=== PATIENT | female | born 1980 | race Caucasian/White ===

== ENCOUNTER 2017-04-13 19:23 | Emergency (ER) | payer SELFPAY ==
[2017-04-13 19:49] VITALS: BP 130/83; PULSE 91; RESP 20; TEMP 98; O2SAT 98
[2017-04-13] MEDS ORDERED: Oxymetazoline 0.05% Nasal Spray (30 ml) NS STA (19:55)
--- NOTE | 2017-04-13 19:59 | C.PDOC ---
History Of Present Illness 36 y/o female with Hx of asthma presents to ED with complaints of nasal congestion for 3 weeks and mild headache. Patient reports nasal discharge as "clear" and denies chest pain, sob, sore throat, vision changes or any other complaints at this time. Time Seen by Provider: 04/13/17 19:44 Chief Complaint (Nursing): Cough, Cold, Congestion History Per: Patient History/Exam Limitations: no limitations Onset/Duration Of Symptoms: Days Current Symptoms Are (Timing): Still Present Past Medical History Reviewed: Historical Data, Nursing Documentation, Vital Signs Vital Signs: Last Vital Signs Temp 98 F 04/13/17 19:47 Pulse 91 H 04/13/17 19:47 Resp 20 04/13/17 19:47 BP 130/83 04/13/17 19:47 Pulse Ox 98 04/13/17 20:01 - Medical History PMH: Asthma Surgical History: Appendectomy, Cholecystectomy Family History: States: No Known Family Hx - Social History Hx Alcohol Use: No Hx Substance Use: No - Immunization History Hx Tetanus Toxoid Vaccination: No Hx Influenza Vaccination: No Hx Pneumococcal Vaccination: No Review Of Systems Except As Marked, All Systems Reviewed And Found Negative. Constitutional: Negative for: Fever, Chills Eyes: Negative for: Vision Change ENT: Positive for: Nose Discharge, Nose Congestion Cardiovascular: Negative for: Chest Pain Respiratory: Negative for: Shortness of Breath Gastrointestinal: Negative for: Nausea, Vomiting Skin: Negative for: Rash Neurological: Positive for: Headache Physical Exam - Physical Exam Appears: Non-toxic, No Acute Distress Skin: Normal Color, Warm, Dry, No Rash Head: Atraumatic, Normacephalic Eye(s): bilateral: Normal Inspection Nose: Discharge (Clear) Oral Mucosa: Moist Throat: Normal, No Erythema Neck: Normal ROM, Supple Chest: Symmetrical Cardiovascular: Rhythm Regular, No Murmur Respiratory: Normal Breath Sounds, No Rales, No Rhonchi, No Wheezing Gastrointestinal/Abdominal: Soft, No Tenderness, No Guarding, No Rebound Extremity: Normal ROM, Capillary Refill (<2 seconds) Neurological/Psych: Oriented x3 ED Course And Treatment O2 Sat by Pulse Oximetry: 98 (RA) Pulse Ox Interpretation: Normal Medical Decision Making Medical Decision Making: nasal congestion - Plan: * Oxymetazoline * advise outpt f/u with ent. Disposition - Disposition Referrals: Jd Rivera MD [Staff Provider] - Disposition: HOME/ ROUTINE Disposition Time: 08:00 Condition: GOOD Additional Instructions: please follow up with your doctor. return to er with worsening symptoms or concerns. Prescriptions: Fluticasone Propionate [Flonase] 1 spr NS DAILY #1 bottle Instructions: Rhinosinusitis (ED) Forms: [email or web address] Connect (Indian) Print Language: SUDANESE - Clinical Impression Clinical Impression: Nasal congestion - Scribe Statement The provider has reviewed the documentation as recorded by the Scribshawn Pitt All medical record entries made by the Michelleibshawn were at my direction and personally dictated by me. I have reviewed the chart and agree that the record accurately reflects my personal performance of the history, physical exam, medical decision making, and the department course for this patient. I have also personally directed, reviewed, and agree with the discharge instructions and disposition.
[2017-04-13] MEDS ORDERED: Oxymetazoline 0.05% Nasal Spray (30 ml) NS ONE (20:04)
== END 2017-04-13 20:28 | disposition home or self-care (01) ==
LOC: C.ER 19:23
DX: R09.81 Nasal congestion (principal)

== ENCOUNTER 2017-04-27 07:21 | Inpatient (IN) | payer MEDICAID, OTHER ==
[2017-04-27] MEDS ORDERED: Ipratropium 0.02% Inhal Soln (0.5 mg/2.5 ml) UD IH ONE (07:32)
[2017-04-27] MEDS ORDERED: Albuterol 0.083% Inhal Sol (2.5 mg/3 mL) UD ONE ×3 (07:32→09:52)
[2017-04-27] MEDS ORDERED: Magnesium Sulfate 1 gm in D5W 1 GM/100 ML BAG IV STA (07:44)
[2017-04-27] MEDS ORDERED: Magnesium Sulfate 1 gm in D5W 1 GM/100 ML BAG IV ONE (07:44)
[2017-04-27] MEDS ORDERED: Albuterol-Ipratrop 3 mg / 0.5 (3 ml) UD INH STA (07:44)
[2017-04-27] MEDS ORDERED: EPINEPHrine 1 mg/ml (1:1000) Inj SC ONE (07:45)
[2017-04-27] MEDS ORDERED: EPINEPHrine 1 mg/ml (1:1000) Inj ONE (07:48)
[2017-04-27] MEDS ORDERED: Albuterol 0.083% Inhal Sol (2.5 mg/3 mL) UD IH STA ×3 (08:01→08:58)
[2017-04-27 08:10] LABS: BASO # 0.1 K/uL (0.0-0.2); BASO % 0.7 % (0.0-2.0); EOS % 12.7 % (0.0-4.0); HEMATOCRIT 46.5 % (34.0-47.0); LYMPH # 4.6 K/uL (1.0-4.3); LYMPH % 56.2 % (20.0-40.0); MEAN CELL VOLUME 93.1 fL (81.0-99.0); MEAN CORPUSCULAR HGB CONC 34.4 g/dL (33.0-37.0); MONO # 0.7 K/uL (0.0-0.8); MONO % 8.7 % (0.0-10.0); NRBC % 0.1 % (0.0-2.0); RED CELL DISTRIBUTION WIDTH 13.7 % (11.5-14.5); WHITE BLOOD COUNT 8.1 K/uL (4.8-10.8)
[2017-04-27 08:24] LABS: CHLORIDE 104 mmol/L (98-107); POTASSIUM 4.1 mmol/L (3.6-5.2); SODIUM 141 mmol/L (132-148)
[2017-04-27 08:26] LABS: ALB/GLOB RATIO 1.3 (1.0-2.1); AST/SGOT 25 U/L (14-36); BILIRUBIN,TOTAL 0.5 mg/dL (0.2-1.3); CARBON DIOXIDE 22 mmol/L (22-30); GFR AFRICAN-AMERICAN > 60; TOTAL PROTEIN 7.8 g/dL (6.3-8.3)
[2017-04-27 08:27] LABS: ALKALINE PHOSPHATASE 67 U/L (38-126); ALT/SGPT 24 U/L (9-52); BLOOD UREA NITROGEN 12 mg/dL (7-17); CALCIUM 9.5 mg/dl (8.6-10.4); GLUCOSE,RANDOM 101 mg/dL (65-105)
[2017-04-27] MEDS ORDERED: Sodium Chloride 0.9% 1,000 ML IV ONE (08:41)
--- NOTE | 2017-04-27 08:41 | C.PDOC ---
History Of Present Illness Patient presents to ED for SOB, wheezing - has h/o asthma as per . History limited due to clinical condition. Time Seen by Provider: 04/27/17 07:28 Chief Complaint (Nursing): Cough, Cold, Congestion History Per: Family History/Exam Limitations: clinical condition Onset/Duration Of Symptoms: Days Current Symptoms Are (Timing): Still Present Past Medical History Reviewed: Historical Data, Nursing Documentation, Vital Signs Vital Signs: Last Vital Signs Temp 98.6 F 05/01/17 00:00 Pulse 98 H 05/01/17 00:00 Resp 20 05/01/17 00:00 BP 135/84 05/01/17 00:00 Pulse Ox 99 05/01/17 08:18 - Medical History PMH: Asthma Surgical History: Appendectomy, Cholecystectomy Family History: States: No Known Family Hx - Social History Hx Alcohol Use: No Hx Substance Use: No - Immunization History Hx Tetanus Toxoid Vaccination: No Hx Influenza Vaccination: No Hx Pneumococcal Vaccination: No Review Of Systems Review Of Systems: ROS cannot be obtained secondary to pt's inabilty to answer questions. Physical Exam - Physical Exam Appears: In Acute Distress (in severe respiratory distress) Skin: Warm, Dry Eye(s): bilateral: Normal Inspection Oral Mucosa: Moist Cardiovascular: Rhythm Regular (tachycardic ) Respiratory: Accessory Muscle Use (severe), No Rales, No Rhonchi, Wheezing ( diffuse, audible wheezing), Other (tripoding) Extremity: Normal ROM, No Pedal Edema, No Calf Tenderness ED Course And Treatment - Laboratory Results Result Diagrams: 04/30/17 06:19 04/30/17 06:19 ECG: Interpreted By Me, Viewed By Me (sinus tachycardia 114 bpm, normal axis, no acute ST/T wave changes) ECG Interpretation: Abnormal O2 Sat by Pulse Oximetry: 99 (RA) Pulse Ox Interpretation: Normal - Radiology CXR: Interpreted by Me, Viewed By Me CXR Interpretation: Yes: No Acute Disease. No: Infiltrates Progress Note: Bipap ordered emergently. Patient placed on brick yard hand, given IV solumedrol, IV mag sulfate 2g, epinephrine SC, Terbutaline SC, nebulizer treatments. Reevaluation Time: 09:15 Reassessment Condition: Improved (Patient reassessed, is significantly improved - able to speak in full sentences, POx 100% on Bipap. She has h/o asthma, but denies prior admissions, intubations. Admits to nonproductive cough, has had wheezing for approx 1 week but worsened last night. On exam, (+) expiratory wheezing B/L. Patient will need admission for asthma exacerbation.) Critical Care Time - Critical Care Note Total Time (in mins): 45 Documented critical care: time excludes all time spent performing seperately billable procedures. Medical Decision Making Medical Decision Making: differential diagnoses considered: Asthma exacerbation, COPD, CHF, MO/ACS, PE, pneumonia, bronchitis Disposition - Disposition Disposition: HOSPITALIZED Disposition Time: 09:22 Condition: STABLE - Clinical Impression Clinical Impression: Asthma, Status asthmaticus Decision To Admit - Pt Status Changed To: Hospital Disposition Of: Inpatient - Admit Certification Admit to Inpatient:: After my assessment, the patient will require hospitalization for at least two midnights. This is because of the severity of symptoms shown, intensity of services needed, and/or the medical risk in this patient being treated as an outpatient. - InPatient: Physician Admission Certification: I certify that this patient requires 2 or more midnights of care for the following reason:: see notes - . Bed Request Type: Telemetry Admitting Physician: Alba Terrazas Patient Diagnosis: Asthma, Status asthmaticus
[2017-04-27 08:48] LABS: ABG ALLEN TEST POS; ARTERIAL BLOOD GAS MODE BiPAP; DRAW SITE LRA
[2017-04-27] MEDS ORDERED: Sodium Chloride 0.9% 1,000 ML ONE (09:02)
--- NOTE | 2017-04-27 09:47 | RAD ---
PROCEDURE: CHEST RADIOGRAPH, 1 VIEW HISTORY: Shortness of breath COMPARISON: None available. FINDINGS: LUNGS: Mild venous congestion. Mild patchy increased markings at the lung bases. PLEURA: No pneumothorax or pleural fluid seen. CARDIOVASCULAR: Normal. OSSEOUS STRUCTURES: No significant abnormalities. VISUALIZED UPPER ABDOMEN: Normal. OTHER FINDINGS: None. IMPRESSION: Mild venous congestion. Mild patchy increased markings at the lung bases.
[2017-04-27 09:56] LABS: RBC URINE < 1 /hpf (0-3); URINE BILIRUBIN NEGATIVE (NEGATIVE); URINE BLOOD NEGATIVE (NEGATIVE); URINE COLOR Yellow (YELLOW); URINE GLUCOSE (UA) 3+ mg/dL (Normal); URINE KETONE NEGATIVE (NEGATIVE); URINE LEUKOCYTE ESTERASE NEG Leu/uL (Negative); URINE PROTEIN NEGATIVE (NEGATIVE); URINE UROBILINOGEN NORMAL mg/dL (0.2-1.0); WBC URINE 1 /hpf (0-5)
[2017-04-27] MEDS: Albuterol 0.083% Inhal Sol (2.5 mg/3 mL) UD INH SCH ×2 (10:00→12:54)
[2017-04-27] MEDS ORDERED: Moxifloxacin IV 400mg/250ml NS 400 MG/250 ML BAG IVPB SCH (11:00)
[2017-04-27] MEDS ORDERED: Acetylcysteine 20% Inhal Soln (4ml) INH SCH ×2 (11:00→12:45)
--- NOTE | 2017-04-27 11:29 | CP.PCM.HP ---
<Domingo Downey - Last Filed: 04/27/17 15:09> History of Present Illness - History of Present Illness History of Present Illness: CC: SOB HPI: 36F PMHx asthma presented with shortness of breath. Pt said she has asthma since 8 years old and exacerbated 2 years ago for which she had to go to a hospital. Pt said this time felt more severe and started 1.5 months ago. Pt woke up 1-2 times every night due to trouble breathing and wheezing. Pt also uses rescue inhaler on daily basis. Patient also complains of sinusitis for several months and was treated in [place]. Pt said she only has nebulizer, rescue inhaler and Montelukast at home and she took them as directed. Pt also complains of back pain and bilateral headache with associated photophobia. Pt denied fever, chest pain, abdominal pain, constipation, dysuria or diarrhea. Per respiratory therapist, pt initially was unable to speak in complete sentences or perform pre/post treatment peak flow due to severe SOB when presented to ED. PMHx: asthma PSHx: hysterectomy 2010, cholecystectomy 2012, appendectomy 2013 FMHx: mother, aunt and son has asthma Social: denied tobacco use but grew up with second hand smoke from mother and current coworkers, denied ETOH or drugs. 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 absent: Fever, Night Sweats, Weakness - EENT Eyes: absent: Blurred Vision Nose/Mouth/Throat: Nasal Congestion - Cardiovascular Cardiovascular: Dyspnea. absent: Chest Pain, Edema, Leg Edema - Respiratory Respiratory: Cough, Dyspnea, Dyspnea on Exertion, Wheezing, Pain on Inspiration , Excessive Mucous Production - Gastrointestinal Gastrointestinal: absent: Abdominal Pain, Constipation, Diarrhea, Nausea, Vomiting - Genitourinary Genitourinary: absent: Dysuria, Pyuria - Musculoskeletal Musculoskeletal: Back Pain, Neck Pain. absent: Numbness - Integumentary Integumentary: absent: Skin Pain - Neurological Neurological: absent: Confusion - Psychiatric Psychiatric: absent: Anxiety Past Patient History - Infectious Disease Hx of Infectious Diseases: None - Past Social History Smoking Status: Never Smoked - PULMONARY Hx Asthma: Yes - PSYCHIATRIC Hx Substance Use: No - SURGICAL HISTORY Hx Appendectomy: Yes Hx Cholecystectomy: Yes - ANESTHESIA Hx Anesthesia: Yes Hx Anesthesia Reactions: Yes (HEADACHE) Meds Allergies/Adverse Reactions: Allergies Allergy/AdvReac Type Severity Reaction Status Date / Time No Known Allergies Allergy Verified 04/27/17 07:26 Physical Exam - Constitutional Appears: Non-toxic, No Acute Distress Additional comments: on BIPAP - Head Exam Head Exam: NORMOCEPHALIC - Eye Exam Eye Exam: Normal appearance Pupil Exam: NORMAL ACCOMODATION - Respiratory Exam Respiratory Exam: Accessory Muscle Use, Decreased Breath Sounds, Rales, Rhonchi , Wheezes, NORMAL BREATHING PATTERN Additional comments: on BIPAP - Cardiovascular Exam Cardiovascular Exam: Tachycardia, +S1, +S2. absent: Gallop, Rubs - GI/Abdominal Exam GI & Abdominal Exam: Normal Bowel Sounds, Soft. absent: Tenderness - Extremities Exam Extremities exam: Negative for: pedal edema, tenderness - Neurological Exam Neurological exam: Alert, Oriented x3 - Psychiatric Exam Psychiatric exam: Normal Mood - Skin Skin Exam: Dry, Intact Results - Vital Signs Recent Vital Signs: Last Vital Signs Temp 98.5 F 04/27/17 07:24 Pulse 112 H 04/27/17 09:00 Resp 22 04/27/17 09:00 BP 144/77 04/27/17 09:00 Pulse Ox 99 04/27/17 09:40 - Labs Result Diagrams: 04/27/17 07:59 04/27/17 07:59 Labs: Laboratory Results - last 24 hr 04/27/17 04/27/17 04/27/17 07:59 07:59 08:45 WBC 8.1 RBC 5.00 Hgb 16.0 Hct 46.5 MCV 93.1 MCH 32.0 H MCHC 34.4 RDW 13.7 Plt Count 229 MPV 10.0 Neut % (Auto) 21.7 L Lymph % (Auto) 56.2 H Morris % (Auto) 8.7 Eos % (Auto) 12.7 H Baso % (Auto) 0.7 Neut # 1.8 Lymph # 4.6 H Morris # 0.7 Eos # 1.0 H Baso # 0.1 Puncture Site Lra pCO2 42 pO2 67 L HCO3 22.4 ABG pH 7.34 L ABG Total CO2 24.0 ABG O2 Saturation 94.4 L ABG Base Excess -3.0 L Rafael Test Pos ABG Potassium 2.8 L A-a O2 Difference 594.0 Respiratory Index 8.9 Glucose 187 H Lactate 3.6 H Vent Mode Bipap FiO2 100.0 Inspiratory BiPAP 12 Expiratory BiPAP 6 Sodium 141 141.0 Potassium 4.1 Chloride 104 108.0 H Carbon Dioxide 22 Anion Gap 18 BUN 12 Creatinine 0.7 Est GFR ( Amer) > 60 Est GFR (Non-Af Amer) > 60 Random Glucose 101 Calcium 9.5 Total Bilirubin 0.5 AST 25 ALT 24 Alkaline Phosphatase 67 Total Protein 7.8 Albumin 4.4 Globulin 3.5 Albumin/Globulin Ratio 1.3 Arterial Blood Potassium 2.8 L Urine Color Urine Clarity Urine pH Ur Specific Piercy Urine Protein Urine Glucose (UA) Urine Ketones Urine Blood Urine Nitrate Urine Bilirubin Urine Urobilinogen Ur Leukocyte Esterase Urine WBC (Auto) Urine RBC (Auto) Ur Squamous Epith Cells Urine HCG, Qual 04/27/17 09:40 WBC RBC Hgb Hct MCV MCH MCHC RDW Plt Count MPV Neut % (Auto) Lymph % (Auto) Morris % (Auto) Eos % (Auto) Baso % (Auto) Neut # Lymph # Morris # Eos # Baso # Puncture Site pCO2 pO2 HCO3 ABG pH ABG Total CO2 ABG O2 Saturation ABG Base Excess Rafael Test ABG Potassium A-a O2 Difference Respiratory Index Glucose Lactate Vent Mode FiO2 Inspiratory BiPAP Expiratory BiPAP Sodium Potassium Chloride Carbon Dioxide Anion Gap BUN Creatinine Est GFR ( Amer) Est GFR (Non-Af Amer) Random Glucose Calcium Total Bilirubin AST ALT Alkaline Phosphatase Total Protein Albumin Globulin Albumin/Globulin Ratio Arterial Blood Potassium Urine Color Yellow Urine Clarity Clear Urine pH 6.0 Ur Specific Piercy 1.014 Urine Protein Negative Urine Glucose (UA) 3+ H Urine Ketones Negative Urine Blood Negative Urine Nitrate Negative Urine Bilirubin Negative Urine Urobilinogen Normal Ur Leukocyte Esterase Neg Urine WBC (Auto) 1 Urine RBC (Auto) < 1 Ur Squamous Epith Cells 1 Urine HCG, Qual Negative Assessment & Plan - Assessment and Plan (Free Text) Assessment: Severe persistent asthma exacerbation ABG PO2 67, PCO2 42, PCO3 22 and pH 7.34 on admission. Pt unable to complete peak flow per respiratory. Currently on BIPAP. Pt received Albuterol x3, Duoneb, epinephrine, Atrovent, Terbutaline and Magnesium in ED. CXR showed mild venous congestions with increased patchy bases, EKG showed sinus tach at 114 bpm without acute changes. Flu, Legionaire, GBS, N. meningitidis and S. pneumoniae AG negative. Pulmonary Dr. Pineda consulted (covering Dr. Magdaleno), help appreciated. Continue BIPAP PRN. Solumedrol 60mg IV q8H. Duoneb q4H. Cipro 400mg IV q12H started 04/27. Mucinex 600mg PO BID. Phenergan/Codeine PRN. Claritin 10mg PO daily and Singulair 10mg PO BID per Dr. Pineda. F/U repeat pre/post treatment peak flow. F/U electrolytes at 4pm and tomorrow AM. F/U repeat CXR tomorrow AM. F/U Mycoplasma and GAS AG. Chronic sinusitis OMT performed on the sinus. Cipro 400mg IV q12H started 04/27. Will consider CT sinus after clinically improved. Back pain Toradol 30mg IV q6H PRN. Headache Toradol 30mg IV q6H PRN. Prophylactic measure Protonix, SCD. <Alba Terrazas V - Last Filed: 04/27/17 17:09> Results - Vital Signs Recent Vital Signs: Last Vital Signs Temp 97.7 F 04/27/17 14:40 Pulse 116 H 04/27/17 15:53 Resp 16 04/27/17 14:40 BP 114/69 04/27/17 14:40 Pulse Ox 100 04/27/17 14:40 - Labs Result Diagrams: 04/27/17 07:59 04/27/17 15:56 Labs: Laboratory Results - last 24 hr 04/27/17 04/27/17 04/27/17 07:59 07:59 08:45 WBC 8.1 RBC 5.00 Hgb 16.0 Hct 46.5 MCV 93.1 MCH 32.0 H MCHC 34.4 RDW 13.7 Plt Count 229 MPV 10.0 Neut % (Auto) 21.7 L Lymph % (Auto) 56.2 H Morris % (Auto) 8.7 Eos % (Auto) 12.7 H Baso % (Auto) 0.7 Neut # 1.8 Lymph # 4.6 H Morris # 0.7 Eos # 1.0 H Baso # 0.1 Puncture Site Lra pCO2 42 pO2 67 L HCO3 22.4 ABG pH 7.34 L ABG Total CO2 24.0 ABG O2 Saturation 94.4 L ABG Base Excess -3.0 L Rafael Test Pos ABG Potassium 2.8 L A-a O2 Difference 594.0 Respiratory Index 8.9 Glucose 187 H Lactate 3.6 H Vent Mode Bipap FiO2 100.0 Inspiratory BiPAP 12 Expiratory BiPAP 6 Sodium 141 141.0 Potassium 4.1 Chloride 104 108.0 H Carbon Dioxide 22 Anion Gap 18 BUN 12 Creatinine 0.7 Est GFR ( Amer) > 60 Est GFR (Non-Af Amer) > 60 Random Glucose 101 Calcium 9.5 Magnesium Total Bilirubin 0.5 AST 25 ALT 24 Alkaline Phosphatase 67 Total Protein 7.8 Albumin 4.4 Globulin 3.5 Albumin/Globulin Ratio 1.3 Arterial Blood Potassium 2.8 L Urine Color Urine Clarity Urine pH Ur Specific Piercy Urine Protein Urine Glucose (UA) Urine Ketones Urine Blood Urine Nitrate Urine Bilirubin Urine Urobilinogen Ur Leukocyte Esterase Urine WBC (Auto) Urine RBC (Auto) Ur Squamous Epith Cells Urine HCG, Qual Influenza Typ A,B (EIA) H.influenzae Type B Ag Ur L.pneumophila Ag N.meningitidis ACY/W135 N.meningi B/E.coli K1 Ag Group B Strep Antigen S. pneumoniae Antigen 04/27/17 04/27/17 04/27/17 09:22 09:22 09:40 WBC RBC Hgb Hct MCV MCH MCHC RDW Plt Count MPV Neut % (Auto) Lymph % (Auto) Morris % (Auto) Eos % (Auto) Baso % (Auto) Neut # Lymph # Morris # Eos # Baso # Puncture Site pCO2 pO2 HCO3 ABG pH ABG Total CO2 ABG O2 Saturation ABG Base Excess Rafael Test ABG Potassium A-a O2 Difference Respiratory Index Glucose Lactate Vent Mode FiO2 Inspiratory BiPAP Expiratory BiPAP Sodium Potassium Chloride Carbon Dioxide Anion Gap BUN Creatinine Est GFR ( Amer) Est GFR (Non-Af Amer) Random Glucose Calcium Magnesium Total Bilirubin AST ALT Alkaline Phosphatase Total Protein Albumin Globulin Albumin/Globulin Ratio Arterial Blood Potassium Urine Color Yellow Urine Clarity Clear Urine pH 6.0 Ur Specific Piercy 1.014 Urine Protein Negative Urine Glucose (UA) 3+ H Urine Ketones Negative Urine Blood Negative Urine Nitrate Negative Urine Bilirubin Negative Urine Urobilinogen Normal Ur Leukocyte Esterase Neg Urine WBC (Auto) 1 Urine RBC (Auto) < 1 Ur Squamous Epith Cells 1 Urine HCG, Qual Negative Influenza Typ A,B (EIA) Negative for flu a/b H.influenzae Type B Ag Not required Ur L.pneumophila Ag N.meningitidis ACY/W135 Not required N.meningi B/E.coli K1 Ag Not required Group B Strep Antigen Not required S. pneumoniae Antigen Negative 04/27/17 04/27/17 11:53 15:56 WBC RBC Hgb Hct MCV MCH MCHC RDW Plt Count MPV Neut % (Auto) Lymph % (Auto) Morris % (Auto) Eos % (Auto) Baso % (Auto) Neut # Lymph # Morris # Eos # Baso # Puncture Site pCO2 pO2 HCO3 ABG pH ABG Total CO2 ABG O2 Saturation ABG Base Excess Rafael Test ABG Potassium A-a O2 Difference Respiratory Index Glucose Lactate Vent Mode FiO2 Inspiratory BiPAP Expiratory BiPAP Sodium 139 Potassium 4.5 Chloride 106 Carbon Dioxide 16 L Anion Gap 22 H BUN 8 Creatinine 0.7 Est GFR ( Amer) > 60 Est GFR (Non-Af Amer) > 60 Random Glucose 173 H Calcium 8.5 L Magnesium 1.8 Total Bilirubin AST ALT Alkaline Phosphatase Total Protein Albumin Globulin Albumin/Globulin Ratio Arterial Blood Potassium Urine Color Urine Clarity Urine pH Ur Specific Piercy Urine Protein Urine Glucose (UA) Urine Ketones Urine Blood Urine Nitrate Urine Bilirubin Urine Urobilinogen Ur Leukocyte Esterase Urine WBC (Auto) Urine RBC (Auto) Ur Squamous Epith Cells Urine HCG, Qual Influenza Typ A,B (EIA) H.influenzae Type B Ag Ur L.pneumophila Ag Negative N.meningitidis ACY/W135 N.meningi B/E.coli K1 Ag Group B Strep Antigen S. pneumoniae Antigen Attending/Attestation - Attestation I have personally seen and examined this patient.: Yes I have fully participated in the care of the patient.: Yes I have reviewed all pertinent clinical information: Yes Notes (Text): Patient seen, examined and case discussed with day-time resident. Patient seen in [facility] Bed 4 on 04/27/17 approximately 9:45AM. Patient with history of asthma, no prior hx intubation, diagnosed during childhood, comes in after persistent nasal congestion, worsening shortness of breathe, and wheezing. Patient reports she normally uses her inhaler sparingly but has required daily use this past week. Overnight, she felt worse and brought her in today. Discussed with ED Physician, patient was in acute respiratory distress--> in ED , given Terbutaline 0.5mg subq, Solumedrol 125mg IVPX1, Magnesium Sulfate 1gram IV X2, Epinephrine 0.5mg subqX1 and 4 Albuterol nebulizer treatments. Respiratory therapist unable to ascertain pre-flow prior to starting nebulizer treatment given patient's clinical status. Patient improved after initial interventions. Patient has facial tenderness over the forehead and zygoma. No meningeal signs. No nuchal rigidity. Neuro intact. Lung exam: patient is tight, on Bipap, poor air exchange, +wheezing Assessment/Plan 1) Acute Respiratory Distress secondary to Asthma exacerbation * Admit to telemetry * Change to inpatient given patient has severe asthma exacerbation * Consult: Dr. Pineda (pulm) covering for Dr. 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 pneumoniae: negative, negative: legionella; negative influenza, group A beta Strep pending 2) Asthma exacerbation * severe persistent (day symptoms for past week requiring nebulizer) 3) Sinusitis * Persistent symptoms in spite prior treatment * Prior ED visit on 04/13/17 * Start Ciprofloxocin 400mg Iv Q 12hours * ENT eval * noninvasive soft tissue techniques to assist with lymphatic drainage 4) Prophylactic care * SCDS b/l * Protonix 40mg IV Q daily for GI ppx
[2017-04-27] MEDS: MethylPREDNISolone 40 mg Vial IVP SCH ×4 (12:11→19:50)
[2017-04-27] MEDS ORDERED: Ciprofloxacin 400mg/200ml D5W 400 MG/200 ML BAG IVPB ONE (12:37)
[2017-04-27] MEDS: Ciprofloxacin 400mg/200ml D5W 400 MG/200 ML BAG IVPB SCH ×2 (12:45→23:21)
[2017-04-27] MEDS ORDERED: Albuterol-Ipratrop 3 mg / 0.5 (3 ml) UD ONE (12:45)
[2017-04-27] MEDS: Albuterol-Ipratrop 3 mg / 0.5 (3 ml) UD INH SCH ×3 (12:54→19:43)
[2017-04-27 13:27] LABS: LEGIONELLA AG URINE NEGATIVE (NEGATIVE)
[2017-04-27 13:34] LABS: H INFLUENZAE B NOT REQUIRED (NEGATIVE); N MENINGITIS ACY/W135 NOT REQUIRED (NEGATIVE); N MENINGITIS B/ECOLI K1 NOT REQUIRED (NEGATIVE)
[2017-04-27 16:22] LABS: CHLORIDE 106 mmol/L (98-107); POTASSIUM 4.5 mmol/L (3.6-5.2); SODIUM 139 mmol/L (132-148)
[2017-04-27 16:25] LABS: BLOOD UREA NITROGEN 8 mg/dL (7-17); CARBON DIOXIDE 16 mmol/L (22-30); GFR AFRICAN-AMERICAN > 60
[2017-04-27 16:26] LABS: CALCIUM 8.5 mg/dl (8.6-10.4); GLUCOSE,RANDOM 173 mg/dL (65-105); MAGNESIUM 1.8 mg/dL (1.6-2.3)
[2017-04-27] MEDS: Promethazine/Cod 6.25mg-10mg/5ml Syr UD PO PRN (18:22)
[2017-04-27] MEDS: Saccharomyces Boulardi 250 mg Cap PO SCH (18:23)
[2017-04-27] MEDS: guaiFENesin 600 mg ER Tab PO SCH (19:00)
--- NOTE | 2017-04-27 21:44 | CT ---
EXAM: CT Maxillofacial Sinuses Without Intravenous Contrast CLINICAL HISTORY: 36 years old, female; Signs and symptoms; Nasal congestion; Additional info: Sinusitis TECHNIQUE: Computed tomography images of the maxillofacial sinuses without intravenous contrast. All CT scans at this facility use one or more dose reduction techniques, viz.: automated exposure control; ma/kV adjustment per patient size (including targeted exams where dose is matched to indication; i.e. head); or iterative reconstruction technique. Coronal and sagittal reformatted images were created and reviewed. COMPARISON: No relevant prior studies available. FINDINGS: Maxillary sinuses: Moderate mucosal thickening/inspissated mucous. LEFT maxillary retention cyst. Sphenoid sinuses: Moderate to extensive mucosal thickening/inspissated mucous. Frontal sinuses: Moderate mucosal thickening/inspissated mucus/mild fluid. Ethmoid air cells: Near complete opacification/inspissated mucous. Nasal cavity/septum: Mucosal thickening. Bones/joints: No acute fracture. Soft tissues: Unremarkable. Orbits: Unremarkable as visualized. IMPRESSION: 1. Sinus disease as above.
--- NOTE | 2017-04-27 21:44 | CP.PCM.CON ---
History of Present Illness - History of Present Illness History of Present Illness: Chief complaint: Shortness of breath History present illness: 36-year-old female with a long-standing history of asthma, not controlled well came to the emergency room with a severe worsening shortness of breath. Patient has a long-standing history of asthma, she has a very frequent exacerbations in the past. Patient had a daily symptoms of shortness of breath, and the using only inhalers on and off, occasionally uses an nebulizers. Patient is not taking any inhaled corticosteroids. Patient is not monitoring her symptoms, and also not seeing the doctors properly. Patient does not have any pets, no gas or fumes exposure Patient started having the symptoms for 1 week, gradually got worse, last night the patient was not able to sleep well and this morning she was having severe shortness of breath, and unable to breathe, in the emergency room patient was immediately treated with the BiPAP and corticosteroids Past medical history: Bronchial asthma Patient does not have a allergy history Personal history: Nonsmoker nonalcoholic. Review of system noted from the chart Medication history reviewed Family history noncontributory Review of system: Complaining of increasing cough and wheezing shortness of breath mucus production no fever or chills. Vital signs reviewed No neck vein distention noted Bilateral wheezing, air entry noted CVS regular heart sound, no murmur noted Abdomen soft, nontender. Extremities no pedal edema NO BAKE MOLDER alert awake oriented 3, no functional neurological deficit Labs reviewed Elevated eosinophil noted. Chest x-ray no infiltrate Assessment and recommendation: 36-year-old female admitted with acute exacerbation of severe asthma, acute severe asthma. Continue the bronchodilators. Montelukast 10 mg twice a day. Claritin. IgE level. Continue this tonight and will follow the patient. Past Patient History - Infectious Disease Hx of Infectious Diseases: None - Past Medical History & Family History Past Medical History?: Yes - Past Social History Smoking Status: Never Smoked - PULMONARY Hx Asthma: Yes - MUSCULOSKELETAL/RHEUMATOLOGICAL Hx Falls: No - GASTROINTESTINAL Other/Comment: appendectomy/gall bladder remova/ - PSYCHIATRIC Hx Substance Use: No - SURGICAL HISTORY Hx Appendectomy: Yes Hx Cholecystectomy: Yes - ANESTHESIA Hx Anesthesia: Yes Hx Anesthesia Reactions: Yes (HEADACHE) Meds Allergies/Adverse Reactions: Allergies Allergy/AdvReac Type Severity Reaction Status Date / Time No Known Allergies Allergy Verified 04/27/17 07:26 - Medications Medications: Current Medications Albuterol/Ipratropium (Duoneb 3 Mg/0.5 Mg (3 Ml) Ud) 3 ml INH RQ4 [facility] Guaifenesin (Mucinex La) 600 mg PO BID [facility] Last Admin: 04/27/17 19:00 Dose: 600 mg Ciprofloxacin (Cipro 400mg/200ml Dsw) 400 mg in 200 mls @ 125 mls/hr IVPB Q12H [facility] Last Admin: 04/27/17 12:45 Dose: 125 mls/hr Ketorolac Tromethamine (Toradol) 30 mg IVP Q6 PRN PRN Reason: moderate pain Loratadine (Claritin) 10 mg PO DAILY [facility] Methylprednisolone (Solu-Medrol) 60 mg IVP Q8H [facility] Last Admin: 04/27/17 19:50 Dose: 60 mg Montelukast Sodium (Singulair) 10 mg PO BID [facility] Last Admin: 04/27/17 18:22 Dose: 10 mg Pantoprazole Sodium (Protonix Ec Tab) 40 mg PO DAILY [facility] Promethazine HCl/Codeine (Phenergan/Codeine Oral Syrup) 5 ml PO Q4 PRN PRN Reason: cough Last Admin: 04/27/17 18:22 Dose: 5 ml Saccharomyces Boulardii (Florastor) 250 mg PO BID [facility] Last Admin: 04/27/17 18:23 Dose: 250 mg Results - Vital Signs Recent Vital Signs: Last Vital Signs Temp 98 F 04/27/17 20:00 Pulse 128 H 04/27/17 20:30 Resp 21 04/27/17 20:30 BP 125/85 04/27/17 18:28 Pulse Ox 96 04/27/17 20:30 - Labs Result Diagrams: 04/27/17 07:59 04/27/17 15:56 Labs: Laboratory Results - last 24 hr 04/27/17 04/27/17 04/27/17 07:59 07:59 08:45 WBC 8.1 RBC 5.00 Hgb 16.0 Hct 46.5 MCV 93.1 MCH 32.0 H MCHC 34.4 RDW 13.7 Plt Count 229 MPV 10.0 Neut % (Auto) 21.7 L Lymph % (Auto) 56.2 H [place] % (Auto) 8.7 Eos % (Auto) 12.7 H Baso % (Auto) 0.7 Neut # 1.8 Lymph # 4.6 H [place] # 0.7 Eos # 1.0 H Baso # 0.1 Puncture Site Lra pCO2 42 pO2 67 L HCO3 22.4 ABG pH 7.34 L ABG Total CO2 24.0 ABG O2 Saturation 94.4 L ABG Base Excess -3.0 L Rafael Test Pos ABG Potassium 2.8 L A-a O2 Difference 594.0 Respiratory Index 8.9 Glucose 187 H Lactate 3.6 H Vent Mode Bipap FiO2 100.0 Inspiratory BiPAP 12 Expiratory BiPAP 6 Sodium 141 141.0 Potassium 4.1 Chloride 104 108.0 H Carbon Dioxide 22 Anion Gap 18 BUN 12 Creatinine 0.7 Est GFR ( Amer) > 60 Est GFR (Non-Af Amer) > 60 Random Glucose 101 Calcium 9.5 Magnesium Total Bilirubin 0.5 AST 25 ALT 24 Alkaline Phosphatase 67 Total Protein 7.8 Albumin 4.4 Globulin 3.5 Albumin/Globulin Ratio 1.3 Arterial Blood Potassium 2.8 L Urine Color Urine Clarity Urine pH Ur Specific [place] Urine Protein Urine Glucose (UA) Urine Ketones Urine Blood Urine Nitrate Urine Bilirubin Urine Urobilinogen Ur Leukocyte Esterase Urine WBC (Auto) Urine RBC (Auto) Ur Squamous Epith Cells Urine HCG, Qual Influenza Typ A,B (EIA) H.influenzae Type B Ag Ur L.pneumophila Ag N.meningitidis [id number] N.meningi B/E.coli K1 Ag Group B Strep Antigen S. pneumoniae Antigen 04/27/17 04/27/17 04/27/17 09:22 09:22 09:40 WBC RBC Hgb Hct MCV MCH MCHC RDW Plt Count MPV Neut % (Auto) Lymph % (Auto) [place] % (Auto) Eos % (Auto) Baso % (Auto) Neut # Lymph # [place] # Eos # Baso # Puncture Site pCO2 pO2 HCO3 ABG pH ABG Total CO2 ABG O2 Saturation ABG Base Excess Rafael Test ABG Potassium A-a O2 Difference Respiratory Index Glucose Lactate Vent Mode FiO2 Inspiratory BiPAP Expiratory BiPAP Sodium Potassium Chloride Carbon Dioxide Anion Gap BUN Creatinine Est GFR ( Amer) Est GFR (Non-Af Amer) Random Glucose Calcium Magnesium Total Bilirubin AST ALT Alkaline Phosphatase Total Protein Albumin Globulin Albumin/Globulin Ratio Arterial Blood Potassium Urine Color Yellow Urine Clarity Clear Urine pH 6.0 Ur Specific [place] 1.014 Urine Protein Negative Urine Glucose (UA) 3+ H Urine Ketones Negative Urine Blood Negative Urine Nitrate Negative Urine Bilirubin Negative Urine Urobilinogen Normal Ur Leukocyte Esterase Neg Urine WBC (Auto) 1 Urine RBC (Auto) < 1 Ur Squamous Epith Cells 1 Urine HCG, Qual Negative Influenza Typ A,B (EIA) Negative for flu a/b H.influenzae Type B Ag Not required Ur L.pneumophila Ag N.meningitidis [id number] Not required N.meningi B/E.coli K1 Ag Not required Group B Strep Antigen Not required S. pneumoniae Antigen Negative 04/27/17 04/27/17 11:53 15:56 WBC RBC Hgb Hct MCV MCH MCHC RDW Plt Count MPV Neut % (Auto) Lymph % (Auto) [place] % (Auto) Eos % (Auto) Baso % (Auto) Neut # Lymph # [place] # Eos # Baso # Puncture Site pCO2 pO2 HCO3 ABG pH ABG Total CO2 ABG O2 Saturation ABG Base Excess Rafael Test ABG Potassium A-a O2 Difference Respiratory Index Glucose Lactate Vent Mode FiO2 Inspiratory BiPAP Expiratory BiPAP Sodium 139 Potassium 4.5 Chloride 106 Carbon Dioxide 16 L Anion Gap 22 H BUN 8 Creatinine 0.7 Est GFR ( Amer) > 60 Est GFR (Non-Af Amer) > 60 Random Glucose 173 H Calcium 8.5 L Magnesium 1.8 Total Bilirubin AST ALT Alkaline Phosphatase Total Protein Albumin Globulin Albumin/Globulin Ratio Arterial Blood Potassium Urine Color Urine Clarity Urine pH Ur Specific [place] Urine Protein Urine Glucose (UA) Urine Ketones Urine Blood Urine Nitrate Urine Bilirubin Urine Urobilinogen Ur Leukocyte Esterase Urine WBC (Auto) Urine RBC (Auto) Ur Squamous Epith Cells Urine HCG, Qual Influenza Typ A,B (EIA) H.influenzae Type B Ag Ur L.pneumophila Ag Negative N.meningitidis [id number] N.meningi B/E.coli K1 Ag Group B Strep Antigen S. pneumoniae Antigen
[2017-04-28] MEDS: Albuterol-Ipratrop 3 mg / 0.5 (3 ml) UD INH SCH ×6 (00:44→19:30)
[2017-04-28] MEDS: MethylPREDNISolone 40 mg Vial IVP SCH ×3 (03:05→18:23)
[2017-04-28 06:34] LABS: BASO % 0.1 % (0.0-2.0); HEMATOCRIT 42.2 % (34.0-47.0); LYMPH # 1.1 K/uL (1.0-4.3); LYMPH % 7.5 % (20.0-40.0); MEAN CELL VOLUME 93.2 fL (81.0-99.0); MEAN CORPUSCULAR HGB CONC 33.2 g/dL (33.0-37.0); MEAN PLATELET VOLUME 10.2 fL (7.2-11.7); MONO # 0.4 K/uL (0.0-0.8); MONO % 2.9 % (0.0-10.0); PLATELET COUNT 211 K/uL (130-400); RED CELL DISTRIBUTION WIDTH 13.9 % (11.5-14.5); WHITE BLOOD COUNT 14.2 K/uL (4.8-10.8)
[2017-04-28 06:42] LABS: CHLORIDE 102 mmol/L (98-107)
[2017-04-28 06:43] LABS: POTASSIUM 4.4 mmol/L (3.6-5.2); SODIUM 137 mmol/L (132-148)
[2017-04-28 06:45] LABS: ALB/GLOB RATIO 1.2 (1.0-2.1); ALKALINE PHOSPHATASE 59 U/L (38-126); ALT/SGPT 30 U/L (9-52); AST/SGOT 19 U/L (14-36); BILIRUBIN,TOTAL 0.2 mg/dL (0.2-1.3); BLOOD UREA NITROGEN 12 mg/dL (7-17); CARBON DIOXIDE 19 mmol/L (22-30); GFR AFRICAN-AMERICAN > 60; GLUCOSE,RANDOM 134 mg/dL (65-105)
[2017-04-28 06:46] LABS: CALCIUM 9.5 mg/dl (8.6-10.4); PHOSPHOROUS 3.9 mg/dL (2.5-4.5)
[2017-04-28] MEDS ORDERED: Azithromycin 500 MG in Sodium Chloride 0.9% 250 ML IVPB ONE (07:26)
[2017-04-28 08:07] LABS: NEUTROPHIL 82 % (50-75); TOTAL CELLS COUNTED 100
--- NOTE | 2017-04-28 08:37 | RAD ---
Chest x-ray single frontal view History: Asthma exacerbation. Comparison: 04/27/2017 Findings: Mild venous congestion. Right hilar prominence. Patchy increased markings at the bilateral lung bases. Trace bilateral pleural effusions. Heart size within normal limits. Degenerative changes in the spine and shoulders. Impression: Mild venous congestion. Right hilar prominence. Patchy increased markings at the bilateral lung bases. Trace bilateral pleural effusions. Heart size within normal limits.
[2017-04-28] MEDS: guaiFENesin 600 mg ER Tab PO SCH ×2 (10:16→18:22)
[2017-04-28] MEDS: Saccharomyces Boulardi 250 mg Cap PO SCH ×2 (10:16→18:22)
[2017-04-28] MEDS: Pantoprazole 40 mg EC Tab PO SCH (10:17)
[2017-04-28] MEDS ORDERED: Albuterol-Ipratrop 3 mg / 0.5 (3 ml) UD INH STA (10:31)
--- NOTE | 2017-04-28 11:47 | CP.PCM.CON ---
History of Present Illness - History of Present Illness History of Present Illness: 36F PMHx asthma presented with shortness of breath. ID consulteed for antibiotic management c/o weakness headache and SOB cough mostly non productive Does not take maintainance meds No pets PMHx: asthma PSHx: hysterectomy 2010, cholecystectomy 2012, appendectomy 2013 FMHx: mother, aunt and son has asthma Social: denied tobacco use but grew up with second hand smoke from mother and current coworkers, denied ETOH or drugs. 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 PMD: none Review of Systems - Constitutional Constitutional: As Per HPI - EENT Eyes: absent: As Per HPI, Blind Spots, Blurred Vision, Change in Vision, Decreased Night Vision, Diplopia, Discharge, Dry Eye, Exophthalmos, Floaters, Irritation, Itchy Eyes, Loss of Peripheral Vision, Pain, Photophobia, Requires Corrective Lenses, Sees Flashes, Spots in Vision, Tunnel Vision, Other Visual Disturbances, Loss of Vision, Other Ears: absent: As Per HPI, Decreased Hearing, Ear Discharge, Ear Pain, Tinnitus, Abnormal Hearing, Disequilibrium, Dizziness, Other Nose/Mouth/Throat: absent: As Per HPI, Epistaxis, Nasal Congestion, Nasal Discharge, Nasal Obstruction, Nasal Trauma, Nose Pain, Post Nasal Drip, Sinus Pain, Sinus Pressure, Bleeding Gums, Change in Voice, Dental Pain, Dry Mouth, Dysphagia, Halitosis, Hoarsness, Lip Swelling, Mouth Lesions, Mouth Pain, Odynophagia, Sore Throat, Throat Swelling, Tongue Swelling, Facial Pain, Neck Pain, Neck Mass, Other - Breasts Breasts: absent: As Per HPI, Change in Shape, Mass, Pain, Nipple Discharge, Nipple Inversion, Skin Changes, Swelling, Other - Cardiovascular Cardiovascular: absent: As Per HPI, Acrocyanosis, Chest Pain, Chest Pain at Rest , Chest Pain with Activity, Claudication, Diaphoresis, Dyspnea, Dyspnea on Exertion, Edema, Irregular Heart Rhythm, Pain Radiating to Arm/Neck/Jaw, Leg Edema, Leg Ulcers, Lightheadedness, Orthopnea, Palpitations, Paroxysmal Nocturnal Dyspnea, Pedal Edema, Radiating Pain, Rapid Heart Rate, Slow Heart Rate, Syncope, Other - Respiratory Respiratory: As Per HPI, Cough, Dyspnea. absent: Hemoptysis - Gastrointestinal Gastrointestinal: absent: As Per HPI, Abdominal Pain, Belching, Bloating, Change in Bowel Habits, Change in Stool Character, Coffee Ground Emesis, Constipation, Cramping, Diarrhea, Dyspepsia, Dysphagia, Early Satiety, Excessive Flatus, Fecal Incontinence, Heartburn, Hematemesis, Hematochezia, Loose Stools, Melena, Nausea, Odynophagia, Temesmus, Vomiting, Other - Genitourinary Genitourinary: absent: As Per HPI, Change in Urinary Stream, Difficulty Urinating, Dysuria, Flank Pain, Hematuria, Pyuria, Nocturia, Urinary Incontinence, Urinary Frequency, Urinary Hesitance, Urinary Urgency, Voiding Freq/Small Amts, Freq UTI, Hx Renal/Bladder Calculi, Hx /Renal Surgery, Bladder Distension, Other - Reproductive: Female Reproductive:Female: absent: As Per HPI, Amenorrhea, Amenorrhea/ Control, Currently Menstual, Cycle <21 Days, Cycle >35 Days, Cycle Variable, Menses 1-7 Days, Menses >/= 8 Days, Menses Variable, Cycle > 4 Weeks Between, No Menses for 6 Months, Heavy Menses, Light Menses, Normal Menses, Spotting Between Cycles , S/P Hysterectomy, Menopausal, Post Menopausal, Premenarche, Abnormal Vaginal Bleeding, Dysmenorrhea, Dyspareunia, Genital Lesions, Genital Pruritis, Pelvic Pain, Prolapse Symptoms, Sexual Dysfunction, Vaginal Discharge, Vaginal Dryness , Vaginal Odor, Vaginal Pruritis, Other - Menstruation Menstruation: absent: As Per HPI, Amenorrhea, Amenorrhea/ Control, Currently Menstual, Cycle <21 Days, Cycle >35 Days, Cycle Variable, Menses 1-7 Days, Menses >/= 8 Days, Menses Variable, Cycle > 4 Weeks Between, No Menses for 6 Months, Heavy Menses, Light Menses, Normal Menses, Spotting Between Cycles , S/P Hysterectomy, Menopausal, Post Menopausal, Premenarche, Abnormal Vaginal Bleeding, Dysmenorrhea, Other - Musculoskeletal Musculoskeletal: absent: As Per HPI, Abnormal Gait, Arthralgias, Atrophy, Back Pain, Deformity, Joint Swelling, Limited Range of Motion, Loss of Height, Muscle Cramps, Muscle Weakness, Myalgias, Neck Pain, Numbness, Radiating Pain into Limb, Stiffness, Tingling, Other - Integumentary Integumentary: absent: As Per HPI, Acne, Alopecia, Bleeding Lesions, Change in Hair, Change in Nails, Change in Pigmentation, Changing Lesions, Dry Skin, Erythema, Furuncle, Hirsutism, Lesions, New Lesions, Non-Healing Lesions, Photosensitivity, Pruritus, Rash, Skin Pain, Skin Ulcer, Sores, Striae, Swelling , Unusual Bruising, Wounds, Jaundice, Other - Neurological Neurological: absent: As Per HPI, Abnormal Gait, Abnormal Hearing, Abnormal Movements, Abnormal Speech, Behavioral Changes, Burning Sensations, Confusion, Convulsions, Disequilibrium, Dizziness, Numbness, Focal Weakness, Frequent Falls , Headaches, Lack of Coordination, Loss of Vision, Memory Loss, Paresthesias, Radicular Pain, Restless Legs, Sensory Deficit, Syncope, Tingling, Tremor, Vertigo, Weakness, Other Visual Disturbances, Other - Psychiatric Psychiatric: absent: As Per HPI, Abnormal Sleep Pattern, Anhedonia, Anxiety, Auditory Hallucinations, Behavioral Changes, Change in Appetite, Change in Libido, Confusion, Depression, Difficulty Concentrating, Hallucinations, Homicidal Ideation, Hopelessness, Irritability, Memory Loss, Mood Swings, Panic Attacks, Paranoia, Suicidal Ideation, Visual Hallucinations, Tactile Hallucinations, Other - Endocrine Endocrine: absent: As Per HPI, Change in Body Appearance, Change in Libido, Cold Intolorance, Deepening of Voice, Excessive Sweating, Fatigue, Flushing, Heat Intolorance, Increase in Ring/Shoe/Hat Size, Palpitations, Polydipsia, Polyphagia, Polyuria, Other - Hematologic/Lymphatic Hematologic: absent: As Per HPI, Easy Bleeding, Easy Bruising, Lymphadenopathy, Other Past Patient History - Infectious Disease Hx of Infectious Diseases: None - Past Medical History & Family History Past Medical History?: Yes - Past Social History Smoking Status: Never Smoked - PULMONARY Hx Asthma: Yes - MUSCULOSKELETAL/RHEUMATOLOGICAL Hx Falls: No - GASTROINTESTINAL Other/Comment: appendectomy/gall bladder remova/ - PSYCHIATRIC Hx Substance Use: No - SURGICAL HISTORY Hx Appendectomy: Yes Hx Cholecystectomy: Yes - ANESTHESIA Hx Anesthesia: Yes Hx Anesthesia Reactions: Yes (HEADACHE) Meds Allergies/Adverse Reactions: Allergies Allergy/AdvReac Type Severity Reaction Status Date / Time No Known Allergies Allergy Verified 04/27/17 07:26 - Medications Medications: Current Medications Albuterol/Ipratropium (Duoneb 3 Mg/0.5 Mg (3 Ml) Ud) 3 ml INH RQ4 [facility] Last Admin: 04/28/17 11:00 Dose: 3 ml Guaifenesin (Mucinex La) 600 mg PO BID [facility] Last Admin: 04/28/17 10:16 Dose: 600 mg Azithromycin 500 mg/ Sodium (Chloride) 250 mls @ 250 mls/hr IVPB DAILY [facility] Ketorolac Tromethamine (Toradol) 30 mg IVP Q6 PRN PRN Reason: moderate pain Last Admin: 04/28/17 08:49 Dose: 30 mg Loratadine (Claritin) 10 mg PO DAILY [facility] Last Admin: 04/28/17 10:15 Dose: 10 mg Methylprednisolone (Solu-Medrol) 60 mg IVP Q8H [facility] Last Admin: 04/28/17 10:21 Dose: 60 mg Montelukast Sodium (Singulair) 10 mg PO BID [facility] Last Admin: 04/28/17 10:18 Dose: 10 mg Pantoprazole Sodium (Protonix Ec Tab) 40 mg PO DAILY [facility] Last Admin: 04/28/17 10:17 Dose: 40 mg Promethazine HCl/Codeine (Phenergan/Codeine Oral Syrup) 5 ml PO Q4 PRN PRN Reason: cough Last Admin: 04/27/17 18:22 Dose: 5 ml Saccharomyces Boulardii (Florastor) 250 mg PO BID [facility] Last Admin: 04/28/17 10:16 Dose: 250 mg Physical Exam - Constitutional Appears: In Acute Distress - Head Exam Head Exam: ATRAUMATIC, NORMAL INSPECTION, NORMOCEPHALIC - Eye Exam Eye Exam: PERRL. absent: Scleral icterus - ENT Exam ENT Exam: Mucous Membranes Dry, Normal External Ear Exam, Normal Oropharynx - Neck Exam Neck exam: Negative for: Lymphadenopathy - Respiratory Exam Respiratory Exam: Decreased Breath Sounds, Prolonged Expiratory Phase, Rhonchi, Wheezes - Cardiovascular Exam Cardiovascular Exam: REGULAR RHYTHM, +S1, +S2 - GI/Abdominal Exam GI & Abdominal Exam: Diminished Bowel Sounds, Soft. absent: Tenderness - Rectal Exam Rectal Exam: Deferred - Exam Exam: NORMAL INSPECTION - Extremities Exam Extremities exam: Negative for: pedal edema - Back Exam Back exam: absent: CVA tenderness (L), CVA tenderness (R), paraspinal tenderness - Neurological Exam Neurological exam: Alert, CN II-XII Intact, Oriented x3, Reflexes Normal - Psychiatric Exam Psychiatric exam: Normal Mood - Skin Skin Exam: Dry Results - Vital Signs Recent Vital Signs: Last Vital Signs Temp 98 F 04/27/17 20:00 Pulse 136 H 04/28/17 10:40 Resp 19 04/28/17 08:00 BP 101/65 04/28/17 06:39 Pulse Ox 96 04/28/17 08:00 - Labs Result Diagrams: 04/28/17 06:24 04/28/17 06:24 Labs: Laboratory Results - last 24 hr 04/27/17 04/27/17 04/27/17 09:22 09:22 11:53 WBC RBC Hgb Hct MCV MCH MCHC RDW Plt Count MPV Neut % (Auto) Lymph % (Auto) [place] % (Auto) Eos % (Auto) Baso % (Auto) Neut # Lymph # [place] # Eos # Baso # Neutrophils % (Manual) Band Neutrophils % Lymphocytes % (Manual) Monocytes % (Manual) Platelet Estimate RBC Morphology Sodium Potassium Chloride Carbon Dioxide Anion Gap BUN Creatinine Est GFR ( Amer) Est GFR (Non-Af Amer) Random Glucose Calcium Phosphorus Magnesium Total Bilirubin AST ALT Alkaline Phosphatase Total Protein Albumin Globulin Albumin/Globulin Ratio Influenza Typ A,B (EIA) Negative for flu a/b H.influenzae Type B Ag Not required Ur L.pneumophila Ag Negative Mycoplasma pneumon IgM Positive H N.meningitidis [id number] Not required N.meningi B/E.coli K1 Ag Not required Group B Strep Antigen Not required S. pneumoniae Antigen Negative 04/27/17 04/28/17 04/28/17 15:56 06:24 06:24 WBC 14.2 H D RBC 4.53 Hgb 14.0 D Hct 42.2 MCV 93.2 MCH 31.0 MCHC 33.2 RDW 13.9 Plt Count 211 MPV 10.2 Neut % (Auto) 89.5 H Lymph % (Auto) 7.5 L [place] % (Auto) 2.9 Eos % (Auto) 0.0 Baso % (Auto) 0.1 Neut # 12.7 H Lymph # 1.1 [place] # 0.4 Eos # 0.0 Baso # 0.0 Neutrophils % (Manual) 82 H Band Neutrophils % 1 Lymphocytes % (Manual) 16 L Monocytes % (Manual) 1 Platelet Estimate Normal RBC Morphology Normal Sodium 139 137 Potassium 4.5 4.4 Chloride 106 102 Carbon Dioxide 16 L 19 L Anion Gap 22 H 20 BUN 8 12 Creatinine 0.7 0.6 L Est GFR ( Amer) > 60 > 60 Est GFR (Non-Af Amer) > 60 > 60 Random Glucose 173 H 134 H Calcium 8.5 L 9.5 Phosphorus 3.9 Magnesium 1.8 2.0 Total Bilirubin 0.2 AST 19 ALT 30 Alkaline Phosphatase 59 Total Protein 7.0 Albumin 3.8 Globulin 3.2 Albumin/Globulin Ratio 1.2 Influenza Typ A,B (EIA) H.influenzae Type B Ag Ur L.pneumophila Ag Mycoplasma pneumon IgM N.meningitidis [id number] N.meningi B/E.coli K1 Ag Group B Strep Antigen S. pneumoniae Antigen Assessment & Plan (1) Mycoplasma pneumoniae [M. pneumoniae] as the cause of diseases classified elsewhere Status: Acute (2) Mycoplasma pneumoniae [M. pneumoniae] as the cause of diseases classified elsewhere Status: Acute (3) Asthma Status: Acute - Assessment and Plan (Free Text) Assessment: severe acute mycoplasma pneumonia cont iv antibiotics , bronchodilators, steroids and cpap support may require intubation
[2017-04-28] MEDS: Azithromycin 500 MG in Sodium Chloride 0.9% 250 ML IVPB SCH (12:31)
--- NOTE | 2017-04-28 13:01 | CP.PCM.PN ---
Subjective - Date & Time of Evaluation Date of Evaluation: 04/28/17 Time of Evaluation: 13:00 - Subjective Subjective: Medical Attending Note: Patient seen, examined with family at bedside. Patient reports breathing is about the same. Reports headache. denies chest pain , denies palpitations, +shortness of breathe, denies abdominal pain, denies nausea, denies constipation. + facial congestion. Discussed with RT, Corbin, patient had an exacerbation a little bit earlier. Patient is currently on BiPAP. Patient understands if breathing does not improve may require intubation/breathing machine. Discussed with ICU, patient is stable compared to earliery witnessed exacerbation. ABG is improved. Patient to remain on telemetry. Objective - Vital Signs/Intake and Output Vital Signs (last 24 hours): Temp Pulse Resp BP Pulse Ox 98 F 136 H 19 101/65 96 04/27/17 20:00 04/28/17 10:40 04/28/17 08:00 04/28/17 06:39 04/28/17 08:00 Intake and Output: 04/28/17 04/28/17 06:59 18:59 Intake Total 200 Output Total 400 Balance -200 - Medications Medications: Current Medications Acetaminophen (Tylenol 325mg Tab) 650 mg PO Q6 PRN PRN Reason: Headache Albuterol/Ipratropium (Duoneb 3 Mg/0.5 Mg (3 Ml) Ud) 3 ml INH RQ4 [facility] Last Admin: 04/28/17 11:00 Dose: 3 ml Guaifenesin (Mucinex La) 600 mg PO BID [facility] Last Admin: 04/28/17 10:16 Dose: 600 mg Azithromycin 500 mg/ Sodium (Chloride) 250 mls @ 250 mls/hr IVPB DAILY [facility] Piperacillin Sod/Tazobactam (Sod 3.375 gm/ Sodium Chloride) 100 mls @ 200 mls/ hr IVPB Q8H [facility] Ketorolac Tromethamine (Toradol) 30 mg IVP Q6 PRN PRN Reason: moderate pain Last Admin: 04/28/17 08:49 Dose: 30 mg Loratadine (Claritin) 10 mg PO DAILY [facility] Last Admin: 04/28/17 10:15 Dose: 10 mg Methylprednisolone (Solu-Medrol) 60 mg IVP Q8H [facility] Last Admin: 04/28/17 10:21 Dose: 60 mg Montelukast Sodium (Singulair) 10 mg PO BID [facility] Last Admin: 04/28/17 10:18 Dose: 10 mg Pantoprazole Sodium (Protonix Ec Tab) 40 mg PO DAILY [facility] Last Admin: 04/28/17 10:17 Dose: 40 mg Promethazine HCl/Codeine (Phenergan/Codeine Oral Syrup) 5 ml PO Q4 PRN PRN Reason: cough Last Admin: 04/27/17 18:22 Dose: 5 ml Saccharomyces Boulardii (Florastor) 250 mg PO BID [facility] Last Admin: 04/28/17 10:16 Dose: 250 mg - Labs Labs: 04/28/17 06:24 04/28/17 06:24 - Constitutional Appears: In Acute Distress, Younger Than Stated Age - Head Exam Head Exam: NORMAL INSPECTION - Eye Exam Eye Exam: EOMI - Respiratory Exam Respiratory Exam: Decreased Breath Sounds, Wheezes, Respiratory Distress - Cardiovascular Exam Cardiovascular Exam: Tachycardia, +S1, +S2 - GI/Abdominal Exam GI & Abdominal Exam: Soft, Normal Bowel Sounds. absent: Distended, Firm, Guarding, Rigid, Tenderness, Rebound - Extremities Exam Extremities Exam: Normal Capillary Refill. absent: Pedal Edema, Tenderness - Neurological Exam Neurological Exam: Alert, Awake, Oriented x3 - Psychiatric Exam Psychiatric exam: Anxious, Normal Affect, Normal Mood - Skin Skin Exam: Dry, Intact, Normal Color, Warm Assessment and Plan - Assessment and Plan (Free Text) Assessment: Assessment/Plan 1) Acute Respiratory Distress secondary to Asthma exacerbation, Mycoplasma Pneumonia, Sinusitis * Admit to telemetry * Change to inpatient given patient has severe asthma exacerbation * Consult: Dr. Pineda (pulm) covering for Dr. 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 pneumoniae: negative, negative: legionella; negative influenza, group A beta Strep pending 2) Asthma exacerbation * severe persistent (day symptoms for past week requiring nebulizer) * Repeat ABG today 3) Mycoplasma Pneumonia * Infectious Disease: Dr. Bettencourt on board * Azithromycin 500mg IV Q daily * Zosyn 3.375 IV Q 8 hours * + Mycoplasma IgM 4) Severe Sinusitis * CT Sinus: entensive sinusitis * ENT eval * noninvasive soft tissue techniques to assist with lymphatic drainage 5) Prophylactic care * SCDS b/l * Protonix 40mg IV Q daily for GI ppx * OOB
[2017-04-28 13:11] LABS: ABG ALLEN TEST PO; ARTERIAL BLOOD GAS MODE BiPAP; DRAW SITE RRA
[2017-04-28] MEDS: Piperacillin/Tazobact 3.375 GM in Sodium Chloride 100 ML IVPB SCH ×2 (14:01→21:20)
--- NOTE | 2017-04-28 14:27 | CON ---
DATE: 04/28/2017 REFERRING PHYSICIAN: Dr. Reed. REASON FOR CONSULTATION: Possible sinusitis. HISTORY OF PRESENT ILLNESS: This is a 36-year-old female who for the past month and a half has been having nasal congestion and sinus pain; it is constant, moderate in intensity and on both sides. PAST MEDICAL HISTORY: As noted in the chart by me. MEDICATIONS: As noted in the chart by me. PHYSICAL EXAMINATION: HEAD: Atraumatic and normocephalic. FACE: Good facial movements bilaterally. CONSTITUTIONAL: Well developed, well nourished. COMMUNICATION: Communicates well and appropriately. EXTERNAL NOSE AND EARS: No masses. No lesions. No erythema. No edema. INTERNAL NOSE: Deviated septum. No masses. No lesions. No erythema. No edema. Large turbinates. ORAL CAVITY AND OROPHARYNX: No masses. No lesions. No erythema. No edema. LIPS AND GUMS: No masses. No lesions. No erythema. No edema. NECK: Supple. THYROID: No thyromegaly. No goiter. LYMPH NODES: No lymphadenopathy of the neck. LABORATORY DATA: CAT scan was reviewed by me and reveals pansinusitis. ASSESSMENT AND PLAN: 1. Sinusitis. 2. Deviated septum. 3. Large turbinates. I will recommend that the medication be changed for the sinuses to either Augmentin or Bactrim that the patient should be sent home with for 2 weeks. Jd Rivera MD
--- NOTE | 2017-04-28 18:20 | CP.PCM.PN ---
Subjective - Date & Time of Evaluation Date of Evaluation: 04/28/17 Time of Evaluation: 18:18 - Subjective Subjective: pt had episode of sob this am placed on bipap now doiing ok on bipap chest good air entry but wheezing noted labs noted for mycoplasma on zithromax ige Pending asthma exacerbation with status on bipap continue the current treatment Objective - Vital Signs/Intake and Output Vital Signs (last 24 hours): Temp Pulse Resp BP Pulse Ox 98 F 110 H 17 108/52 L 100 04/27/17 20:00 04/28/17 16:40 04/28/17 16:40 04/28/17 12:39 04/28/17 16:40 Intake and Output: 04/28/17 04/28/17 06:59 18:59 Intake Total 200 Output Total 400 Balance -200 - Medications Medications: Current Medications Acetaminophen (Tylenol 325mg Tab) 650 mg PO Q6 PRN PRN Reason: Headache Albuterol/Ipratropium (Duoneb 3 Mg/0.5 Mg (3 Ml) Ud) 3 ml INH RQ4 [facility] Last Admin: 04/28/17 15:51 Dose: 3 ml Guaifenesin (Mucinex La) 600 mg PO BID [facility] Last Admin: 04/28/17 10:16 Dose: 600 mg Azithromycin 500 mg/ Sodium (Chloride) 250 mls @ 250 mls/hr IVPB DAILY [facility] Last Admin: 04/28/17 12:31 Dose: 250 mls/hr Piperacillin Sod/Tazobactam (Sod 3.375 gm/ Sodium Chloride) 100 mls @ 200 mls/ hr IVPB Q8H [facility] Last Admin: 04/28/17 14:01 Dose: 200 mls/hr Ketorolac Tromethamine (Toradol) 30 mg IVP Q6 PRN PRN Reason: moderate pain Last Admin: 04/28/17 08:49 Dose: 30 mg Loratadine (Claritin) 10 mg PO DAILY [facility] Last Admin: 04/28/17 10:15 Dose: 10 mg Methylprednisolone (Solu-Medrol) 60 mg IVP Q8H [facility] Last Admin: 04/28/17 10:21 Dose: 60 mg Montelukast Sodium (Singulair) 10 mg PO BID [facility] Last Admin: 04/28/17 10:18 Dose: 10 mg Pantoprazole Sodium (Protonix Ec Tab) 40 mg PO DAILY [facility] Last Admin: 04/28/17 10:17 Dose: 40 mg Promethazine HCl/Codeine (Phenergan/Codeine Oral Syrup) 5 ml PO Q4 PRN PRN Reason: cough Last Admin: 04/27/17 18:22 Dose: 5 ml Saccharomyces Boulardii (Florastor) 250 mg PO BID [facility] Last Admin: 04/28/17 10:16 Dose: 250 mg - Labs Labs: 04/28/17 06:24 04/28/17 06:24
[2017-04-29] MEDS: Albuterol-Ipratrop 3 mg / 0.5 (3 ml) UD INH SCH ×6 (00:52→19:35)
[2017-04-29] MEDS: MethylPREDNISolone 40 mg Vial IVP SCH ×3 (03:00→18:34)
[2017-04-29] MEDS: Piperacillin/Tazobact 3.375 GM in Sodium Chloride 100 ML IVPB SCH ×3 (04:59→21:14)
[2017-04-29] MEDS: Pantoprazole 40 mg EC Tab PO SCH (10:51)
[2017-04-29] MEDS: guaiFENesin 600 mg ER Tab PO SCH ×2 (10:51→17:13)
[2017-04-29] MEDS: Saccharomyces Boulardi 250 mg Cap PO SCH ×2 (10:51→17:13)
[2017-04-29] MEDS: Azithromycin 500 MG in Sodium Chloride 0.9% 250 ML IVPB SCH (10:52)
--- NOTE | 2017-04-29 14:34 | CP.PCM.PN ---
Subjective - Date & Time of Evaluation Date of Evaluation: 04/29/17 Time of Evaluation: 07:00 - Subjective Subjective: iv rx in progress Objective - Vital Signs/Intake and Output Vital Signs (last 24 hours): Temp Pulse Resp BP Pulse Ox 98.6 F 95 H 14 122/78 96 04/28/17 20:00 04/29/17 06:00 04/29/17 06:00 04/29/17 04:39 04/29/17 06:00 Intake and Output: 04/29/17 04/29/17 06:59 18:59 Intake Total 400 Output Total 1500 Balance -1100 - Medications Medications: Current Medications Acetaminophen (Tylenol 325mg Tab) 650 mg PO Q6 PRN PRN Reason: Headache Last Admin: 04/29/17 11:57 Dose: 650 mg Albuterol/Ipratropium (Duoneb 3 Mg/0.5 Mg (3 Ml) Ud) 3 ml INH RQ4 [facility] Last Admin: 04/29/17 11:19 Dose: 3 ml Guaifenesin (Mucinex La) 600 mg PO BID [facility] Last Admin: 04/29/17 10:51 Dose: 600 mg Azithromycin 500 mg/ Sodium (Chloride) 250 mls @ 250 mls/hr IVPB DAILY [facility] Last Admin: 04/29/17 10:52 Dose: 250 mls/hr Piperacillin Sod/Tazobactam (Sod 3.375 gm/ Sodium Chloride) 100 mls @ 200 mls/ hr IVPB Q8H [facility] Last Admin: 04/29/17 13:47 Dose: 200 mls/hr Loratadine (Claritin) 10 mg PO DAILY [facility] Last Admin: 04/29/17 10:50 Dose: 10 mg Methylprednisolone (Solu-Medrol) 60 mg IVP Q8H [facility] Last Admin: 04/29/17 10:54 Dose: 60 mg Montelukast Sodium (Singulair) 10 mg PO BID [facility] Last Admin: 04/29/17 10:52 Dose: 10 mg Pantoprazole Sodium (Protonix Ec Tab) 40 mg PO DAILY [facility] Last Admin: 04/29/17 10:51 Dose: 40 mg Promethazine HCl/Codeine (Phenergan/Codeine Oral Syrup) 5 ml PO Q4 PRN PRN Reason: cough Last Admin: 04/27/17 18:22 Dose: 5 ml Saccharomyces Boulardii (Florastor) 250 mg PO BID [facility] Last Admin: 04/29/17 10:51 Dose: 250 mg - Labs Labs: 04/28/17 06:24 04/28/17 06:24 - Constitutional Appears: Non-toxic, Chronically Ill - Head Exam Head Exam: NORMOCEPHALIC - Eye Exam Eye Exam: PERRL - ENT Exam ENT Exam: Mucous Membranes Dry - Neck Exam Neck Exam: absent: Lymphadenopathy - Respiratory Exam Respiratory Exam: Decreased Breath Sounds - Cardiovascular Exam Cardiovascular Exam: REGULAR RHYTHM - GI/Abdominal Exam GI & Abdominal Exam: Distended, Soft - Rectal Exam Rectal Exam: Deferred - Exam Exam: NORMAL INSPECTION - Extremities Exam Extremities Exam: absent: Pedal Edema - Back Exam Back Exam: absent: CVA tenderness (L), CVA tenderness (R), paraspinal tenderness - Neurological Exam Neurological Exam: Alert, Awake, Oriented x3 Assessment and Plan (1) Mycoplasma pneumoniae [M. pneumoniae] as the cause of diseases classified elsewhere Status: Acute (2) Mycoplasma pneumoniae [M. pneumoniae] as the cause of diseases classified elsewhere Status: Acute (3) Asthma Status: Acute
--- NOTE | 2017-04-29 16:38 | CP.PCM.PN ---
<Kim Wetzel - Last Filed: 04/29/17 17:10> Subjective - Date & Time of Evaluation Date of Evaluation: 04/29/17 Time of Evaluation: 07:00 - Subjective Subjective: Internal Medicine Progress note for Dr. Terrazas Patient states she has a left sided frontal temporal headache today. She said both of her eyes had difficulty seeing in the morning, but has resolved. Patient states she was a little dizzy in the morning, but did not have any nausea, or vomiting. Patient denies, fever, chills, difficulty with vision at this time. Patient states she feels better than yesterday, but still has difficulty breathing Patient was on Bipap 07/08 FiO2 60% today Objective - Vital Signs/Intake and Output Vital Signs (last 24 hours): Temp Pulse Resp BP Pulse Ox 98.6 F 95 H 14 122/78 96 04/28/17 20:00 04/29/17 06:00 04/29/17 06:00 04/29/17 04:39 04/29/17 06:00 Intake and Output: 04/29/17 04/29/17 06:59 18:59 Intake Total 400 Output Total 1500 Balance -1100 - Medications Medications: Current Medications Acetaminophen (Tylenol 325mg Tab) 650 mg PO Q6 PRN PRN Reason: Headache Last Admin: 04/29/17 11:57 Dose: 650 mg Albuterol/Ipratropium (Duoneb 3 Mg/0.5 Mg (3 Ml) Ud) 3 ml INH RQ4 [facility] Last Admin: 04/29/17 16:03 Dose: 3 ml Guaifenesin (Mucinex La) 600 mg PO BID [facility] Last Admin: 04/29/17 10:51 Dose: 600 mg Azithromycin 500 mg/ Sodium (Chloride) 250 mls @ 250 mls/hr IVPB DAILY [facility] Last Admin: 04/29/17 10:52 Dose: 250 mls/hr Piperacillin Sod/Tazobactam (Sod 3.375 gm/ Sodium Chloride) 100 mls @ 200 mls/ hr IVPB Q8H [facility] Last Admin: 04/29/17 13:47 Dose: 200 mls/hr Loratadine (Claritin) 10 mg PO DAILY [facility] Last Admin: 04/29/17 10:50 Dose: 10 mg Methylprednisolone (Solu-Medrol) 60 mg IVP Q8H [facility] Last Admin: 04/29/17 10:54 Dose: 60 mg Montelukast Sodium (Singulair) 10 mg PO BID [facility] Last Admin: 04/29/17 10:52 Dose: 10 mg Pantoprazole Sodium (Protonix Ec Tab) 40 mg PO DAILY [facility] Last Admin: 04/29/17 10:51 Dose: 40 mg Promethazine HCl/Codeine (Phenergan/Codeine Oral Syrup) 5 ml PO Q4 PRN PRN Reason: cough Last Admin: 04/27/17 18:22 Dose: 5 ml Saccharomyces Boulardii (Florastor) 250 mg PO BID [facility] Last Admin: 04/29/17 10:51 Dose: 250 mg - Labs Labs: 04/28/17 06:24 04/28/17 06:24 - Constitutional Appears: Non-toxic - Head Exam Head Exam: NORMAL INSPECTION - Eye Exam Eye Exam: EOMI, Normal appearance - ENT Exam ENT Exam: Mucous Membranes Moist - Neck Exam Neck Exam: Full ROM - Respiratory Exam Respiratory Exam: Wheezes (inspiratory and expiratory wheezes). absent: Accessory Muscle Use, Respiratory Distress - Cardiovascular Exam Cardiovascular Exam: REGULAR RHYTHM. absent: Bradycardia, Tachycardia - GI/Abdominal Exam GI & Abdominal Exam: Soft. absent: Tenderness, Pulsatile Mass - Extremities Exam Extremities Exam: Full ROM, Normal Inspection. absent: Pedal Edema - Neurological Exam Neurological Exam: Alert, Awake, Oriented x3 - Psychiatric Exam Psychiatric exam: Normal Affect, Normal Mood - Skin Skin Exam: Dry, Normal Color, Pallor, Warm Assessment and Plan - Assessment and Plan (Free Text) Assessment: 36F presents with acute respiratory distress, secondary to asthma exacerbation, was found to have Mycoplasma pneumonia and sinusitis. 1) Acute Respiratory Distress secondary to Asthma exacerbation, Mycoplasma Pneumonia, Sinusitis * severe asthma exacerbation * Dr. Pineda (pulm consult) covering for Dr. Magdaleno * in ED, given Terbutaline 0.5mg subq, Solumedrol 125mg IVPX1, Magnesium Sulfate 1gram IV X2, Epinephrine 0.5mg subqX1 and 4 Albuterol nebulizer treatments on 04/27/17 * Per pulm, patient appears to have allergic component given eosinophilia * Start Claritin and ordered for serum IgE * Duonebs 3ml Inhaled Q 4hours * Solumedrol 60mg IV Q 8 hours * S. pneumoniae: negative, negative: legionella; negative influenza a/b, group A beta Strep pending 2) Asthma exacerbation * severe persistent (day symptoms for past week requiring nebulizer) * f/u ABG 3) Mycoplasma Pneumonia * Infectious Disease: Dr. Bettencourt on board - Zosyn 3.[address] Bettencourt * Azithromycin 500mg IV QD, per Dr. Terrazas * Zosyn 3.375 IV Q8 hours * positive serology for Mycoplasma IgM 4) Severe Sinusitis * CT Sinus: entensive sinusitis * ENT eval 04/28 recommend antibiotic change to augmentin/bactrim for two weeks at home * noninvasive soft tissue techniques to assist with lymphatic drainage 5) Prophylactic care * SCDS b/l * Protonix 40mg IV Q daily for GI ppx * OOB <Alba Terrazas V - Last Filed: 05/02/17 10:31> Objective - Vital Signs/Intake and Output Vital Signs (last 24 hours): Temp Pulse Resp BP Pulse Ox 97.6 F 84 20 123/82 97 05/02/17 09:21 05/02/17 09:21 05/02/17 09:21 05/02/17 09:21 05/02/17 09:21 Intake and Output: 05/02/17 05/02/17 06:59 18:59 Intake Total 600 Balance 600 - Medications Medications: Current Medications Acetaminophen (Tylenol 325mg Tab) 650 mg PO Q6 PRN PRN Reason: Headache Last Admin: 04/29/17 11:57 Dose: 650 mg Albuterol/Ipratropium (Duoneb 3 Mg/0.5 Mg (3 Ml) Ud) 3 ml INH RQ4 [facility] Last Admin: 05/02/17 03:24 Dose: Not Given Albuterol/Ipratropium (Duoneb 3 Mg/0.5 Mg (3 Ml) Ud) 3 ml INH ONCE ONE Stop: 05/02/17 10:31 Guaifenesin (Mucinex La) 600 mg PO BID [facility] Last Admin: 05/01/17 17:52 Dose: 600 mg Azithromycin 500 mg/ Sodium (Chloride) 250 mls @ 250 mls/hr IVPB DAILY [facility] Last Admin: 05/01/17 11:18 Dose: 250 mls/hr Piperacillin Sod/Tazobactam (Sod 3.375 gm/ Sodium Chloride) 100 mls @ 200 mls/ hr IVPB Q8H [facility] Last Admin: 05/02/17 05:01 Dose: 200 mls/hr Loratadine (Claritin) 10 mg PO DAILY [facility] Last Admin: 05/01/17 11:18 Dose: 10 mg Methylprednisolone (Solu-Medrol) 40 mg IVP Q12 [facility] Last Admin: 05/01/17 22:45 Dose: Not Given Montelukast Sodium (Singulair) 10 mg PO BID [facility] Last Admin: 05/01/17 17:52 Dose: 10 mg Pantoprazole Sodium (Protonix Ec Tab) 40 mg PO DAILY [facility] Last Admin: 05/01/17 11:18 Dose: 40 mg Promethazine HCl/Codeine (Phenergan/Codeine Oral Syrup) 5 ml PO Q4 PRN PRN Reason: cough Last Admin: 05/01/17 11:20 Dose: 5 ml Saccharomyces Boulardii (Florastor) 250 mg PO BID [facility] Last Admin: 05/01/17 17:52 Dose: 250 mg - Labs Labs: 04/30/17 06:19 04/30/17 06:19 Attending/Attestation - Attestation I have personally seen and examined this patient.: Yes I have fully participated in the care of the patient.: Yes I have reviewed all pertinent clinical information, including history, physical exam and plan: Yes Notes (Text): This is late computer entry for 04/29/17. Patient seen, examined and case discussed with day-time resident. Patient is in the ICU stepdown awaiting for telemetry bed. Patient feels short of breathe but starting to feel a little bit better. Will continue patient on Solumedrol 60mg IV Q 8hours. Patient is getting non-invasive soft tissue techniques to help relieve congestion over the sinuses and facilitate breathing given she has severe asthma. Patient is currently on IV abx to covering for both Mycoplasma Pneumonia and severe sinusitis. Assessment/Plan 1) Acute Respiratory Distress secondary to Asthma exacerbation, Mycoplasma Pneumonia, Sinusitis * Admit to telemetry * Change to inpatient given patient has severe asthma exacerbation * Consult: Dr. Pineda (pulm) covering for Dr. 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 pneumoniae: negative, negative: legionella; negative influenza, Sputum: normal oral porsha * Promethazine w codeine 5ml PO Q 4hour PRN cough * Mucinex 600mg PO BID 2) Asthma exacerbation * severe persistent (day symptoms for past week requiring nebulizer) * ABG (04/28/17): oxygen well, not acidotic, not in CO2 retenion * Bipap PRN * Continue IV steroids 3) Mycoplasma Pneumonia * Infectious Disease: Dr. Bettencourt on board * Azithromycin 500mg IV Q daily (active since 04/28/17) * Zosyn 3.375 IV Q 8 hours (active since 04/28/17) * + Mycoplasma IgM * Promethazine w codeine 5ml PO Q 4hour PRN cough * Mucinex 600mg PO BID 4) Severe Sinusitis * CT Sinus (04/27/17): moderate mucosal thickening/inspissated mucus. left maxillary retention cyst. Moderate to entensive mucosal thickening/inspissated mucous in sphenoid sinues. Frontal sinuses: Moderate mucosal thickening/ inspissated mucus/mild fluid. Near complete opacification/inspissated mucoous. Mucosal thickening in nasal cavit * noninvasive soft tissue techniques to assist with lymphatic drainage daily--> patient permits and reports she is feeling better * Promethazine w codeine 5ml PO Q 4hour PRN cough * Mucinex 600mg PO BID 5) Prophylactic care * SCDS b/l * Protonix 40mg IV Q daily for GI ppx * OOB
[2017-04-29 17:08] LABS: BASO % 0.1 % (0.0-2.0); LYMPH # 1.2 K/uL (1.0-4.3); MEAN CELL VOLUME 92.9 fL (81.0-99.0); MEAN CORPUSCULAR HEMOGLOBIN 31.4 pg (27.0-31.0); MEAN CORPUSCULAR HGB CONC 33.7 g/dL (33.0-37.0); MEAN PLATELET VOLUME 9.4 fL (7.2-11.7); MONO # 0.7 K/uL (0.0-0.8); MONO % 4.7 % (0.0-10.0); PLATELET COUNT 197 K/uL (130-400); RED CELL DISTRIBUTION WIDTH 13.8 % (11.5-14.5); WHITE BLOOD COUNT 15.5 K/uL (4.8-10.8)
[2017-04-29 17:14] LABS: CHLORIDE 99 mmol/L (98-107)
[2017-04-29 17:15] LABS: POTASSIUM 4.3 mmol/L (3.6-5.2); SODIUM 138 mmol/L (132-148)
[2017-04-29 17:17] LABS: BILIRUBIN,TOTAL 0.3 mg/dL (0.2-1.3); GFR AFRICAN-AMERICAN > 60
[2017-04-29 17:18] LABS: ALB/GLOB RATIO 1.3 (1.0-2.1); ALKALINE PHOSPHATASE 45 U/L (38-126); ALT/SGPT 32 U/L (9-52); AST/SGOT 18 U/L (14-36); BLOOD UREA NITROGEN 16 mg/dL (7-17); CARBON DIOXIDE 23 mmol/L (22-30); GLUCOSE,RANDOM 141 mg/dL (65-105); TOTAL PROTEIN 6.9 g/dL (6.3-8.3)
[2017-04-29 23:23] LABS: LARGE PLATELETS PRESENT; NEUTROPHIL 84 % (50-75); SMUDGE CELLS PRESENT; TOTAL CELLS COUNTED 100
[2017-04-30] MEDS: Albuterol-Ipratrop 3 mg / 0.5 (3 ml) UD INH SCH ×7 (00:39→23:36)
[2017-04-30] MEDS: MethylPREDNISolone 40 mg Vial IVP SCH ×2 (03:12→19:20)
[2017-04-30] MEDS: Piperacillin/Tazobact 3.375 GM in Sodium Chloride 100 ML IVPB SCH ×3 (05:04→22:17)
[2017-04-30 06:28] LABS: HEMATOCRIT 40.5 % (34.0-47.0); LYMPH # 1.2 K/uL (1.0-4.3); LYMPH % 9.5 % (20.0-40.0); MEAN CELL VOLUME 94.2 fL (81.0-99.0); MEAN CORPUSCULAR HEMOGLOBIN 31.6 pg (27.0-31.0); MEAN CORPUSCULAR HGB CONC 33.6 g/dL (33.0-37.0); MEAN PLATELET VOLUME 10.2 fL (7.2-11.7); MONO # 0.7 K/uL (0.0-0.8); MONO % 5.6 % (0.0-10.0); PLATELET COUNT 190 K/uL (130-400); RED CELL DISTRIBUTION WIDTH 13.6 % (11.5-14.5); WHITE BLOOD COUNT 12.1 K/uL (4.8-10.8)
[2017-04-30 06:35] LABS: CHLORIDE 100 mmol/L (98-107)
[2017-04-30 06:36] LABS: POTASSIUM 4.4 mmol/L (3.6-5.2); SODIUM 139 mmol/L (132-148)
[2017-04-30 06:38] LABS: BILIRUBIN,TOTAL 0.3 mg/dL (0.2-1.3); CARBON DIOXIDE 23 mmol/L (22-30); GFR AFRICAN-AMERICAN > 60
[2017-04-30 06:39] LABS: ALB/GLOB RATIO 1.2 (1.0-2.1); ALKALINE PHOSPHATASE 56 U/L (38-126); ALT/SGPT 31 U/L (9-52); AST/SGOT 19 U/L (14-36); BLOOD UREA NITROGEN 15 mg/dL (7-17); CALCIUM 8.9 mg/dl (8.6-10.4); GLUCOSE,RANDOM 125 mg/dL (65-105); TOTAL PROTEIN 6.8 g/dL (6.3-8.3)
[2017-04-30 08:21] LABS: NEUTROPHIL 78 % (50-75); NUCLEATED RED BLOOD CELL 1 % (0-0); TOTAL CELLS COUNTED 100
[2017-04-30] MEDS ORDERED: Pneumococcal 23-Valent Vaccine IM ONE (10:00)
[2017-04-30] MEDS ORDERED: Influenza Virus Vaccine (Afluria Inactive dont use ) IM ONE (10:00)
[2017-04-30] MEDS ORDERED: MethylPREDNISolone 40 mg Vial IVP SCH (10:15)
[2017-04-30] MEDS: guaiFENesin 600 mg ER Tab PO SCH ×2 (10:39→18:32)
[2017-04-30] MEDS: Pantoprazole 40 mg EC Tab PO SCH (10:39)
[2017-04-30] MEDS: Azithromycin 500 MG in Sodium Chloride 0.9% 250 ML IVPB SCH (10:40)
[2017-04-30] MEDS: Saccharomyces Boulardi 250 mg Cap PO SCH ×2 (11:04→18:32)
--- NOTE | 2017-04-30 14:18 | CP.PCM.PN ---
<Kim Wetzel - Last Filed: 04/30/17 14:28> Subjective - Date & Time of Evaluation Date of Evaluation: 04/30/17 Time of Evaluation: 14:16 - Subjective Subjective: Internal Medicine Progress note for Dr. Terrazas Patient states that she feels a little better today. Patient states that facial effleurage that was done yesterday helped with drainage. Patient states marked improvement with headache. Patient states she started doing facial effleurage herself because it helps with the sinus drainage. Patient currently denies headaches, fever, chills, difficulty with vision at this time. Patient states she feels better than yesterday, but still has difficulty breathing. Patient admits to pain on right side when she breathes in. Patient admitted to one bowel movement today. Objective - Vital Signs/Intake and Output Vital Signs (last 24 hours): Temp Pulse Resp BP Pulse Ox 98.0 F 103 H 21 130/72 96 04/30/17 08:00 04/30/17 10:39 04/30/17 10:39 04/30/17 10:39 04/30/17 10:39 Intake and Output: 04/30/17 04/30/17 06:59 18:59 Intake Total 400 Output Total 150 Balance 250 - Medications Medications: Current Medications Acetaminophen (Tylenol 325mg Tab) 650 mg PO Q6 PRN PRN Reason: Headache Last Admin: 04/29/17 11:57 Dose: 650 mg Albuterol/Ipratropium (Duoneb 3 Mg/0.5 Mg (3 Ml) Ud) 3 ml INH RQ4 [facility] Last Admin: 04/30/17 12:42 Dose: 3 ml Guaifenesin (Mucinex La) 600 mg PO BID [facility] Last Admin: 04/30/17 10:39 Dose: 600 mg Azithromycin 500 mg/ Sodium (Chloride) 250 mls @ 250 mls/hr IVPB DAILY [facility] Last Admin: 04/30/17 10:40 Dose: 250 mls/hr Piperacillin Sod/Tazobactam (Sod 3.375 gm/ Sodium Chloride) 100 mls @ 200 mls/ hr IVPB Q8H [facility] Last Admin: 04/30/17 14:11 Dose: 200 mls/hr Ketorolac Tromethamine (Toradol) 30 mg IVP Q6H PRN PRN Reason: Pain, moderate (4-7) Stop: 05/02/17 10:26 Loratadine (Claritin) 10 mg PO DAILY [facility] Last Admin: 04/30/17 10:39 Dose: 10 mg Methylprednisolone (Solu-Medrol) 40 mg IVP Q12H [facility] Last Admin: 04/30/17 10:39 Dose: 40 mg Montelukast Sodium (Singulair) 10 mg PO BID [facility] Last Admin: 04/30/17 10:39 Dose: 10 mg Pantoprazole Sodium (Protonix Ec Tab) 40 mg PO DAILY [facility] Last Admin: 04/30/17 10:39 Dose: 40 mg Promethazine HCl/Codeine (Phenergan/Codeine Oral Syrup) 5 ml PO Q4 PRN PRN Reason: cough Last Admin: 04/27/17 18:22 Dose: 5 ml Saccharomyces Boulardii (Florastor) 250 mg PO BID [facility] Last Admin: 04/30/17 11:04 Dose: 250 mg - Labs Labs: 04/30/17 06:19 04/30/17 06:19 - Constitutional Appears: No Acute Distress - Head Exam Head Exam: NORMAL INSPECTION - Eye Exam Eye Exam: EOMI, Normal appearance - ENT Exam ENT Exam: Mucous Membranes Moist - Neck Exam Neck Exam: Full ROM - Respiratory Exam Respiratory Exam: NORMAL BREATHING PATTERN. absent: Accessory Muscle Use, Respiratory Distress Additional comments: patient is on nasal cannula at time of visit. - Cardiovascular Exam Cardiovascular Exam: Tachycardia, REGULAR RHYTHM, +S1, +S2 - GI/Abdominal Exam GI & Abdominal Exam: Soft, Normal Bowel Sounds. absent: Tenderness - Extremities Exam Extremities Exam: Full ROM, Normal Inspection. absent: Pedal Edema - Neurological Exam Neurological Exam: Alert, Awake, Normal Gait - Psychiatric Exam Psychiatric exam: Normal Affect, Normal Mood - Skin Skin Exam: Dry, Intact, Normal Color, Warm Assessment and Plan - Assessment and Plan (Free Text) Assessment: 04/28 CXR: mild venous congestion, right hilar prominence, patchy increased markings at bilateral lung bases 04/27 CT sinuses: mucosal thickening, left maxilary retention cyst, sphenoid sinuses have moderate to extensive mucosal thickeinging/inspisaated mucous. frontal sinuses ahave mucosal thickening, ethmoid air cells have near complete opacification/inspissated mucous, nasal cavity/septum have mucosal thickening, 04/27 CXR: mild venous congestion, mild patchy markings at the lung bases Solumedrol changed from 60mg Q8H to 40mg Q12 f/u with ID recommendations on when patient can switch to PO medications for treatment of infection 36F presents with acute respiratory distress, secondary to asthma exacerbation, was found to have Mycoplasma pneumonia and sinusitis. 1) Acute Respiratory Distress secondary to Asthma exacerbation, Mycoplasma Pneumonia, Sinusitis * severe asthma exacerbation * 04/27 treatment in ED * Terbutaline 0.5mg SQ, Solumedrol 125mg IVP Q once, Magnesium Sulfate 1gram IV Qtwice, Epinephrine 0.5mg SQ Q once, and 4 Albuterol nebulizer treatments * Pulmonary Consult: Dr. Pineda covering for Dr. Magdaleno * patient has eosinophilia, consider allergic component, serum IgE ordered. * 04/29 IgE 590 * Patient placed on Claritin. * Duoneb 3ml Inhaled Q4H * Solumedrol 60mg IV Q8H decreased to Solumedrol 40mg IVQ12H 04/30, will follow respiratory therapy notes * S. pneumoniae: negative * Legionella ab negative * Influenza a/b negative * Group A beta Strep pending 2) Asthma exacerbation * severe persistent (day symptoms for past week requiring nebulizer) * f/u ABGs 3) Mycoplasma Pneumonia (Atypical Pneumonia) * Infectious Disease: Dr. Bettencourt on board - Zosyn 3.[address] Bettencourt * Azithromycin 500mg IV QD, per Dr. Terrazas * Zosyn 3.375 IV Q8 hours * Mycoplasma IgM positive 4) Severe Sinusitis * ENT Consult 04/28 recommend antibiotic change to augmentin/bactrim for two weeks at home * noninvasive soft tissue techniques to assist with lymphatic drainage of sinuses, patient tolerated procedure well. Patient states her headaches have been minimal since treatment (Facial effleurage/soft tissue techniques for lymphatic drainage done on 04/28, 04/29, 04/30). Patient encouraged to try treatments herself to aid in lymphatic drainage. 5) Prophylaxis * SCDs bilaterally * Protonix 40mg IVP QD * encouraged to get OOB <Alba Terrazas V - Last Filed: 05/02/17 10:37> Objective - Vital Signs/Intake and Output Vital Signs (last 24 hours): Temp Pulse Resp BP Pulse Ox 97.6 F 84 20 123/82 97 05/02/17 09:21 05/02/17 09:21 05/02/17 09:21 05/02/17 09:21 05/02/17 09:21 Intake and Output: 05/02/17 05/02/17 06:59 18:59 Intake Total 600 Balance 600 - Medications Medications: Current Medications Acetaminophen (Tylenol 325mg Tab) 650 mg PO Q6 PRN PRN Reason: Headache Last Admin: 04/29/17 11:57 Dose: 650 mg Albuterol/Ipratropium (Duoneb 3 Mg/0.5 Mg (3 Ml) Ud) 3 ml INH RQ4 [facility] Last Admin: 05/02/17 03:24 Dose: Not Given Guaifenesin (Mucinex La) 600 mg PO BID [facility] Last Admin: 05/01/17 17:52 Dose: 600 mg Azithromycin 500 mg/ Sodium (Chloride) 250 mls @ 250 mls/hr IVPB DAILY [facility] Last Admin: 05/01/17 11:18 Dose: 250 mls/hr Piperacillin Sod/Tazobactam (Sod 3.375 gm/ Sodium Chloride) 100 mls @ 200 mls/ hr IVPB Q8H [facility] Last Admin: 05/02/17 05:01 Dose: 200 mls/hr Loratadine (Claritin) 10 mg PO DAILY [facility] Last Admin: 05/01/17 11:18 Dose: 10 mg Methylprednisolone (Solu-Medrol) 40 mg IVP Q12 [facility] Last Admin: 05/01/17 22:45 Dose: Not Given Montelukast Sodium (Singulair) 10 mg PO BID [facility] Last Admin: 05/01/17 17:52 Dose: 10 mg Pantoprazole Sodium (Protonix Ec Tab) 40 mg PO DAILY [facility] Last Admin: 05/01/17 11:18 Dose: 40 mg Promethazine HCl/Codeine (Phenergan/Codeine Oral Syrup) 5 ml PO Q4 PRN PRN Reason: cough Last Admin: 05/01/17 11:20 Dose: 5 ml Saccharomyces Boulardii (Florastor) 250 mg PO BID [facility] Last Admin: 05/01/17 17:52 Dose: 250 mg - Labs Labs: 04/30/17 06:19 04/30/17 06:19 Attending/Attestation - Attestation I have personally seen and examined this patient.: Yes I have fully participated in the care of the patient.: Yes I have reviewed all pertinent clinical information, including history, physical exam and plan: Yes Notes (Text): This is late computer entry for 04/30/17. Patient seen, examined and case discussed with day-time resident. Patient seen in ICU awaiting for telemetry. Patient reports soft tissue noninvasive techniques to help relieve sinus congestion are helping and she feels likes congestion. Patient's breathing started to improve compared to yesterday. Attempted to taper IV steroid. However, in the evening when patient was transferred out from the ICU to [address] [place] [address]. Patient appears to be in acute exacerbation. I spoke with patient with at bedside. Patient placed on Bipap. Patient was placed in new room next to air vent. I spoke with patient's charge nurse Sydnee to please change patient's room given that patient was moved to new room next to air vent which will only irritate her lungs more. Patient ordered for additional Solumedrol IV dose and increase IV Solumedrol to 60mg IV Q8H and stat Duoneb treatment. Endorsed to short call resident to ask the night time resident, Dr Summers to re-evaluate patient overnight. Assessment/Plan 1) Acute Respiratory Distress secondary to Asthma exacerbation, Mycoplasma Pneumonia, Sinusitis * Admit to telemetry * Change to inpatient given patient has severe asthma exacerbation * Consult: Dr. Pineda (pulm) covering for Dr. 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 pneumoniae: negative, negative: legionella; negative influenza, Sputum: normal oral porsha * Promethazine w codeine 5ml PO Q 4hour PRN cough * Mucinex 600mg PO BID 2) Asthma exacerbation * severe persistent (day symptoms for past week requiring nebulizer) * ABG (04/28/17): oxygen well, not acidotic, not in CO2 retenion * Bipap PRN * Start Solumedrol 60mg IV Q 8H * Start Duonebs 3ml INH RQ4H 3) Mycoplasma Pneumonia * Infectious Disease: Dr. Bettencourt on board * Azithromycin 500mg IV Q daily (active since 04/28/17) * Zosyn 3.375 IV Q 8 hours (active since 04/28/17) * + Mycoplasma IgM * Promethazine w codeine 5ml PO Q 4hour PRN cough * Mucinex 600mg PO BID 4) Severe Sinusitis * CT Sinus (04/27/17): moderate mucosal thickening/inspissated mucus. left maxillary retention cyst. Moderate to entensive mucosal thickening/inspissated mucous in sphenoid sinues. Frontal sinuses: Moderate mucosal thickening/ inspissated mucus/mild fluid. Near complete opacification/inspissated mucoous. Mucosal thickening in nasal cavit * noninvasive soft tissue techniques to assist with lymphatic drainage daily--> patient permits and reports she is feeling better * Promethazine w codeine 5ml PO Q 4hour PRN cough * Mucinex 600mg PO BID 5) Prophylactic care * SCDS b/l * Protonix 40mg IV Q daily for GI ppx * OOB
[2017-04-30] MEDS ORDERED: Albuterol-Ipratrop 3 mg / 0.5 (3 ml) UD INH STA (18:52)
[2017-04-30] MEDS ORDERED: DiphenhydrAMINE 50 mg/ml Inj IVP STA (23:56)
[2017-05-01] MEDS: Albuterol-Ipratrop 3 mg / 0.5 (3 ml) UD INH SCH ×6 (03:00→23:58)
[2017-05-01] MEDS: MethylPREDNISolone 40 mg Vial IVP SCH ×3 (03:42→22:45)
[2017-05-01] MEDS: Piperacillin/Tazobact 3.375 GM in Sodium Chloride 100 ML IVPB SCH ×3 (06:29→21:12)
[2017-05-01] MEDS: Azithromycin 500 MG in Sodium Chloride 0.9% 250 ML IVPB SCH (11:18)
[2017-05-01] MEDS: Pantoprazole 40 mg EC Tab PO SCH (11:18)
[2017-05-01] MEDS: guaiFENesin 600 mg ER Tab PO SCH ×2 (11:18→17:52)
[2017-05-01] MEDS: Saccharomyces Boulardi 250 mg Cap PO SCH ×2 (11:19→17:52)
[2017-05-01] MEDS: Promethazine/Cod 6.25mg-10mg/5ml Syr UD PO PRN (11:20)
--- NOTE | 2017-05-01 14:10 | CP.PCM.PN ---
Subjective - Date & Time of Evaluation Date of Evaluation: 05/01/17 Time of Evaluation: 08:00 - Subjective Subjective: feels a little better today. Patient states that facial effleurage that was done yesterday helped with drainage Objective - Vital Signs/Intake and Output Vital Signs (last 24 hours): Temp Pulse Resp BP Pulse Ox 98.2 F 98 H 20 131/82 99 05/01/17 08:15 05/01/17 08:15 05/01/17 08:15 05/01/17 08:15 05/01/17 08:18 Intake and Output: 05/01/17 05/01/17 06:59 18:59 Intake Total 340 Balance 340 - Medications Medications: Current Medications Acetaminophen (Tylenol 325mg Tab) 650 mg PO Q6 PRN PRN Reason: Headache Last Admin: 04/29/17 11:57 Dose: 650 mg Albuterol/Ipratropium (Duoneb 3 Mg/0.5 Mg (3 Ml) Ud) 3 ml INH RQ4 [facility] Last Admin: 05/01/17 11:28 Dose: 3 ml Guaifenesin (Mucinex La) 600 mg PO BID [facility] Last Admin: 05/01/17 11:18 Dose: 600 mg Azithromycin 500 mg/ Sodium (Chloride) 250 mls @ 250 mls/hr IVPB DAILY [facility] Last Admin: 05/01/17 11:18 Dose: 250 mls/hr Piperacillin Sod/Tazobactam (Sod 3.375 gm/ Sodium Chloride) 100 mls @ 200 mls/ hr IVPB Q8H [facility] Last Admin: 05/01/17 12:46 Dose: 200 mls/hr Ketorolac Tromethamine (Toradol) 30 mg IVP Q6H PRN PRN Reason: Pain, moderate (4-7) Stop: 05/02/17 10:26 Last Admin: 04/30/17 16:49 Dose: 30 mg Loratadine (Claritin) 10 mg PO DAILY [facility] Last Admin: 05/01/17 11:18 Dose: 10 mg Methylprednisolone (Solu-Medrol) 60 mg IVP Q12 [facility] Montelukast Sodium (Singulair) 10 mg PO BID [facility] Last Admin: 05/01/17 11:18 Dose: 10 mg Pantoprazole Sodium (Protonix Ec Tab) 40 mg PO DAILY [facility] Last Admin: 05/01/17 11:18 Dose: 40 mg Promethazine HCl/Codeine (Phenergan/Codeine Oral Syrup) 5 ml PO Q4 PRN PRN Reason: cough Last Admin: 05/01/17 11:20 Dose: 5 ml Saccharomyces Boulardii (Florastor) 250 mg PO BID [facility] Last Admin: 05/01/17 11:19 Dose: Not Given - Labs Labs: 04/30/17 06:19 04/30/17 06:19 - Constitutional Appears: Non-toxic, Chronically Ill - Head Exam Head Exam: NORMOCEPHALIC - Eye Exam Eye Exam: PERRL. absent: Scleral icterus - ENT Exam ENT Exam: Mucous Membranes Dry - Neck Exam Neck Exam: absent: Lymphadenopathy - Respiratory Exam Respiratory Exam: Decreased Breath Sounds - Cardiovascular Exam Cardiovascular Exam: REGULAR RHYTHM - GI/Abdominal Exam GI & Abdominal Exam: Distended, Soft - Rectal Exam Rectal Exam: Deferred - Exam Exam: NORMAL INSPECTION Assessment and Plan (1) Mycoplasma pneumoniae [M. pneumoniae] as the cause of diseases classified elsewhere Status: Acute (2) Mycoplasma pneumoniae [M. pneumoniae] as the cause of diseases classified elsewhere Status: Acute (3) Asthma Status: Acute
--- NOTE | 2017-05-01 18:07 | CP.PCM.PN ---
<Kim Wetzel - Last Filed: 05/01/17 18:10> Subjective - Date & Time of Evaluation Date of Evaluation: 05/01/17 Time of Evaluation: 18:04 - Subjective Subjective: Internal Medicine Progress Note for Dr. Terrazas Patient seen and examined at bedside. Patient transferred from ICU floor/ telemetry to the med surg floor. Patient states she's feeling much better, but still has pain on her side from inspiration. Patient denies fever, chills, nausea, difficulties urinating, diarrhea. Patient states that she's having excretions from her nose. It was explained to the patient that it was normal from sinus drainage techniques that were being done. Patient worried about why she's getting infections and what will happen in the future. Spoke with patient on how to prevent infections from escalating and to follow up with clinic earlier for further evaluation in the future. Patient did not tolerate the decrease in solumedrol yesterday, will try again today. Objective - Vital Signs/Intake and Output Vital Signs (last 24 hours): Temp Pulse Resp BP Pulse Ox 98.2 F 98 H 20 130/87 82 L 05/01/17 08:15 05/01/17 08:15 05/01/17 08:15 05/01/17 16:56 05/01/17 16:56 Intake and Output: 05/01/17 05/01/17 06:59 18:59 Intake Total 340 Balance 340 - Medications Medications: Current Medications Acetaminophen (Tylenol 325mg Tab) 650 mg PO Q6 PRN PRN Reason: Headache Last Admin: 04/29/17 11:57 Dose: 650 mg Albuterol/Ipratropium (Duoneb 3 Mg/0.5 Mg (3 Ml) Ud) 3 ml INH RQ4 [facility] Last Admin: 05/01/17 16:54 Dose: 3 ml Guaifenesin (Mucinex La) 600 mg PO BID [facility] Last Admin: 05/01/17 17:52 Dose: 600 mg Azithromycin 500 mg/ Sodium (Chloride) 250 mls @ 250 mls/hr IVPB DAILY [facility] Last Admin: 05/01/17 11:18 Dose: 250 mls/hr Piperacillin Sod/Tazobactam (Sod 3.375 gm/ Sodium Chloride) 100 mls @ 200 mls/ hr IVPB Q8H [facility] Last Admin: 05/01/17 12:46 Dose: 200 mls/hr Ketorolac Tromethamine (Toradol) 30 mg IVP Q6H PRN PRN Reason: Pain, moderate (4-7) Stop: 05/02/17 10:26 Last Admin: 04/30/17 16:49 Dose: 30 mg Loratadine (Claritin) 10 mg PO DAILY [facility] Last Admin: 05/01/17 11:18 Dose: 10 mg Methylprednisolone (Solu-Medrol) 60 mg IVP Q12 [facility] Montelukast Sodium (Singulair) 10 mg PO BID [facility] Last Admin: 05/01/17 17:52 Dose: 10 mg Pantoprazole Sodium (Protonix Ec Tab) 40 mg PO DAILY [facility] Last Admin: 05/01/17 11:18 Dose: 40 mg Promethazine HCl/Codeine (Phenergan/Codeine Oral Syrup) 5 ml PO Q4 PRN PRN Reason: cough Last Admin: 05/01/17 11:20 Dose: 5 ml Saccharomyces Boulardii (Florastor) 250 mg PO BID [facility] Last Admin: 05/01/17 17:52 Dose: 250 mg - Labs Labs: 04/30/17 06:19 04/30/17 06:19 - Constitutional Appears: Non-toxic - Head Exam Head Exam: NORMAL INSPECTION - Eye Exam Eye Exam: EOMI, Normal appearance - ENT Exam ENT Exam: Mucous Membranes Moist - Neck Exam Neck Exam: Full ROM - Respiratory Exam Respiratory Exam: Decreased Breath Sounds, NORMAL BREATHING PATTERN. absent: Accessory Muscle Use, Rhonchi, Respiratory Distress - Cardiovascular Exam Cardiovascular Exam: REGULAR RHYTHM, +S1, +S2 - GI/Abdominal Exam GI & Abdominal Exam: Soft. absent: Tenderness - Extremities Exam Extremities Exam: Full ROM. absent: Pedal Edema - Neurological Exam Neurological Exam: Alert, Awake, Oriented x3 - Psychiatric Exam Psychiatric exam: Normal Affect, Normal Mood - Skin Skin Exam: Dry, Intact, Normal Color, Warm Assessment and Plan - Assessment and Plan (Free Text) Assessment: Assessment: 04/28 CXR: mild venous congestion, right hilar prominence, patchy increased markings at bilateral lung bases 04/27 CT sinuses: mucosal thickening, left maxilary retention cyst, sphenoid sinuses have moderate to extensive mucosal thickeinging/inspisaated mucous. frontal sinuses ahave mucosal thickening, ethmoid air cells have near complete opacification/inspissated mucous, nasal cavity/septum have mucosal thickening, 04/27 CXR: mild venous congestion, mild patchy markings at the lung bases Solumedrol change was not tolerated. Patient changed back to 60mg Q8H overnight. Today, patient changed to 60mg Q12H, will follow for tolerating new treatment. f/u with ID recommendations on when patient can switch to PO medications for treatment of infection 36F presents with acute respiratory distress, secondary to asthma exacerbation, was found to have Mycoplasma pneumonia and sinusitis. 1) Acute Respiratory Distress secondary to Asthma exacerbation, Mycoplasma Pneumonia, Sinusitis * severe asthma exacerbation * 04/27 treatment in ED * Terbutaline 0.5mg SQ, Solumedrol 125mg IVP Q once, Magnesium Sulfate 1gram IV Qtwice, Epinephrine 0.5mg SQ Q once, and 4 Albuterol nebulizer treatments * Pulmonary Consult: Dr. Pineda covering for Dr. Magdaleno * patient has eosinophilia, consider allergic component, serum IgE ordered. * 04/29 IgE 590 * Patient placed on Claritin. * Duoneb 3ml Inhaled Q4H * Solumedrol 60mg IV Q8H decreased to Solumedrol 40mg IVQ12H 04/30, will follow respiratory therapy notes * S. pneumoniae: negative * Legionella ab negative * Influenza a/b negative * Group A beta Strep pending 2) Asthma exacerbation * severe persistent (day symptoms for past week requiring nebulizer) * continue with breathing treatment 3) Mycoplasma Pneumonia (Atypical Pneumonia) * Infectious Disease: Dr. Bettencourt on board - Zosyn 3.[address] Bettencourt * Azithromycin 500mg IV QD, per Dr. Terrazas * Zosyn 3.375 IV Q8 hours * Mycoplasma IgM positive 4) Severe Sinusitis * ENT Consult 04/28 recommend antibiotic change to augmentin/bactrim for two weeks at home * noninvasive soft tissue techniques to assist with lymphatic drainage of sinuses, patient tolerated procedure well. Patient states her headaches have been minimal since treatment (Facial effleurage/soft tissue techniques for lymphatic drainage done on 04/28, 04/29, 04/30). Patient encouraged to try treatments herself to aid in lymphatic drainage. 5) Prophylaxis * SCDs bilaterally * Protonix 40mg IVP QD * encouraged to get OOB <Alba Terrazas V - Last Filed: 05/02/17 10:45> Objective - Vital Signs/Intake and Output Vital Signs (last 24 hours): Temp Pulse Resp BP Pulse Ox 97.6 F 84 20 123/82 97 05/02/17 09:21 05/02/17 09:21 05/02/17 09:21 05/02/17 09:21 05/02/17 09:21 Intake and Output: 05/02/17 05/02/17 06:59 18:59 Intake Total 600 Balance 600 - Medications Medications: Current Medications Acetaminophen (Tylenol 325mg Tab) 650 mg PO Q6 PRN PRN Reason: Headache Last Admin: 04/29/17 11:57 Dose: 650 mg Albuterol/Ipratropium (Duoneb 3 Mg/0.5 Mg (3 Ml) Ud) 3 ml INH RQ4 [facility] Last Admin: 05/02/17 03:24 Dose: Not Given Guaifenesin (Mucinex La) 600 mg PO BID [facility] Last Admin: 05/01/17 17:52 Dose: 600 mg Azithromycin 500 mg/ Sodium (Chloride) 250 mls @ 250 mls/hr IVPB DAILY [facility] Last Admin: 05/01/17 11:18 Dose: 250 mls/hr Piperacillin Sod/Tazobactam (Sod 3.375 gm/ Sodium Chloride) 100 mls @ 200 mls/ hr IVPB Q8H [facility] Last Admin: 05/02/17 05:01 Dose: 200 mls/hr Loratadine (Claritin) 10 mg PO DAILY [facility] Last Admin: 05/01/17 11:18 Dose: 10 mg Methylprednisolone (Solu-Medrol) 40 mg IVP Q12 [facility] Last Admin: 05/01/17 22:45 Dose: Not Given Montelukast Sodium (Singulair) 10 mg PO BID [facility] Last Admin: 05/01/17 17:52 Dose: 10 mg Pantoprazole Sodium (Protonix Ec Tab) 40 mg PO DAILY [facility] Last Admin: 05/01/17 11:18 Dose: 40 mg Promethazine HCl/Codeine (Phenergan/Codeine Oral Syrup) 5 ml PO Q4 PRN PRN Reason: cough Last Admin: 05/01/17 11:20 Dose: 5 ml Saccharomyces Boulardii (Florastor) 250 mg PO BID [facility] Last Admin: 05/01/17 17:52 Dose: 250 mg - Labs Labs: 04/30/17 06:19 04/30/17 06:19 Attending/Attestation - Attestation I have personally seen and examined this patient.: Yes I have fully participated in the care of the patient.: Yes I have reviewed all pertinent clinical information, including history, physical exam and plan: Yes Notes (Text): This is late computer entry for 05/01/17. Patient seen, examined and case discussed with day-time resident. Patient seen with patient's cousin at bedside who is assisting in translation. Patient having nasal drainage and reports she feels relief from it. Patient's room changed over night. Patient is away from air vent and appears to be breathing better. Patient reports she would like to go home. Explained to the patient she is on high dose steroid and will need to start tapering it prior to discharge. Spoke with Respiratory Therapist, Montse, patient's peak flow today is 270 which is improved. She also provided information to patient regarding asthma and asthma action plan. Discussed to the patient at bedside, she likely has allergic component to her asthma. In order to reduce allergic component, she will need to change her clothes when she enters her place of living, clean her bed sheets/coverings to reduce allergy exposure and prior to her change of weather, she will need to take an anti-histamine so her lungs become less reactive. Patient is currently fighting off sinus infection and pneumonia which she is currently on IV abx. Will start tapering IV steroids and c/w IV antibotics. Osteopathic medical student, dilan provided non-invasive soft tissue techniques to help with sinus drainage and help with patient's breathing. Assessment/Plan 1) Acute Respiratory Distress secondary to Asthma exacerbation, Mycoplasma Pneumonia, Sinusitis * Admit to telemetry * Change to inpatient given patient has severe asthma exacerbation * Consult: Dr. Pineda (pulm) covering for Dr. Magdaleno * in ED, given Terbutaline 0.5mg subq, Solumedrol 125mg IVPX1, Magnesium Sulfate 1gram IV X2, Epinephrine 0.5mg subqX1 and 4 Albuterol nebulizer treatments on 04/27/17 * Per pulm, patient appears to have allergic component given esinophilia * Start Claritin and ordered for serum IgE * start Duonebs 3ml Inhaled Q 4hours * Lower Solumedrol 40mg IV Q 12 hours * S. pneumoniae: negative, negative: legionella; negative influenza, Sputum: normal oral porsha * Promethazine w codeine 5ml PO Q 4hour PRN cough * Mucinex 600mg PO BID 2) Asthma exacerbation * severe persistent (day symptoms for past week requiring nebulizer) * ABG (04/28/17): oxygen well, not acidotic, not in CO2 retenion * Bipap PRN * Lower Solumedrol 40mg IV Q 12H * Start Duonebs 3ml INH RQ4H-->peak flow as improved to 270 ML * Claritin 10mg PO daily 3) Mycoplasma Pneumonia * Infectious Disease: Dr. Bettencourt on board * Azithromycin 500mg IV Q daily (active since 04/28/17) * Zosyn 3.375 IV Q 8 hours (active since 04/28/17) * Florastor 250mg PO BID * + Mycoplasma IgM * Promethazine w codeine 5ml PO Q 4hour PRN cough * Mucinex 600mg PO BID 4) Severe Sinusitis * CT Sinus (04/27/17): moderate mucosal thickening/inspissated mucus. left maxillary retention cyst. Moderate to entensive mucosal thickening/inspissated mucous in sphenoid sinues. Frontal sinuses: Moderate mucosal thickening/ inspissated mucus/mild fluid. Near complete opacification/inspissated mucoous. Mucosal thickening in nasal cavit * noninvasive soft tissue techniques to assist with lymphatic drainage daily--> patient permits and reports she is feeling better * Promethazine w codeine 5ml PO Q 4hour PRN cough * Mucinex 600mg PO BID 5) Prophylactic care * SCDS b/l * Protonix 40mg IV Q daily for GI ppx * OOB
--- NOTE | 2017-05-01 21:50 | CP.PCM.PN ---
Subjective - Date & Time of Evaluation Date of Evaluation: 05/01/17 Time of Evaluation: 21:50 Objective - Vital Signs/Intake and Output Vital Signs (last 24 hours): Temp Pulse Resp BP Pulse Ox 98.2 F 74 20 130/87 82 L 05/01/17 16:00 05/01/17 16:00 05/01/17 16:00 05/01/17 16:56 05/01/17 16:56 - Medications Medications: Current Medications Acetaminophen (Tylenol 325mg Tab) 650 mg PO Q6 PRN PRN Reason: Headache Last Admin: 04/29/17 11:57 Dose: 650 mg Albuterol/Ipratropium (Duoneb 3 Mg/0.5 Mg (3 Ml) Ud) 3 ml INH RQ4 [facility] Last Admin: 05/01/17 20:22 Dose: 3 ml Guaifenesin (Mucinex La) 600 mg PO BID [facility] Last Admin: 05/01/17 17:52 Dose: 600 mg Azithromycin 500 mg/ Sodium (Chloride) 250 mls @ 250 mls/hr IVPB DAILY [facility] Last Admin: 05/01/17 11:18 Dose: 250 mls/hr Piperacillin Sod/Tazobactam (Sod 3.375 gm/ Sodium Chloride) 100 mls @ 200 mls/ hr IVPB Q8H [facility] Last Admin: 05/01/17 21:12 Dose: 200 mls/hr Loratadine (Claritin) 10 mg PO DAILY [facility] Last Admin: 05/01/17 11:18 Dose: 10 mg Methylprednisolone (Solu-Medrol) 40 mg IVP Q12 [facility] Montelukast Sodium (Singulair) 10 mg PO BID [facility] Last Admin: 05/01/17 17:52 Dose: 10 mg Pantoprazole Sodium (Protonix Ec Tab) 40 mg PO DAILY [facility] Last Admin: 05/01/17 11:18 Dose: 40 mg Promethazine HCl/Codeine (Phenergan/Codeine Oral Syrup) 5 ml PO Q4 PRN PRN Reason: cough Last Admin: 05/01/17 11:20 Dose: 5 ml Saccharomyces Boulardii (Florastor) 250 mg PO BID [facility] Last Admin: 05/01/17 17:52 Dose: 250 mg - Labs Labs: 04/30/17 06:19 04/30/17 06:19
[2017-05-02] MEDS: Albuterol-Ipratrop 3 mg / 0.5 (3 ml) UD INH SCH ×5 (03:24→20:21)
[2017-05-02] MEDS: Piperacillin/Tazobact 3.375 GM in Sodium Chloride 100 ML IVPB SCH ×3 (05:01→21:27)
--- NOTE | 2017-05-02 08:02 | CP.PCM.PN ---
<Albert Hood - Last Filed: 05/02/17 09:23> Subjective - Date & Time of Evaluation Date of Evaluation: 05/02/17 Time of Evaluation: 06:20 - Subjective Subjective: PGY-[address] Terrazas Patient seen and examined at bedside. Patient reports that her breathing is a bit better than yesterday. Patient denies fever, chills, chest pain, dyspnea, abdominal pain, dysuria. Objective - Vital Signs/Intake and Output Vital Signs (last 24 hours): Temp Pulse Resp BP Pulse Ox 98 F 72 18 108/71 93 L 05/01/17 23:22 05/01/17 23:59 05/01/17 23:22 05/01/17 23:22 05/01/17 23:22 Intake and Output: 05/02/17 05/02/17 06:59 18:59 Intake Total 600 Balance 600 - Medications Medications: Current Medications Acetaminophen (Tylenol 325mg Tab) 650 mg PO Q6 PRN PRN Reason: Headache Last Admin: 04/29/17 11:57 Dose: 650 mg Albuterol/Ipratropium (Duoneb 3 Mg/0.5 Mg (3 Ml) Ud) 3 ml INH RQ4 [facility] Last Admin: 05/02/17 03:24 Dose: Not Given Guaifenesin (Mucinex La) 600 mg PO BID [facility] Last Admin: 05/01/17 17:52 Dose: 600 mg Azithromycin 500 mg/ Sodium (Chloride) 250 mls @ 250 mls/hr IVPB DAILY [facility] Last Admin: 05/01/17 11:18 Dose: 250 mls/hr Piperacillin Sod/Tazobactam (Sod 3.375 gm/ Sodium Chloride) 100 mls @ 200 mls/ hr IVPB Q8H [facility] Last Admin: 05/02/17 05:01 Dose: 200 mls/hr Loratadine (Claritin) 10 mg PO DAILY [facility] Last Admin: 05/01/17 11:18 Dose: 10 mg Methylprednisolone (Solu-Medrol) 40 mg IVP Q12 [facility] Last Admin: 05/01/17 22:45 Dose: Not Given Montelukast Sodium (Singulair) 10 mg PO BID [facility] Last Admin: 05/01/17 17:52 Dose: 10 mg Pantoprazole Sodium (Protonix Ec Tab) 40 mg PO DAILY [facility] Last Admin: 05/01/17 11:18 Dose: 40 mg Promethazine HCl/Codeine (Phenergan/Codeine Oral Syrup) 5 ml PO Q4 PRN PRN Reason: cough Last Admin: 05/01/17 11:20 Dose: 5 ml Saccharomyces Boulardii (Florastor) 250 mg PO BID [facility] Last Admin: 05/01/17 17:52 Dose: 250 mg - Labs Labs: 04/30/17 06:19 04/30/17 06:19 - Constitutional Appears: No Acute Distress - Head Exam Head Exam: ATRAUMATIC, NORMOCEPHALIC - Eye Exam Eye Exam: EOMI, PERRL - ENT Exam ENT Exam: Mucous Membranes Moist - Respiratory Exam Respiratory Exam: Wheezes (right upper lung field). absent: Rales, Rhonchi - Cardiovascular Exam Cardiovascular Exam: REGULAR RHYTHM, +S1, +S2 - GI/Abdominal Exam GI & Abdominal Exam: Soft, Normal Bowel Sounds. absent: Tenderness - Extremities Exam Extremities Exam: absent: Calf Tenderness, Pedal Edema - Neurological Exam Neurological Exam: Alert, Awake, Oriented x3 - Psychiatric Exam Psychiatric exam: Normal Affect, Normal Mood - Skin Skin Exam: Dry, Intact, Normal Color, Warm Assessment and Plan - Assessment and Plan (Free Text) Plan: Assessment: 04/28 CXR: mild venous congestion, right hilar prominence, patchy increased markings at bilateral lung bases 04/27 CT sinuses: mucosal thickening, left maxilary retention cyst, sphenoid sinuses have moderate to extensive mucosal thickeinging/inspisaated mucous. frontal sinuses ahave mucosal thickening, ethmoid air cells have near complete opacification/inspissated mucous, nasal cavity/septum have mucosal thickening, 04/27 CXR: mild venous congestion, mild patchy markings at the lung bases Solumedrol change was not tolerated. Patient changed back to 60mg Q8H overnight. Patient yesterday changed to 60mg Q12H, will follow throughout the day for tolerating new treatment. f/u with ID recommendations on when patient can switch to PO medications for treatment of infection 36F presents with acute respiratory distress, secondary to asthma exacerbation, was found to have Mycoplasma pneumonia and sinusitis. 1) Acute Respiratory Distress secondary to Asthma exacerbation, Mycoplasma Pneumonia, Sinusitis * severe asthma exacerbation * 04/27 treatment in ED * Terbutaline 0.5mg SQ, Solumedrol 125mg IVP Q once, Magnesium Sulfate 1gram IV Qtwice, Epinephrine 0.5mg SQ Q once, and 4 Albuterol nebulizer treatments * Pulmonary Consult: Dr. Pineda covering for Dr. Magdaleno * patient has eosinophilia, consider allergic component, serum IgE ordered. * 04/29 IgE 590 * Patient placed on Claritin. * Duoneb 3ml Inhaled Q4H * Solumedrol 60mg IV Q8H decreased to Solumedrol 40mg IVQ12H 04/30, will follow respiratory therapy notes * S. pneumoniae: negative * Legionella ab negative * Influenza a/b negative * Group A beta Strep pending 2) Asthma exacerbation * severe persistent (day symptoms for past week requiring nebulizer) * continue with breathing treatment 3) Mycoplasma Pneumonia (Atypical Pneumonia) * Infectious Disease: Dr. Bettencourt on board - Zosyn 3.[address] Bettencourt * Azithromycin 500mg IV QD, per Dr. Terrazas * Zosyn 3.375 IV Q8 hours * Mycoplasma IgM positive 4) Severe Sinusitis * ENT Consult 04/28 recommend antibiotic change to augmentin/bactrim for two weeks at home * noninvasive soft tissue techniques to assist with lymphatic drainage of sinuses, patient tolerated procedure well. Patient states her headaches have been minimal since treatment (Facial effleurage/soft tissue techniques for lymphatic drainage done on 04/28, 04/29, 04/30). Patient encouraged to try treatments herself to aid in lymphatic drainage. 5) Prophylaxis * SCDs bilaterally * Protonix 40mg IVP QD * encouraged to get OOB Will discuss case with Dr. Mk Hood PGY-1 <Alba Terrazas V - Last Filed: 05/02/17 10:53> Objective - Vital Signs/Intake and Output Vital Signs (last 24 hours): Temp Pulse Resp BP Pulse Ox 97.6 F 84 20 123/82 97 05/02/17 09:21 05/02/17 09:21 05/02/17 09:21 05/02/17 09:21 05/02/17 09:21 Intake and Output: 05/02/17 05/02/17 06:59 18:59 Intake Total 600 Balance 600 - Medications Medications: Current Medications Acetaminophen (Tylenol 325mg Tab) 650 mg PO Q6 PRN PRN Reason: Headache Last Admin: 04/29/17 11:57 Dose: 650 mg Albuterol/Ipratropium (Duoneb 3 Mg/0.5 Mg (3 Ml) Ud) 3 ml INH RQ4 [facility] Last Admin: 05/02/17 03:24 Dose: Not Given Guaifenesin (Mucinex La) 600 mg PO BID [facility] Last Admin: 05/01/17 17:52 Dose: 600 mg Azithromycin 500 mg/ Sodium (Chloride) 250 mls @ 250 mls/hr IVPB DAILY [facility] Last Admin: 05/01/17 11:18 Dose: 250 mls/hr Piperacillin Sod/Tazobactam (Sod 3.375 gm/ Sodium Chloride) 100 mls @ 200 mls/ hr IVPB Q8H [facility] Last Admin: 05/02/17 05:01 Dose: 200 mls/hr Loratadine (Claritin) 10 mg PO DAILY [facility] Last Admin: 05/01/17 11:18 Dose: 10 mg Methylprednisolone (Solu-Medrol) 40 mg IVP Q12 [facility] Last Admin: 05/01/17 22:45 Dose: Not Given Montelukast Sodium (Singulair) 10 mg PO BID [facility] Last Admin: 05/01/17 17:52 Dose: 10 mg Pantoprazole Sodium (Protonix Ec Tab) 40 mg PO DAILY [facility] Last Admin: 05/01/17 11:18 Dose: 40 mg Promethazine HCl/Codeine (Phenergan/Codeine Oral Syrup) 5 ml PO Q4 PRN PRN Reason: cough Last Admin: 05/01/17 11:20 Dose: 5 ml Saccharomyces Boulardii (Florastor) 250 mg PO BID [facility] Last Admin: 05/01/17 17:52 Dose: 250 mg - Labs Labs: 04/30/17 06:19 04/30/17 06:19 Attending/Attestation - Attestation I have personally seen and examined this patient.: Yes I have fully participated in the care of the patient.: Yes I have reviewed all pertinent clinical information, including history, physical exam and plan: Yes Notes (Text): Patient seen, examined and case discussed with day-time resident. Patient sitting upright this morning. patient's breathing is much improved. Patient reports the sinus drainage is helping her breath better through her nose. Patient's lung exam is much improving. Good air away exchange and mild wheezing on exam over right upper lung. Patient reports flank and suprapubic tenderness. Will order for urine studies to r/o UTI. Patient is already on Zosyn and Azithromycin IV. Will continue same dose of Solumedrol 40mg IV Q12 hours. Monitor Peak flows. Order one time order PRN: Flexeril 5mg PO once for muscle spasm. Assessment/Plan 1) Acute Respiratory Distress secondary to Asthma exacerbation, Mycoplasma Pneumonia, Sinusitis * Admit to telemetry * Change to inpatient given patient has severe asthma exacerbation * Consult: Dr. Pineda (pulm) covering for Dr. Magdaleno * in ED, given Terbutaline 0.5mg subq, Solumedrol 125mg IVPX1, Magnesium Sulfate 1gram IV X2, Epinephrine 0.5mg subqX1 and 4 Albuterol nebulizer treatments on 04/27/17 * Per pulm, patient appears to have allergic component given esinophilia * Start Claritin and ordered for serum IgE * start Duonebs 3ml Inhaled Q 4hours * Lower Solumedrol 40mg IV Q 12 hours * S. pneumoniae: negative, negative: legionella; negative influenza, Sputum: normal oral porsha * Promethazine w codeine 5ml PO Q 4hour PRN cough * Mucinex 600mg PO BID 2) Asthma exacerbation * severe persistent (day symptoms for past week requiring nebulizer) * ABG (04/28/17): oxygen well, not acidotic, not in CO2 retenion * Bipap PRN * c/w Solumedrol 40mg IV Q 12H * Start Duonebs 3ml INH RQ4H-->peak flow as improved to 270 ML * Claritin 10mg PO daily 3) Mycoplasma Pneumonia * Infectious Disease: Dr. Bettencourt on board * Azithromycin 500mg IV Q daily (active since 04/28/17) * Zosyn 3.375 IV Q 8 hours (active since 04/28/17) * Florastor 250mg PO BID * + Mycoplasma IgM * Promethazine w codeine 5ml PO Q 4hour PRN cough * Mucinex 600mg PO BID 4) Severe Sinusitis * CT Sinus (04/27/17): moderate mucosal thickening/inspissated mucus. left maxillary retention cyst. Moderate to entensive mucosal thickening/inspissated mucous in sphenoid sinues. Frontal sinuses: Moderate mucosal thickening/ inspissated mucus/mild fluid. Near complete opacification/inspissated mucoous. Mucosal thickening in nasal cavit * noninvasive soft tissue techniques to assist with lymphatic drainage daily--> patient permits and reports she is feeling better * Promethazine w codeine 5ml PO Q 4hour PRN cough * Mucinex 600mg PO BID 5) Prophylactic care * SCDS b/l * Protonix 40mg IV Q daily for GI ppx * OOB Disposition: Patient is ordered for urine studies r/o uti. I have low suspicion for UTI. Patient is also on IV Zosyn which is empiric broad coverage. Will continue Solumedrol 40mg IV Q12H, nebulizer, anti-histamine medication, medication to reduce allergy for asthma. Patient is possible discharge Thursday or Thursday depending on her breathin status.
[2017-05-02 09:22] VITALS: RESP 20
[2017-05-02] MEDS: guaiFENesin 600 mg ER Tab PO SCH ×2 (10:30→19:00)
[2017-05-02] MEDS ORDERED: Albuterol-Ipratrop 3 mg / 0.5 (3 ml) UD INH ONE (10:30)
[2017-05-02] MEDS: MethylPREDNISolone 40 mg Vial IVP SCH ×2 (10:30→21:28)
[2017-05-02] MEDS: Pantoprazole 40 mg EC Tab PO SCH (10:30)
[2017-05-02] MEDS: Azithromycin 500 MG in Sodium Chloride 0.9% 250 ML IVPB SCH (11:18)
[2017-05-02] MEDS: Saccharomyces Boulardi 250 mg Cap PO SCH ×2 (11:19→19:00)
[2017-05-02 14:54] LABS: BASO % 0.1 % (0.0-2.0); LYMPH # 1.5 K/uL (1.0-4.3); LYMPH % 14.1 % (20.0-40.0); MEAN CELL VOLUME 92.1 fL (81.0-99.0); MEAN CORPUSCULAR HEMOGLOBIN 31.6 pg (27.0-31.0); MEAN CORPUSCULAR HGB CONC 34.2 g/dL (33.0-37.0); MONO # 0.7 K/uL (0.0-0.8); MONO % 6.6 % (0.0-10.0); NRBC % 0.1 % (0.0-2.0); RED CELL DISTRIBUTION WIDTH 13.7 % (11.5-14.5)
[2017-05-02 15:04] LABS: CHLORIDE 98 mmol/L (98-107)
[2017-05-02 15:05] LABS: POTASSIUM 3.9 mmol/L (3.6-5.2); SODIUM 137 mmol/L (132-148)
[2017-05-02 15:07] LABS: ALB/GLOB RATIO 1.1 (1.0-2.1); AST/SGOT 22 U/L (14-36); BILIRUBIN,TOTAL 0.3 mg/dL (0.2-1.3); BLOOD UREA NITROGEN 18 mg/dL (7-17); CARBON DIOXIDE 24 mmol/L (22-30); GFR AFRICAN-AMERICAN > 60; TOTAL PROTEIN 6.7 g/dL (6.3-8.3)
[2017-05-02 15:08] LABS: ALKALINE PHOSPHATASE 56 U/L (38-126); ALT/SGPT 70 U/L (9-52); CALCIUM 8.9 mg/dl (8.6-10.4); GLUCOSE,RANDOM 118 mg/dL (65-105); MAGNESIUM 2.1 mg/dL (1.6-2.3); PHOSPHOROUS 3.5 mg/dL (2.5-4.5)
[2017-05-03] MEDS: Albuterol-Ipratrop 3 mg / 0.5 (3 ml) UD INH SCH ×4 (00:48→11:23)
[2017-05-03] MEDS: Piperacillin/Tazobact 3.375 GM in Sodium Chloride 100 ML IVPB SCH ×2 (05:30→13:57)
[2017-05-03 08:09] VITALS: BP 126/81; TEMP 98; O2SAT 94
[2017-05-03 08:40] LABS: BASO % 0.1 % (0.0-2.0); HEMATOCRIT 45.5 % (34.0-47.0); LYMPH # 2.2 K/uL (1.0-4.3); MEAN CELL VOLUME 92.1 fL (81.0-99.0); MEAN CORPUSCULAR HEMOGLOBIN 31.8 pg (27.0-31.0); MEAN CORPUSCULAR HGB CONC 34.5 g/dL (33.0-37.0); MEAN PLATELET VOLUME 9.8 fL (7.2-11.7); MONO # 0.8 K/uL (0.0-0.8); MONO % 6.4 % (0.0-10.0); NRBC % 0.1 % (0.0-2.0); PLATELET COUNT 221 K/uL (130-400); RED CELL DISTRIBUTION WIDTH 13.3 % (11.5-14.5); WHITE BLOOD COUNT 12.8 K/uL (4.8-10.8)
[2017-05-03 09:16] LABS: CHLORIDE 98 mmol/L (98-107); POTASSIUM 3.9 mmol/L (3.6-5.2); SODIUM 137 mmol/L (132-148)
[2017-05-03 09:18] LABS: AST/SGOT 22 U/L (14-36); BILIRUBIN,TOTAL 0.5 mg/dL (0.2-1.3); GFR AFRICAN-AMERICAN > 60
[2017-05-03 09:19] LABS: ALB/GLOB RATIO 1.1 (1.0-2.1); ALKALINE PHOSPHATASE 54 U/L (38-126); ALT/SGPT 63 U/L (9-52); BLOOD UREA NITROGEN 19 mg/dL (7-17); CALCIUM 8.9 mg/dl (8.6-10.4); CARBON DIOXIDE 22 mmol/L (22-30); GLUCOSE,RANDOM 116 mg/dL (65-105); MAGNESIUM 2.1 mg/dL (1.6-2.3); PHOSPHOROUS 4.2 mg/dL (2.5-4.5); TOTAL PROTEIN 7.3 g/dL (6.3-8.3)
[2017-05-03] MEDS: Saccharomyces Boulardi 250 mg Cap PO SCH (09:48)
[2017-05-03] MEDS: guaiFENesin 600 mg ER Tab PO SCH (09:48)
[2017-05-03] MEDS: Pantoprazole 40 mg EC Tab PO SCH (09:49)
[2017-05-03] MEDS: Azithromycin 500 MG in Sodium Chloride 0.9% 250 ML IVPB SCH (09:49)
[2017-05-03] MEDS: MethylPREDNISolone 40 mg Vial IVP SCH (09:49)
[2017-05-03 10:09] LABS: METAMYELOCYTE 1 % (0-0); NEUTROPHIL 73 % (50-75); REACTIVE LYMPHOCYTES 3 % (0-0); TOTAL CELLS COUNTED 100
--- NOTE | 2017-05-03 13:41 | CP.PCM.DIS ---
<Jayme Sheriff - Last Filed: 05/03/17 13:37> Provider - Provider Date of Admission: 04/27/17 23:46 Attending physician: Alba Terrazas DO Consults: Dr. Sharla Lujan Time Spent in preparation of Discharge (in minutes): 45 Hospital Course - Lab Results Lab Results: Micro Results 04/30/17 17:02 Nose MRSA Culture - Final MRSA NOT DETECTED 04/28/17 23:12 Sputum Gram Stain - Final 04/28/17 23:12 Sputum Sputum Culture - Final NORMAL ORAL WISAM 04/27/17 16:02 Naris MRSA Culture (Admit) - Final MRSA NOT DETECTED Most Recent Lab Values WBC 12.8 K/uL (4.8-10.8) H 05/03/17 08:19 RBC 4.94 Mil/uL (3.80-5.20) 05/03/17 08:19 Hgb 15.7 g/dL (11.0-16.0) 05/03/17 08:19 Hct 45.5 % (34.0-47.0) 05/03/17 08:19 MCV 92.1 fL (81.0-99.0) 05/03/17 08:19 MCH 31.8 pg (27.0-31.0) H 05/03/17 08:19 MCHC 34.5 g/dL (33.0-37.0) 05/03/17 08:19 RDW 13.3 % (11.5-14.5) 05/03/17 08:19 Plt Count 221 K/uL (130-400) 05/03/17 08:19 MPV 9.8 fL (7.2-11.7) 05/03/17 08:19 Neut % (Auto) 76.5 % (50.0-75.0) H 05/03/17 08:19 Lymph % (Auto) 17.0 % (20.0-40.0) L 05/03/17 08:19 [place] % (Auto) 6.4 % (0.0-10.0) 05/03/17 08:19 Eos % (Auto) 0.0 % (0.0-4.0) 05/03/17 08:19 Baso % (Auto) 0.1 % (0.0-2.0) 05/03/17 08:19 Neut # 9.8 K/uL (1.8-7.0) H 05/03/17 08:19 Lymph # 2.2 K/uL (1.0-4.3) 05/03/17 08:19 [place] # 0.8 K/uL (0.0-0.8) 05/03/17 08:19 Eos # 0.0 K/uL (0.0-0.7) 05/03/17 08:19 Baso # 0.0 K/uL (0.0-0.2) 05/03/17 08:19 Neutrophils % (Manual) 73 % (50-75) 05/03/17 08:19 Band Neutrophils % 3 % (0-2) H 05/03/17 08:19 Lymphocytes % (Manual) 15 % (20-40) L 05/03/17 08:19 Reactive Lymphs % 3 % (0-0) H 05/03/17 08:19 Monocytes % (Manual) 5 % (0-10) 05/03/17 08:19 Metamyelocytes % 1 % (0-0) H 05/03/17 08:19 Nucleated RBC % 1 % (0-0) H 04/30/17 06:19 Hypersegmented Polys Present 04/29/17 17:01 Smudge Cells Present 04/29/17 17:01 Toxic Granulation Present 04/29/17 17:01 Platelet Estimate Normal (NORMAL) 05/03/17 08:19 Large Platelets Present 04/29/17 17:01 RBC Morphology Normal 05/03/17 08:19 Polychromasia Slight 04/29/17 17:01 Poikilocytosis (manual Slight 04/29/17 17:01 Anisocytosis (manual) Slight 04/29/17 17:01 Microcytosis (manual) Slight 04/29/17 17:01 Puncture Site Rra 04/28/17 13:07 pCO2 32 mm/Hg (35-45) L 04/28/17 13:07 pO2 448 mm/Hg (80-100) H 04/28/17 13:07 HCO3 22.3 mmol/L (21-28) 04/28/17 13:07 ABG pH 7.41 (7.35-7.45) 04/28/17 13:07 ABG Total CO2 21.3 mmol/L (22-28) L 04/28/17 13:07 ABG O2 Saturation 99.5 % (95-98) H 04/28/17 13:07 ABG Base Excess -3.4 mmol/L (-2.0-3.0) L 04/28/17 13:07 Rafael Test Po 04/28/17 13:07 ABG Potassium 3.8 mmol/L (3.6-5.2) 04/28/17 13:07 A-a O2 Difference 225.0 mm/Hg 04/28/17 13:07 Respiratory Index 0.5 04/28/17 13:07 Sodium 137.0 mmol/l (132-148) 04/28/17 13:07 Chloride 109.0 mmol/L (98-107) H 04/28/17 13:07 Glucose 198 mg/dl (65-105) H 04/28/17 13:07 Lactate 3.2 mmol/L (0.7-2.1) H 04/28/17 13:07 Vent Mode Bipap 04/28/17 13:07 FiO2 100.0 % 04/28/17 13:07 Inspiratory BiPAP 12 04/28/17 13:07 Expiratory BiPAP 6 04/28/17 13:07 Sodium 137 mmol/L (132-148) 05/03/17 08:19 Potassium 3.9 mmol/L (3.6-5.2) 05/03/17 08:19 Chloride 98 mmol/L (98-107) 05/03/17 08:19 Carbon Dioxide 22 mmol/L (22-30) 05/03/17 08:19 Anion Gap 21 (10-20) H 05/03/17 08:19 BUN 19 mg/dL (7-17) H 05/03/17 08:19 Creatinine 0.7 MG/DL (0.7-1.2) 05/03/17 08:19 Est GFR ( Amer) > 60 05/03/17 08:19 Est GFR (Non-Af Amer) > 60 05/03/17 08:19 Random Glucose 116 mg/dL (65-105) H 05/03/17 08:19 Calcium 8.9 mg/dl (8.6-10.4) 05/03/17 08:19 Phosphorus 4.2 mg/dL (2.5-4.5) 05/03/17 08:19 Magnesium 2.1 mg/dL (1.6-2.3) 05/03/17 08:19 Total Bilirubin 0.5 mg/dL (0.2-1.3) 05/03/17 08:19 AST 22 U/L (14-36) 05/03/17 08:19 ALT 63 U/L (9-52) H 05/03/17 08:19 Alkaline Phosphatase 54 U/L (38-126) 05/03/17 08:19 Total Protein 7.3 g/dL (6.3-8.3) 05/03/17 08:19 Albumin 3.9 g/dL (3.5-5.0) 05/03/17 08:19 Globulin 3.4 gm/dL (2.2-3.9) 05/03/17 08:19 Albumin/Globulin Ratio 1.1 (1.0-2.1) 05/03/17 08:19 Arterial Blood Potassium 3.8 mmol/L (3.6-5.2) 04/28/17 13:07 Urine Color Yellow (YELLOW) 04/27/17 09:40 Urine Clarity Clear (Clear) 04/27/17 09:40 Urine pH 6.0 (5.0-8.0) 04/27/17 09:40 Ur Specific [place] 1.014 (1.003-1.030) 04/27/17 09:40 Urine Protein Negative mg/dL (NEGATIVE) 04/27/17 09:40 Urine Glucose (UA) 3+ mg/dL (Normal) H 04/27/17 09:40 Urine Ketones Negative mg/dL (NEGATIVE) 04/27/17 09:40 Urine Blood Negative (NEGATIVE) 04/27/17 09:40 Urine Nitrate Negative (NEGATIVE) 04/27/17 09:40 Urine Bilirubin Negative (NEGATIVE) 04/27/17 09:40 Urine Urobilinogen Normal mg/dL (0.2-1.0) 04/27/17 09:40 Ur Leukocyte Esterase Neg Jeremy/uL (Negative) 04/27/17 09:40 Urine WBC (Auto) 1 /hpf (0-5) 04/27/17 09:40 Urine RBC (Auto) < 1 /hpf (0-3) 04/27/17 09:40 Ur Squamous Epith Cells 1 /hpf (0-5) 04/27/17 09:40 Urine HCG, Qual Negative (NEGATIVE) 04/27/17 09:40 IgE 590 kU/L (<kb=063) H 04/27/17 15:56 Influenza Typ A,B (EIA) Negative for flu a/b (NEGATIVE) 04/27/17 09:22 H.influenzae Type B Ag Not required (NEGATIVE) 04/27/17 09:22 Ur L.pneumophila Ag Negative (NEGATIVE) 04/27/17 11:53 Mycoplasma pneumon IgM Positive (NEGATIVE) H 04/27/17 11:53 N.meningitidis ACY/W135 Not required (NEGATIVE) 04/27/17 09:22 N.meningi B/E.coli K1 Ag Not required (NEGATIVE) 04/27/17 09:22 Group B Strep Antigen Not required (NEGATIVE) 04/27/17 09:22 S. pneumoniae Antigen Negative (NEGATIVE) 04/27/17 09:22 - Hospital Course Hospital Course: 36F presents with acute respiratory distress, secondary to asthma exacerbation, was found to have Mycoplasma pneumonia and sinusitis. 1) Acute Respiratory Distress secondary to Asthma exacerbation, Mycoplasma Pneumonia, Sinusitis * severe asthma exacerbation * 04/27 treatment in ED * Terbutaline 0.5mg SQ, Solumedrol 125mg IVP Q once, Magnesium Sulfate 1gram IV Qtwice, Epinephrine 0.5mg SQ Q once, and 4 Albuterol nebulizer treatments * Pulmonary Consult: Dr. Pineda covering for Dr. Magdaleno * patient has eosinophilia, consider allergic component, serum IgE ordered. * 04/29 IgE 590 * Patient placed on Claritin. * Duoneb 3ml Inhaled Q4H * Solumedrol 60mg IV Q8H decreased to Solumedrol 40mg IVQ12H 04/30, will follow respiratory therapy notes * S. pneumoniae: negative * Legionella ab negative * Influenza a/b negative * Group A beta Strep pending patient has improved greately; tolerated 60mg IV Solumedrol; will d/c on prednisone taper 2) Asthma exacerbation * severe persistent (day symptoms for past week requiring nebulizer) * continue with breathing treatment patient will need to follow up with Dr. Magdaleno in 1 week for adjustment of any medications patient will also need to follow up in [facility] azithromycin for 5 days Proventil Lortadine and monteleukast 3) Mycoplasma Pneumonia (Atypical Pneumonia); resolving * Infectious Disease: Dr. Bettencourt on board - Zosyn 3.[address] Bettencourt * Azithromycin 500mg IV QD, per Dr. Terrazas * Zosyn 3.375 IV Q8 hours * Mycoplasma IgM positive patient to continue Z-pack and finish course 4) Severe Sinusitis; resolved * ENT Consult 04/28 recommend antibiotic change to augmentin/bactrim for two weeks at home * noninvasive soft tissue techniques to assist with lymphatic drainage of sinuses, patient tolerated procedure well. Patient states her headaches have been minimal since treatment (Facial effleurage/soft tissue techniques for lymphatic drainage done on 04/28, 04/29, 04/30). Patient encouraged to try treatments herself to aid in lymphatic drainage. Discussed with Dr. Terrazas The patient is stable for discharge as per Dr. Terrazas Discharge Exam - Head Exam Head Exam: ATRAUMATIC, NORMOCEPHALIC - Eye Exam Eye Exam: EOMI Pupil Exam: PERRL - ENT Exam ENT Exam: Mucous Membranes Moist - Neck Exam Neck exam: Full Rom - Respiratory Exam Respiratory Exam: NORMAL BREATHING PATTERN, UNREMARKABLE - Cardiovascular Exam Cardiovascular Exam: REGULAR RHYTHM - GI/Abdominal Exam GI & Abdominal Exam: Normal Bowel Sounds, Unremarkable - Rectal Exam Rectal Exam: Deferred - Extremities Exam Extremities exam: full ROM - Back Exam Back exam: NORMAL INSPECTION. absent: CVA tenderness (L), CVA tenderness (R) - Neurological Exam Neurological exam: Alert, Oriented x3 - Psychiatric Exam Psychiatric exam: Normal Affect, Normal Mood - Skin Skin Exam: Warm Discharge Plan - Discharge Medications Prescriptions: Albuterol HFA [Ventolin HFA 90 mcg/actuation (8 g)] 1 puff IH Q4H PRN #1 inhaler PRN Reason: Shortness Of Breath Azithromycin [Zithromax] 250 mg PO DAILY #5 tab Fluticasone/Salmeterol 250/50 [Advair Diskus] 1 puff IH Q12 #1 dsk guaiFENesin [Mucinex LA] 600 mg PO BID PRN #60 tab PRN Reason: Cough Loratadine [Claritin] 10 mg PO DAILY #30 tab Methylprednisolone [Medrol Dose Pack (21 tabs)] See Taper PO DAILY #21 mg Montelukast [Singulair] 10 mg PO BID #60 tab Promethazine HCl/Codeine [Prometh-Codein 6.25-10 mg/5 ml] 5 ml PO Q4 PRN #120 syrup PRN Reason: Cough - Follow Up Plan Condition: STABLE Disposition: HOME/ ROUTINE Patient education suggested?: Yes Instructions: Asthma (DC) Referrals: Cameron Magdaleno MD [Staff Provider] - [facility] [Provider Group] <Alba Terrazas V - Last Filed: 05/03/17 21:42> Provider - Provider Date of Admission: 04/27/17 23:46 Attending physician: Alba Terrazas DO Consults: [facility] - Lab Results Lab Results: Micro Results 04/30/17 17:02 Nose MRSA Culture - Final MRSA NOT DETECTED 04/28/17 23:12 Sputum Gram Stain - Final 04/28/17 23:12 Sputum Sputum Culture - Final NORMAL ORAL WISAM 04/27/17 16:02 Naris MRSA Culture (Admit) - Final MRSA NOT DETECTED Most Recent Lab Values WBC 12.8 K/uL (4.8-10.8) H 05/03/17 08:19 RBC 4.94 Mil/uL (3.80-5.20) 05/03/17 08:19 Hgb 15.7 g/dL (11.0-16.0) 05/03/17 08:19 Hct 45.5 % (34.0-47.0) 05/03/17 08:19 MCV 92.1 fL (81.0-99.0) 05/03/17 08:19 MCH 31.8 pg (27.0-31.0) H 05/03/17 08:19 MCHC 34.5 g/dL (33.0-37.0) 05/03/17 08:19 RDW 13.3 % (11.5-14.5) 05/03/17 08:19 Plt Count 221 K/uL (130-400) 05/03/17 08:19 MPV 9.8 fL (7.2-11.7) 05/03/17 08:19 Neut % (Auto) 76.5 % (50.0-75.0) H 05/03/17 08:19 Lymph % (Auto) 17.0 % (20.0-40.0) L 05/03/17 08:19 [place] % (Auto) 6.4 % (0.0-10.0) 05/03/17 08:19 Eos % (Auto) 0.0 % (0.0-4.0) 05/03/17 08:19 Baso % (Auto) 0.1 % (0.0-2.0) 05/03/17 08:19 Neut # 9.8 K/uL (1.8-7.0) H 05/03/17 08:19 Lymph # 2.2 K/uL (1.0-4.3) 05/03/17 08:19 [place] # 0.8 K/uL (0.0-0.8) 05/03/17 08:19 Eos # 0.0 K/uL (0.0-0.7) 05/03/17 08:19 Baso # 0.0 K/uL (0.0-0.2) 05/03/17 08:19 Neutrophils % (Manual) 73 % (50-75) 05/03/17 08:19 Band Neutrophils % 3 % (0-2) H 05/03/17 08:19 Lymphocytes % (Manual) 15 % (20-40) L 05/03/17 08:19 Reactive Lymphs % 3 % (0-0) H 05/03/17 08:19 Monocytes % (Manual) 5 % (0-10) 05/03/17 08:19 Metamyelocytes % 1 % (0-0) H 05/03/17 08:19 Nucleated RBC % 1 % (0-0) H 04/30/17 06:19 Hypersegmented Polys Present 04/29/17 17:01 Smudge Cells Present 04/29/17 17:01 Toxic Granulation Present 04/29/17 17:01 Platelet Estimate Normal (NORMAL) 05/03/17 08:19 Large Platelets Present 04/29/17 17:01 RBC Morphology Normal 05/03/17 08:19 Polychromasia Slight 04/29/17 17:01 Poikilocytosis (manual Slight 04/29/17 17:01 Anisocytosis (manual) Slight 04/29/17 17:01 Microcytosis (manual) Slight 04/29/17 17:01 Puncture Site Rra 04/28/17 13:07 pCO2 32 mm/Hg (35-45) L 04/28/17 13:07 pO2 448 mm/Hg (80-100) H 04/28/17 13:07 HCO3 22.3 mmol/L (21-28) 04/28/17 13:07 ABG pH 7.41 (7.35-7.45) 04/28/17 13:07 ABG Total CO2 21.3 mmol/L (22-28) L 04/28/17 13:07 ABG O2 Saturation 99.5 % (95-98) H 04/28/17 13:07 ABG Base Excess -3.4 mmol/L (-2.0-3.0) L 04/28/17 13:07 Rafael Test Po 04/28/17 13:07 ABG Potassium 3.8 mmol/L (3.6-5.2) 04/28/17 13:07 A-a O2 Difference 225.0 mm/Hg 04/28/17 13:07 Respiratory Index 0.5 04/28/17 13:07 Sodium 137.0 mmol/l (132-148) 04/28/17 13:07 Chloride 109.0 mmol/L (98-107) H 04/28/17 13:07 Glucose 198 mg/dl (65-105) H 04/28/17 13:07 Lactate 3.2 mmol/L (0.7-2.1) H 04/28/17 13:07 Vent Mode Bipap 04/28/17 13:07 FiO2 100.0 % 04/28/17 13:07 Inspiratory BiPAP 12 04/28/17 13:07 Expiratory BiPAP 6 04/28/17 13:07 Sodium 137 mmol/L (132-148) 05/03/17 08:19 Potassium 3.9 mmol/L (3.6-5.2) 05/03/17 08:19 Chloride 98 mmol/L (98-107) 05/03/17 08:19 Carbon Dioxide 22 mmol/L (22-30) 05/03/17 08:19 Anion Gap 21 (10-20) H 05/03/17 08:19 BUN 19 mg/dL (7-17) H 05/03/17 08:19 Creatinine 0.7 MG/DL (0.7-1.2) 05/03/17 08:19 Est GFR ( Amer) > 60 05/03/17 08:19 Est GFR (Non-Af Amer) > 60 05/03/17 08:19 Random Glucose 116 mg/dL (65-105) H 05/03/17 08:19 Calcium 8.9 mg/dl (8.6-10.4) 05/03/17 08:19 Phosphorus 4.2 mg/dL (2.5-4.5) 05/03/17 08:19 Magnesium 2.1 mg/dL (1.6-2.3) 05/03/17 08:19 Total Bilirubin 0.5 mg/dL (0.2-1.3) 05/03/17 08:19 AST 22 U/L (14-36) 05/03/17 08:19 ALT 63 U/L (9-52) H 05/03/17 08:19 Alkaline Phosphatase 54 U/L (38-126) 05/03/17 08:19 Total Protein 7.3 g/dL (6.3-8.3) 05/03/17 08:19 Albumin 3.9 g/dL (3.5-5.0) 05/03/17 08:19 Globulin 3.4 gm/dL (2.2-3.9) 05/03/17 08:19 Albumin/Globulin Ratio 1.1 (1.0-2.1) 05/03/17 08:19 Arterial Blood Potassium 3.8 mmol/L (3.6-5.2) 04/28/17 13:07 Urine Color Yellow (YELLOW) 04/27/17 09:40 Urine Clarity Clear (Clear) 04/27/17 09:40 Urine pH 6.0 (5.0-8.0) 04/27/17 09:40 Ur Specific [place] 1.014 (1.003-1.030) 04/27/17 09:40 Urine Protein Negative mg/dL (NEGATIVE) 04/27/17 09:40 Urine Glucose (UA) 3+ mg/dL (Normal) H 04/27/17 09:40 Urine Ketones Negative mg/dL (NEGATIVE) 04/27/17 09:40 Urine Blood Negative (NEGATIVE) 04/27/17 09:40 Urine Nitrate Negative (NEGATIVE) 04/27/17 09:40 Urine Bilirubin Negative (NEGATIVE) 04/27/17 09:40 Urine Urobilinogen Normal mg/dL (0.2-1.0) 04/27/17 09:40 Ur Leukocyte Esterase Neg Jeremy/uL (Negative) 04/27/17 09:40 Urine WBC (Auto) 1 /hpf (0-5) 04/27/17 09:40 Urine RBC (Auto) < 1 /hpf (0-3) 04/27/17 09:40 Ur Squamous Epith Cells 1 /hpf (0-5) 04/27/17 09:40 Urine HCG, Qual Negative (NEGATIVE) 04/27/17 09:40 IgE 590 kU/L (<ys=857) H 04/27/17 15:56 Influenza Typ A,B (EIA) Negative for flu a/b (NEGATIVE) 04/27/17 09:22 H.influenzae Type B Ag Not required (NEGATIVE) 04/27/17 09:22 Ur L.pneumophila Ag Negative (NEGATIVE) 04/27/17 11:53 Mycoplasma pneumon IgM Positive (NEGATIVE) H 04/27/17 11:53 N.meningitidis ACY/W135 Not required (NEGATIVE) 04/27/17 09:22 N.meningi B/E.coli K1 Ag Not required (NEGATIVE) 04/27/17 09:22 Group B Strep Antigen Not required (NEGATIVE) 04/27/17 09:22 S. pneumoniae Antigen Negative (NEGATIVE) 04/27/17 09:22 Attending/Attestation - Attestation I have personally seen and examined this patient.: Yes I have fully participated in the care of the patient.: Yes I have reviewed all pertinent clinical information, including history, physical exam and plan: Yes Notes (Text): Patient seen, examined and case discussed with day-time resident. Patient sitting this afternoon with son at bedside. Patient is breathing with ease without bipap or nasal cannula. Patient's lung exam is clear with minimal wheezing and good air exchange. Patient's peak flow 280ml. Unable to assess how severe her asthma was on admission but was in acute respiratory distress which pre-empted a peak flow on admission. Medications arranged to the patient prior to admission: 1) Azithromycin 250mg PO once day for 5 days 2) Medrol dose pack (to use as described) with food 3) Albuterol HFA 1 puff Q4-6H PRN shortness of breathe 4) Advair 250/50 1 inhaled Q 12h-->exchanged for Breo Ellipta (cheaper option for the patient) 5) Supportive therapy including Mucinex and Promethazine w codeine 5ml PO Q4 HR cough 6) Claritin day for allergy 7) Singulair 10mg PO bid Discharge order and discharge instructions provided to day-time resident and patient at bedside. Patient advised to follow-up in the [facility] to establish care following hospitalization. Patient can obtain pulm referral and Ent referral once she has established care. Patient advised to clean in place of residence, to minimize exposure to allergen into her house, to wash sheets and clothes to prevent further asthma exacerbation. Patient feels less facial congestion and reports soft tissue techniques to help sinus drainage have helped her alot. Patient denies urinary symptoms at bedside today. This is a summary of patient's hospitalization. Please see EMR for further details. Assessment/Plan 1) Acute Respiratory Distress secondary to Asthma exacerbation, Mycoplasma Pneumonia, Sinusitis * stable * upon discharge, * 1) Azithromycin 250mg PO once day for 5 days * 2) Medrol dose pack (to use as described) with food * 3) Albuterol HFA 1 puff Q4-6H PRN shortness of breathe * 4) Advair 250/50 1 inhaled Q 12h-->exchanged for Breo Ellipta (cheaper option for the patient) * 5) Supportive therapy including Mucinex and Promethazine w codeine 5ml PO Q4 HR cough * 6) Claritin day for allergy * 7) Singulair 10mg PO bid 2) Asthma exacerbation * stable * upon discharge, * 1) Azithromycin 250mg PO once day for 5 days * 2) Medrol dose pack (to use as described) with food * 3) Albuterol HFA 1 puff Q4-6H PRN shortness of breathe * 4) Advair 250/50 1 inhaled Q 12h-->exchanged for Breo Ellipta (cheaper option for the patient) * 5) Supportive therapy including Mucinex and Promethazine w codeine 5ml PO Q4 HR cough * 6) Claritin day for allergy * 7) Singulair 10mg PO bid 3) Mycoplasma Pneumonia * Infectious Disease: Dr. Bettencourt on board * Azithromycin 500mg IV Q daily (active since 04/28/17-05/03/17) * Zosyn 3.375 IV Q 8 hours (active since 04/28/17-05/03/17) * Florastor 250mg PO BID * + Mycoplasma IgM * Promethazine w codeine 5ml PO Q 4hour PRN cough * Mucinex 600mg PO BID * Supportive therapy including Mucinex and Promethazine w codeine 5ml PO Q4 HR cough 4) Severe Sinusitis * ENT (Dr. Rivera) on case-->help appreciated * CT Sinus (04/27/17): moderate mucosal thickening/inspissated mucus. left maxillary retention cyst. Moderate to entensive mucosal thickening/inspissated mucous in sphenoid sinues. Frontal sinuses: Moderate mucosal thickening/ inspissated mucus/mild fluid. Near complete opacification/inspissated mucoous. Mucosal thickening in nasal cavity * Patient has had daily noninvasive soft tissue techniques to assist with lymphatic drainage daily over her sinuses-->patient permits and reports she is feeling better * Promethazine w codeine 5ml PO Q 4hour PRN cough * Mucinex 600mg PO BID * Will need to follow-up with PMD and if does not improve, will need ENT referral 5) Prophylactic care * SCDS b/l * Protonix 40mg IV Q daily for GI ppx * OOB
--- NOTE | 2017-05-03 15:32 | CP.PCM.PN ---
Subjective - Date & Time of Evaluation Date of Evaluation: 05/03/17 Time of Evaluation: 09:00 - Subjective Subjective: improving afeb Objective - Vital Signs/Intake and Output Vital Signs (last 24 hours): Temp Pulse Resp BP Pulse Ox 98 F 98 H 20 126/81 94 L 05/03/17 08:06 05/03/17 08:06 05/03/17 08:06 05/03/17 08:06 05/03/17 08:06 Intake and Output: 05/03/17 05/03/17 06:59 18:59 Intake Total 600 Balance 600 - Medications Medications: Current Medications Acetaminophen (Tylenol 325mg Tab) 650 mg PO Q6 PRN PRN Reason: Headache Last Admin: 04/29/17 11:57 Dose: 650 mg Albuterol/Ipratropium (Duoneb 3 Mg/0.5 Mg (3 Ml) Ud) 3 ml INH RQ4 [facility] Last Admin: 05/03/17 11:23 Dose: 3 ml Guaifenesin (Mucinex La) 600 mg PO BID [facility] Last Admin: 05/03/17 09:48 Dose: 600 mg Azithromycin 500 mg/ Sodium (Chloride) 250 mls @ 250 mls/hr IVPB DAILY [facility] Last Admin: 05/03/17 09:49 Dose: 250 mls/hr Piperacillin Sod/Tazobactam (Sod 3.375 gm/ Sodium Chloride) 100 mls @ 200 mls/ hr IVPB Q8H [facility] Last Admin: 05/03/17 13:57 Dose: 200 mls/hr Loratadine (Claritin) 10 mg PO DAILY [facility] Last Admin: 05/03/17 09:48 Dose: 10 mg Methylprednisolone (Solu-Medrol) 40 mg IVP Q12 [facility] Last Admin: 05/03/17 09:49 Dose: 40 mg Montelukast Sodium (Singulair) 10 mg PO BID [facility] Last Admin: 05/03/17 09:49 Dose: 10 mg Pantoprazole Sodium (Protonix Ec Tab) 40 mg PO DAILY [facility] Last Admin: 05/03/17 09:49 Dose: 40 mg Promethazine HCl/Codeine (Phenergan/Codeine Oral Syrup) 5 ml PO Q4 PRN PRN Reason: cough Last Admin: 05/01/17 11:20 Dose: 5 ml Saccharomyces Boulardii (Florastor) 250 mg PO BID [facility] Last Admin: 05/03/17 09:48 Dose: 250 mg - Labs Labs: 05/03/17 08:19 05/03/17 08:19 - Constitutional Appears: Non-toxic, Chronically Ill - Head Exam Head Exam: NORMOCEPHALIC - Eye Exam Eye Exam: PERRL - ENT Exam ENT Exam: Mucous Membranes Dry - Neck Exam Neck Exam: absent: Lymphadenopathy - Respiratory Exam Respiratory Exam: Decreased Breath Sounds - Cardiovascular Exam Cardiovascular Exam: REGULAR RHYTHM - GI/Abdominal Exam GI & Abdominal Exam: Distended, Soft Assessment and Plan (1) Mycoplasma pneumoniae [M. pneumoniae] as the cause of diseases classified elsewhere Status: Acute (2) Mycoplasma pneumoniae [M. pneumoniae] as the cause of diseases classified elsewhere Status: Acute (3) Asthma Status: Acute
[2017-05-03 17:02] VITALS: PULSE 95
--- NOTE | 2017-05-05 10:56 | CARD ---
APPROVED REPORT EKG Measurement Heart [id number] <Conclusion> Sinus tachycardia Possible Left atrial enlargement Borderline ECG
== END 2017-05-03 15:00 | disposition home or self-care (01) | DRG 202 ==
LOC: C.ER 07:21 → INTOOBSV 09:22 → C.9E 09:22 → C.9I 14:11 → OBSVTOIN 23:46 → C.5S 04-30 17:43
PROVIDERS: ADMIT Hospitalist; ATTEND Hospitalist
PROC: 5A09457 Assistance with Respiratory Ventilation, 24-96 Consecutive Hours, Continuous Positive Airway Pressure (ICD-10-PCS; principal; 2017-04-27)
DX: J45.52 Severe persistent asthma with status asthmaticus (principal); J15.7 Pneumonia due to Mycoplasma pneumoniae; D72.1 Eosinophilia; J34.2 Deviated nasal septum; J32.9 Chronic sinusitis, unspecified

== ENCOUNTER 2017-05-27 21:44 | Emergency (ER) | payer MEDICAID, OTHER ==
[2017-05-27] MEDS ORDERED: Albuterol-Ipratrop 3 mg / 0.5 (3 ml) UD ONE ×3 (21:49→22:38)
[2017-05-27] MEDS ORDERED: Albuterol-Ipratrop 3 mg / 0.5 (3 ml) UD INH STA ×3 (22:11)
[2017-05-27] MEDS ORDERED: Magnesium Sulfate 1 gm in D5W 2 GM/200 ML BAG IVPB ONE (22:31)
[2017-05-27 22:56] LABS: BASO % 0.3 % (0.0-2.0); EOS # 0.1 K/uL (0.0-0.7); EOS % 0.9 % (0.0-4.0); HEMATOCRIT 46.7 % (34.0-47.0); LYMPH # 2.9 K/uL (1.0-4.3); LYMPH % 43.6 % (20.0-40.0); MEAN CELL VOLUME 92.8 fL (81.0-99.0); MEAN CORPUSCULAR HEMOGLOBIN 31.7 pg (27.0-31.0); MEAN CORPUSCULAR HGB CONC 34.2 g/dL (33.0-37.0); MEAN PLATELET VOLUME 8.8 fL (7.2-11.7); MONO # 0.7 K/uL (0.0-0.8); MONO % 10.5 % (0.0-10.0); NRBC % 0.2 % (0.0-2.0); WHITE BLOOD COUNT 6.7 K/uL (4.8-10.8)
[2017-05-27 23:05] LABS: CHLORIDE 100 mmol/L (98-107); SODIUM 133 mmol/L (132-148)
[2017-05-27] MEDS: Magnesium Sulfate 1 gm in D5W 1 GM/100 ML BAG IVPB SCH ×2 (23:05→23:43)
[2017-05-27 23:06] LABS: POTASSIUM 4.2 mmol/L (3.6-5.2)
[2017-05-27 23:08] LABS: ALB/GLOB RATIO 1.6 (1.0-2.1); ALKALINE PHOSPHATASE 56 U/L (38-126); ALT/SGPT 36 U/L (9-52); AST/SGOT 25 U/L (14-36); BILIRUBIN,TOTAL 0.5 mg/dL (0.2-1.3); BLOOD UREA NITROGEN 10 mg/dL (7-17); CARBON DIOXIDE 23 mmol/L (22-30); GFR AFRICAN-AMERICAN > 60; GLUCOSE,RANDOM 92 mg/dL (65-105); TOTAL PROTEIN 6.4 g/dL (6.3-8.3)
[2017-05-27 23:09] LABS: CALCIUM 8.7 mg/dl (8.6-10.4)
[2017-05-28 00:25] VITALS: BP 106/71; PULSE 99; RESP 16; TEMP 98.1; O2SAT 97
--- NOTE | 2017-05-28 01:25 | C.PDOC ---
History Of Present Illness Patient is a 36 y/o female, with a Hx of asthma, who presents to the ED with typical asthmatic symptoms beginning today. Patient admits to mild, non- productive cough. Denies fever, recent travel, sick contact, nausea or vomiting , or chest pain. Patient was seen 2-3 weeks ago in ED for similar symptoms. No other physical complaints at this time. Time Seen by Provider: 05/27/17 22:04 Chief Complaint (Nursing): Shortness Of Breath History Per: Patient History/Exam Limitations: no limitations Onset/Duration Of Symptoms: Hrs (symptoms began today) Current Symptoms Are (Timing): Still Present Associated Symptoms: Productive Cough. denies: Fever, Chest Pain Recent travel outside of the [place]: No Additional History Per: Patient Past Medical History Reviewed: Historical Data, Nursing Documentation, Vital Signs Vital Signs: Last Vital Signs Temp 98.1 F 05/28/17 00:24 Pulse 99 H 05/28/17 00:24 Resp 16 05/28/17 00:24 BP 106/71 05/28/17 00:24 Pulse Ox 97 05/28/17 01:31 - Medical History PMH: Asthma Surgical History: Appendectomy, Cholecystectomy - [facility] Procedures ASSISTANCE WITH RESPIRATORY VENTILATION, 24-96 HRS, CPAP (04/27/17) Family History: States: Unknown Family Hx - Social History Hx Alcohol Use: No Hx Substance Use: No - Immunization History Hx Tetanus Toxoid Vaccination: No Hx Influenza Vaccination: No Hx Pneumococcal Vaccination: No Review Of Systems Constitutional: Negative for: Fever Cardiovascular: Negative for: Chest Pain Respiratory: Positive for: Cough (non-productive), Shortness of Breath, Wheezing. Negative for: Sputum Gastrointestinal: Negative for: Nausea, Vomiting Physical Exam - Physical Exam Appears: In Acute Distress (mild) Skin: Normal Color, Warm, Dry Head: Atraumatic, Normacephalic Oral Mucosa: Moist Chest: Symmetrical Cardiovascular: Rhythm Regular, No Murmur Respiratory: No Rales, No Rhonchi, Wheezing (bilateral expiratory wheeze) Gastrointestinal/Abdominal: Soft, No Tenderness Extremity: Normal ROM, No Tenderness Neurological/Psych: Oriented x3, Normal Speech, Normal Cognition ED Course And Treatment - Laboratory Results Result Diagrams: 05/27/17 22:53 05/27/17 22:53 ECG: Interpreted By Me, Viewed By Me ECG Rhythm: Sinus Tachycardia ECG Interpretation: Normal Rate From EC (bpm) O2 Sat by Pulse Oximetry: 97 Progress Note: Plan: EKG, CXR, and blood work ordered. Albuterol administered. Reassess: Patient is discharged with prescription and was given follow up instructions. Reevaluation Time: 00:13 (patient 100% on room air; lungs clear and not in distress. ) Reassessment Condition: Improved Critical Care Time - Critical Care Note Total Time (in mins): 30 Comments: ED physician geetha leyva. Documented critical care: time excludes all time spent performing seperately billable procedures. Disposition - Disposition Referrals: [facility] [Outside] [facility] [Outside] Disposition: HOME/ ROUTINE Disposition Time: 00:10 Condition: IMPROVED Additional Instructions: Thank you for letting us take care of you today. Your provider was Dr. Purcell. You were treated for asthma. The emergency medical care you received today was directed at your acute symptoms. If you were prescribed any medication , please fill it and take as directed. It may take several days for your symptoms to resolve. Return to the Emergency Department if your symptoms worsen , do not improve, or if you have any other problems. Please contact your doctor or call one of the physicians/clinics you have been referred to that are listed on the Patient Visit Information form that is included in your discharge packet. Bring any paperwork you were given at discharge with you along with any medications you are taking to your follow up visit. Our treatment cannot replace ongoing medical care by a primary care provider (PCP) outside of the emergency department. Thank you for allowing the [facility] team to be part of your care today. Follow up with your doctor in 2-3 days for outpatient care and further management. Je por dejarnos atenderlo hoy. Zelaya proveedor fue el Dr. Purcell. Usted fue tratado por asma. La atencin mdica de emergencia que recibi hoy estaba dirigida a frida sntomas agudos. Si le prescribieron algn medicamento, llnelo y tome segn las indicaciones. Frida sntomas pueden tardar varios segovia en resolverse. Regrese al Departamento de Emergencia si frida sntomas empeoran, no mejoran o si tiene algn otro problema. Comunquese con zelaya mdico o llame a karoline de los mdicos / clnicas a los que neal sido referido que figura en el formulario de Informacin de visita del paciente que se incluye en zelaya paquete de eleazar. Traiga todos los documentos que recibi al momento del eleazar junto con los medicamentos que est tomando en zelaya visita de seguimiento. Nuestro tratamiento no puede reemplazar la atencin mdica en curso por parte de un proveedor de atencin primaria (PCP) fuera del departamento de emergencias. Je por permitir que el equipo de [facility] sea parte de zelaya cuidado hoy. Jing un seguimiento con zelaya mdico en 2-3 segovia para atencin ambulatoria y manejo posterior. Prescriptions: predniSONE [Prednisone] 40 mg PO DAILY #10 tab Forms: Gen Discharge Inst Ukrainian Print Language: BELARUSIAN - Clinical Impression Clinical Impression: Asthma - Scribe Statement The provider has reviewed the documentation as recorded by the Scribe Hannah Gomes All medical record entries made by the Scribe were at my direction and personally dictated by me. I have reviewed the chart and agree that the record accurately reflects my personal performance of the history, physical exam, medical decision making, and the department course for this patient. I have also personally directed, reviewed, and agree with the discharge instructions and disposition.
--- NOTE | 2017-05-28 08:35 | RAD ---
PROCEDURE: CHEST RADIOGRAPH, 1 VIEW HISTORY: Shortness of breath COMPARISON: 04/27/2017 FINDINGS: LUNGS: Mild venous congestion. PLEURA: No pneumothorax or pleural fluid seen. CARDIOVASCULAR: Normal. OSSEOUS STRUCTURES: No significant abnormalities. VISUALIZED UPPER ABDOMEN: Normal. OTHER FINDINGS: None. IMPRESSION: Mild venous congestion.
--- NOTE | 2017-05-30 10:36 | CARD ---
APPROVED REPORT EKG Measurement Heart [id number] <Conclusion> Sinus tachycardia Possible Left atrial enlargement Borderline ECG
== END 2017-05-28 00:25 | disposition home or self-care (01) ==
LOC: C.ER 21:44
DX: J45.909 Unspecified asthma, uncomplicated (principal)
CPT/HCPCS: 71010; 80053; 85025; 87040; 94640; 96365; 96366; 96375; 99284; J2930; J3475

== ENCOUNTER 2017-08-09 18:58 | Emergency (ER) | payer OTHER ==
[2017-08-09 18:59] VITALS: BMI 32.2
[2017-08-09 19:26] VITALS: TEMP 97.8; O2SAT 97
--- NOTE | 2017-08-09 20:09 | C.PDOC ---
History Of Present Illness 37 y/o female with hx asthma and sinusitis presents to ED with worsening sinus pain and congestion with new dizziness. no fevver or chills. pt having difficulty breathing through nose. Time Seen by Provider: 08/09/17 19:34 Chief Complaint (Nursing): Cough, Cold, Congestion History Per: Patient History/Exam Limitations: no limitations Onset/Duration Of Symptoms: Days (months) Current Symptoms Are (Timing): Worse Location Of Pain: Sinus/es, Headache Sick Contacts (Context): None Associated Symptoms: Sinus Drainage, Nasal Congestion. denies: Fever, Chills Ear Symptoms: Bilateral: None Past Medical History Reviewed: Historical Data, Nursing Documentation, Vital Signs Vital Signs: Last Vital Signs Temp 97.8 F 08/09/17 19:23 Pulse 78 08/09/17 22:44 Resp 18 08/09/17 22:44 BP 121/74 08/09/17 22:44 Pulse Ox 97 08/09/17 22:31 - Medical History PMH: Asthma Surgical History: Appendectomy, Cholecystectomy - [facility] Procedures ASSISTANCE WITH RESPIRATORY VENTILATION, 24-96 HRS, CPAP (04/27/17) Family History: States: Unknown Family Hx - Social History Hx Tobacco Use: No Hx Alcohol Use: No Hx Substance Use: No - Immunization History Hx Tetanus Toxoid Vaccination: No Hx Influenza Vaccination: No Hx Pneumococcal Vaccination: No Review Of Systems Constitutional: Negative for: Fever, Chills ENT: Positive for: Nose Pain, Nose Discharge, Nose Congestion. Negative for: Ear Pain Cardiovascular: Negative for: Chest Pain Respiratory: Negative for: Cough, Shortness of Breath, Wheezing Neurological: Positive for: Headache, Dizziness Physical Exam - Physical Exam Appears: Non-toxic, Other (very uncomfrtable appearing) Skin: Warm, Dry Head: Atraumatic, Normacephalic Eye(s): bilateral: Normal Inspection, EOMI (no nystagmus) Nose: Other (thick yellow discharge ion nares, swollen turbinates, congestion, bilateral frontal sinus tenderness) Oral Mucosa: Moist Lips: Normal Appearing Throat: No Erythema, No Exudate Neck: Supple (no meningeal signs) Chest: No Tenderness Cardiovascular: Rhythm Regular, No Murmur Respiratory: No Decreased Breath Sounds, No Accessory Muscle Use, No Rales, No Stridor, No Wheezing Neurological/Psych: Oriented x3, Normal Speech, Normal Cognition, Normal Cranial Nerves, Normal Motor, Normal Sensation ED Course And Treatment O2 Sat by Pulse Oximetry: 97 Medical Decision Making Medical Decision Making: ct scan showing fernandez paranasal sinusitis; discussed with Dr Rivera;, will start pt on bactrim, send to clinic for referral to see Dr Rivera. plan discussed with patient and , enocuraged to make soonest appt to see Dr Rivera. Disposition Discussed With Dr.: Jd Rivera - Disposition Referrals: [facility] [Outside] [facility] [Outside] Disposition: HOME/ ROUTINE Disposition Time: 22:26 Condition: STABLE Additional Instructions: Por favor, tome Bactrim y sudafed segn lo prescrito. Jing la tom ms pronto en la clnica mariel o llame al servicio de conserjera para obtener milvia referencia para camilo al Dr. Rivera. [place] Tylenol para el dolor. Please take Bactrim and sudafed as prescribed. Make soonest appointment at medical clinic or call stock plan administrator service to get a referral to see Dr Rivera. Take Tylenol for pain. Prescriptions: Pseudoephedrine HCl [Sudafed 12-Hour] 120 mg PO BID #20 tablet.er Sulfamethoxazole/Trimethoprim [Bactrim DS 800 mg-160 mg] 1 tab PO BID #28 tab Instructions: Sinusitis (ED) Forms: Gen Discharge Inst Burundian, [facility] (Burundian) Print Language: TAMAZIGHT - Clinical Impression Clinical Impression: Sinusitis
--- NOTE | 2017-08-09 21:40 | CT ---
EXAM: CT Maxillofacial Sinuses Without Intravenous Contrast EXAM DATE/TIME: Exam ordered 08/09/2017 8:10 PM CLINICAL HISTORY: 37 years old, female; Pain; Headache; Type not specified; Additional info: Worsning frontal headache and dizziness TECHNIQUE: Computed tomography images of the maxillofacial sinuses without intravenous contrast. All CT scans at this facility use one or more dose reduction techniques, viz.: automated exposure control; ma/kV adjustment per patient size (including targeted exams where dose is matched to indication; i.e. head); or iterative reconstruction technique. Coronal and sagittal reformatted images were created and reviewed. COMPARISON: CT - SINUSES W/O CONTRAST 2017-04-27 21:00 FINDINGS: Maxillary sinuses: There is near-complete opacification of both maxillary sinuses with abnormal soft tissue thickening extending into the ethmoid air cells, sphenoid sinuses and the frontal sinuses. Heterogeneous density is noted within the soft tissue opacification of both maxillary sinuses and the frontal sinuses. No air-fluid levels. Sphenoid sinuses: See above. Frontal sinuses: See above. Ethmoid air cells: See above. Nasal cavity/septum: No acute findings. Bones/joints: No acute fracture. No bone erosions noted Soft tissues: See above. IMPRESSION: 1. Og paranasal sinusitis. Heterogeneous density of the mucosal thickening within the left maxillary sinus and the frontal sinuses suggest the possibility of the underlying fungal infection.
[2017-08-09 22:45] VITALS: BP 121/74; PULSE 78; RESP 18
== END 2017-08-09 22:44 | disposition home or self-care (01) ==
LOC: C.ER 18:58
DX: J32.9 Chronic sinusitis, unspecified (principal)

== ENCOUNTER 2017-09-22 12:20 | Emergency (ER) | payer MEDICAID, OTHER ==
[2017-09-22 12:20] VITALS: BMI 32.2
[2017-09-22 12:34] VITALS: PULSE 88; TEMP 98.2
[2017-09-22] MEDS ORDERED: Albuterol 0.083% Inhal Sol (2.5 mg/3 mL) UD INH STA (13:09)
--- NOTE | 2017-09-22 13:09 | C.PDOC ---
History Of Present Illness 37 year old female presents to the ER with a complaint of an itchiness and swelling to the face that has been worsening since yesterday. Patient notes she began using a new face cleanser 3 days ago. Patient has tried taking Claritin at home without significant improvement. She denies tongue/lip swelling, sensation of throat closing up, SOB, or wheezing. Time Seen by Provider: 09/22/17 12:37 Chief Complaint (Nursing): Allergic Reaction History Per: Patient History/Exam Limitations: no limitations Onset/Duration Of Symptoms: Days Current Symptoms Are (Timing): Still Present Possible Cause: Other (Facial cleanser) Associated Symptoms: Swelling, Itching. denies: Dyspnea, Trouble Swallowing Home/EMS Treatment: Other (Claritin) Severity: Mild Past Medical History Reviewed: Historical Data, Nursing Documentation, Vital Signs Vital Signs: Last Vital Signs Temp 98.2 F 09/22/17 12:32 Pulse 88 09/22/17 13:45 Resp 16 09/22/17 13:45 BP 135/85 09/22/17 13:45 Pulse Ox 97 09/22/17 19:21 - Medical History PMH: Asthma Surgical History: Appendectomy, Cholecystectomy - [facility] Procedures ASSISTANCE WITH RESPIRATORY VENTILATION, 24-96 HRS, CPAP (04/27/17) Family History: States: No Known Family Hx - Social History Hx Tobacco Use: No Hx Alcohol Use: No Hx Substance Use: No - Immunization History Hx Tetanus Toxoid Vaccination: No Hx Influenza Vaccination: No Hx Pneumococcal Vaccination: No Review Of Systems Except As Marked, All Systems Reviewed And Found Negative. ENT: Negative for: Mouth Swelling, Throat Pain, Throat Swelling Respiratory: Negative for: Cough, Shortness of Breath, Wheezing Skin: Positive for: Rash Physical Exam - Physical Exam Appears: Well, Non-toxic, No Acute Distress Skin: Warm, Dry, Rash (diffuse macular blanching rash on face, nonvesicular to face) Eye(s): bilateral: Normal Inspection Ear(s): Bilateral: Normal Nose: Normal, No Discharge Oral Mucosa: Moist Tongue: Normal Appearing, No Swelling Lips: Normal Appearing, No Swelling Throat: Normal, No Erythema, No Exudate, No Drooling Neck: Normal, Supple Cardiovascular: Rhythm Regular Respiratory: No Rales, No Rhonchi, No Stridor, Wheezing (scant expiratory wheezing) Neurological/Psych: Oriented x3 ED Course And Treatment O2 Sat by Pulse Oximetry: 97 (Room air) Pulse Ox Interpretation: Normal Progress Note: Patient given PO Prenidsone and Benadryl, and 1 albuterol neb treatment. On reassessment, she reports improvement of symptoms and states she feels better. Rash has improved, and on exm she has good air entry B/L without wheezing. Rxs for prednisone and benadryl given. Patient instructed to not use cleanser again, and follow up with PMD/clinic in 1-2 days. She understands she should return to ED if symptoms worsen. Reassessment Condition: Improved Disposition - Disposition Referrals: [facility] [Outside] Disposition: HOME/ ROUTINE Disposition Time: 13:40 Condition: STABLE Additional Instructions: FOLLOW UP WITH YOUR DOCTOR/CLINIC IN 1-2 DAYS USE MEDICATIONS DIRECTED RETURN TO EMERGENCY ROOM IF SYMPTOMS WORSEN SEGUIMIENTO CON NERI MDICO / CLNICA EN 1-2 VOGEL USE MEDICAMENTOS SEGN LO INDICADO REGRESE AL MARI DE EMERGENCIA SI LOS SNTOMAS EMPEORAN Prescriptions: DiphenhydrAMINE [Benadryl] 25 mg PO Q6 PRN #20 cap PRN Reason: Itching / Pruritus predniSONE [predniSONE Tab] 40 mg PO DAILY #6 tab Instructions: Contact Dermatitis (DC) Forms: [facility] (Tamazight) Print Language: CROATIAN - Clinical Impression Clinical Impression: Allergic reaction, Contact dermatitis - Scribe Statement The provider has reviewed the documentation as recorded by the Scribe Abhijit Reed All medical record entries made by the Scribe were at my direction and personally dictated by me. I have reviewed the chart and agree that the record accurately reflects my personal performance of the history, physical exam, medical decision making, and the department course for this patient. I have also personally directed, reviewed, and agree with the discharge instructions and disposition.
[2017-09-22] MEDS ORDERED: Albuterol 0.083% Inhal Sol (2.5 mg/3 mL) UD ONE (13:20)
[2017-09-22 13:46] VITALS: BP 135/85; RESP 16
[2017-09-22 19:16] VITALS: O2SAT 97
== END 2017-09-22 13:45 | disposition home or self-care (01) ==
LOC: C.ER 12:20
DX: L23.9 Allergic contact dermatitis, unspecified cause (principal)

== ENCOUNTER 2017-10-20 21:34 | Emergency (ER) | payer OTHER ==
[2017-10-20 21:34] VITALS: BMI 32.2
[2017-10-20 21:45] VITALS: TEMP 97.6
[2017-10-20] MEDS ORDERED: Albuterol-Ipratrop 3 mg / 0.5 (3 ml) UD ONE ×2 (21:49→22:31)
[2017-10-20] MEDS ORDERED: Albuterol-Ipratrop 3 mg / 0.5 (3 ml) UD INH STA (22:15)
--- NOTE | 2017-10-20 22:26 | C.PDOC ---
History Of Present Illness 37 year old female with PMHx of asthma presents to the ED c/o increasing wheezing, SOB for the past 2 days. Patient reports she had been hospitalized in the past for asthma on 04/2017. Patient states she used albuterol pump only twice a day because that is "what I was told". Patient denies cats, cigarets, other allergens, CP, nausea, vomit. Time Seen by Provider: 10/20/17 21:49 Chief Complaint (Nursing): Shortness Of Breath History Per: Patient History/Exam Limitations: no limitations Onset/Duration Of Symptoms: Days Current Symptoms Are (Timing): Still Present Initiating Event: Upper Respiratory Illness Quality: Tightness Current Respiratory Medications: See Home Med List Recent travel outside of the [place]: No Additional History Per: Patient Past Medical History Reviewed: Historical Data, Nursing Documentation, Vital Signs Vital Signs: Last Vital Signs Temp 97.6 F 10/20/17 21:39 Pulse 98 H 10/20/17 21:39 Resp 20 10/20/17 22:00 BP 129/89 10/20/17 21:39 Pulse Ox 98 10/20/17 22:29 - Medical History PMH: Asthma Surgical History: Appendectomy, Cholecystectomy - [facility] Procedures ASSISTANCE WITH RESPIRATORY VENTILATION, 24-96 HRS, CPAP (04/27/17) Family History: States: Unknown Family Hx - Social History Hx Tobacco Use: No Hx Alcohol Use: No Hx Substance Use: No - Immunization History Hx Tetanus Toxoid Vaccination: No Hx Influenza Vaccination: No Hx Pneumococcal Vaccination: No Review Of Systems Constitutional: Negative for: Fever, Chills Cardiovascular: Negative for: Chest Pain, Palpitations Respiratory: Positive for: Cough, Shortness of Breath, Wheezing Gastrointestinal: Negative for: Nausea, Vomiting, Abdominal Pain Skin: Negative for: Rash Neurological: Negative for: Weakness, Numbness Physical Exam - Physical Exam Appears: Non-toxic, No Acute Distress Skin: Normal Color, Warm, Dry Head: Atraumatic, Normacephalic Eye(s): bilateral: Normal Inspection Nose: No Discharge Oral Mucosa: Moist Throat: Normal, No Erythema, No Exudate Neck: Normal ROM, Supple Chest: Symmetrical Cardiovascular: Rhythm Regular, No Murmur Respiratory: No Rales, No Rhonchi, Wheezing (mild expiratory), Other (speaking in full sentences) Gastrointestinal/Abdominal: Soft, No Tenderness, No Guarding, No Rebound Extremity: Normal ROM, No Tenderness, No Swelling Neurological/Psych: Oriented x3 Gait: Steady ED Course And Treatment O2 Sat by Pulse Oximetry: 98 (On RA) Pulse Ox Interpretation: Normal Progress Note: pepcid, prednisone 40 PO, duoneb x 2 INH Reevaluation Time: 22:44 Reassessment Condition: Improved Medical Decision Making Medical Decision Making: Impression: SOB, asthma exacerbation Plan: * Albuterol 6 ml INH * Pepcid 20 mg PO * Prednisone 40 mg PO * Nebulizer treatment * asthma exacerbation, quickly reversed poor insight in to MDI/aerochamber use, keeping meds @ home in supply. Disposition Doctor Will See Patient In The: Office Counseled Patient/Family Regarding: Studies Performed, Diagnosis - Disposition Disposition: HOME/ ROUTINE Disposition Time: 22:46 Condition: GOOD Forms: [facility] (Hebrew) - Clinical Impression Clinical Impression: Asthma - Scribe Statement The provider has reviewed the documentation as recorded by the Scribe Terrell Ramirez All medical record entries made by the Michelleibshawn were at my direction and personally dictated by me. I have reviewed the chart and agree that the record accurately reflects my personal performance of the history, physical exam, medical decision making, and the department course for this patient. I have also personally directed, reviewed, and agree with the discharge instructions and disposition.
[2017-10-20 22:48] VITALS: BP 118/82; PULSE 102; RESP 14
[2017-10-20 22:52] VITALS: O2SAT 98
== END 2017-10-20 23:32 | disposition home or self-care (01) ==
LOC: C.ER 21:34
DX: J45.909 Unspecified asthma, uncomplicated (principal)

== ENCOUNTER 2018-02-08 09:34 | Emergency (ER) | payer OTHER ==
[2018-02-08 09:35] VITALS: BMI 32.2
[2018-02-08] MEDS ORDERED: Apap-Butalbital-Caffeine 325-50-40mg Tab PO STA (10:36)
[2018-02-08] MEDS ORDERED: Sodium Chloride 0.9% 1,000 ML IV SCH (10:45)
[2018-02-08] MEDS ORDERED: Apap-Butalbital-Caffeine 325-50-40mg Tab ONE (10:50)
[2018-02-08] MEDS ORDERED: Sodium Chloride 0.9% 1,000 ML ONE (10:50)
[2018-02-08] MEDS ORDERED: Albuterol-Ipratrop 3 mg / 0.5 (3 ml) UD ONE ×3 (11:21→15:03)
[2018-02-08] MEDS: Albuterol-Ipratrop 3 mg / 0.5 (3 ml) UD IH SCH (11:23)
[2018-02-08 11:28] LABS: BASO % 0.6 % (0.0-2.0); EOS % 15.7 % (0.0-4.0); HEMOGLOBIN 15.5 g/dL (11.0-16.0); LYMPH # 2.1 K/uL (1.0-4.3); LYMPH % 33.7 % (20.0-40.0); MEAN CELL VOLUME 92.3 fL (81.0-99.0); MEAN CORPUSCULAR HGB CONC 34.7 g/dL (33.0-37.0); MEAN PLATELET VOLUME 10.2 fL (7.2-11.7); MONO # 0.5 K/uL (0.0-0.8); MONO % 7.7 % (0.0-10.0); NEUT # 2.6 K/uL (1.8-7.0); NEUT % 42.3 % (50.0-75.0); NRBC % 0.1 % (0.0-2.0); RBC 4.84 Mil/uL (3.80-5.20); RED CELL DISTRIBUTION WIDTH 14.1 % (11.5-14.5); WHITE BLOOD COUNT 6.2 K/uL (4.8-10.8)
--- NOTE | 2018-02-08 11:31 | RAD ---
HISTORY: SOB COMPARISON: Chest radiograph dated 06/06/2017 TECHNIQUE: Chest PA and lateral FINDINGS: LUNGS: No active pulmonary disease. PLEURA: No significant pleural effusion identified. No pneumothorax apparent. CARDIOVASCULAR: Normal. OSSEOUS STRUCTURES: No significant abnormalities. VISUALIZED UPPER ABDOMEN: Normal. OTHER FINDINGS: None. IMPRESSION: No active disease.
[2018-02-08 11:33] LABS: HCG,QUALITATIVE URINE NEGATIVE (NEGATIVE)
[2018-02-08 11:36] LABS: SQUAMOUS EPITHIAL 12 /hpf (0-5); URINE BILIRUBIN NEGATIVE (NEGATIVE); URINE BLOOD NEGATIVE (NEGATIVE); URINE CLARITY Hazy (Clear); URINE COLOR Yellow (YELLOW); URINE GLUCOSE (UA) NORMAL (Normal); URINE LEUKOCYTE ESTERASE NEG Leu/uL (Negative); URINE PROTEIN NEGATIVE (NEGATIVE); URINE UROBILINOGEN NORMAL mg/dL (0.2-1.0)
--- NOTE | 2018-02-08 11:36 | C.PDOC ---
History Of Present Illness 37 yo female c/o headache, congestion, and asthma exacerbation. Pt notes productive cough, nasal congestion, and shortness of breath 1+ month. States her asthma flares frequently, over the past few months. She notes using her inhaler every four hours with transient improvement. Pt also notes headache and sinus pressure for 1 month. She had sinus surgery on 01/04/18, and was told symptoms would improve, but she has been experiencing a headache since, and continues to have asthma exacerbation. Patient saw ENT, informed his of the symptoms and has another surgery scheduled at the end of the month. She denies any recent antibiotic or steroid use. She denies any fever, nausea/vomiting, dizziness, chest pain, leg swelling diarrhea or neck pain. 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)) History/Exam Limitations: no limitations Onset/Duration Of Symptoms: Days Current Symptoms Are (Timing): Still Present Severity: Moderate Past Medical History Reviewed: Historical Data, Nursing Documentation, Vital Signs Vital Signs: Last Vital Signs Temp 98.0 F 02/08/18 15:42 Pulse 125 H 02/08/18 16:03 Resp 20 02/08/18 16:03 BP 131/54 L 02/08/18 16:03 Pulse Ox 96 02/08/18 17:08 - Medical History PMH: Asthma Surgical History: Appendectomy, Cholecystectomy - [facility] Procedures ASSISTANCE WITH RESPIRATORY VENTILATION, 24-96 HRS, CPAP (04/27/17) Family History: States: No Known Family Hx - Social History Hx Tobacco Use: No Hx Alcohol Use: No Hx Substance Use: No - Immunization History Hx Tetanus Toxoid Vaccination: No Hx Influenza Vaccination: No Hx Pneumococcal Vaccination: No Review Of Systems Constitutional: Negative for: Fever, Chills ENT: Positive for: Nose Discharge, Nose Congestion Cardiovascular: Negative for: Chest Pain, Palpitations Respiratory: Positive for: Cough, Sputum Gastrointestinal: Negative for: Nausea, Vomiting, Abdominal Pain Musculoskeletal: Negative for: Back Pain Skin: Negative for: Rash Neurological: Negative for: Weakness, Numbness, Headache, Dizziness Physical Exam - Physical Exam Appears: Non-toxic, No Acute Distress Skin: Normal Color, Warm, Dry, No Rash Head: Atraumatic, Normacephalic, Tenderness (sinus) Eye(s): bilateral: Normal Inspection, PERRL, EOMI Ear(s): Bilateral: Normal Nose: Normal Oral Mucosa: Moist Lips: Normal Appearing Throat: Normal, No Erythema, No Exudate Neck: Normal ROM, Supple ((-) meningeal signs) Chest: Symmetrical Cardiovascular: Rhythm Regular Respiratory: No Accessory Muscle Use, No Rales, No Rhonchi, Wheezing (B/L expiratory) Gastrointestinal/Abdominal: Soft, No Tenderness, No Guarding, No Rebound Extremity: Normal ROM, No Deformity, No Swelling Neurological/Psych: Oriented x3, Normal Speech ED Course And Treatment - Laboratory Results Result Diagrams: 02/08/18 11:21 02/08/18 11:21 O2 Sat by Pulse Oximetry: 96 (RA) Pulse Ox Interpretation: Normal Progress Note: CT Head, EKG, bloodwork, Chest XR and UA ordered and reviewed. Patient treated with duoneb, IVF, Mag sulfate, fioricet and solu-medrol. On re- evaluation, pt continues to have wheezing, additional duoneb ordered. On re- eval, pt continues to wheeze, will order another duoneb. On reassessment: pts wheezing has markedly improved, but continues to have scant wheezing, admission offered to pt, but states she has child at home and cannot stay. She will be discharged for outpatient f.u with ENT in 1-2 days. Pt instructed to return for any new or worsening symptoms. Critical Care Time - Critical Care Note Total Time (in mins): 30 Documented critical care: time excludes all time spent performing seperately billable procedures. Disposition - Disposition Referrals: Elías Thorpe MD [Medical Doctor] - Disposition: HOME/ ROUTINE Disposition Time: 12:53 Condition: STABLE Additional Instructions: Follow up with Dr Thorpe in 1-2 days. Return to ER if symptoms persist or worsen. Jing un seguimiento con el Dr. Thorpe en 1-2 segovia. Regrese a la yodit de emergencias si los sntomas persisten o empeoran. Prescriptions: Albuterol 0.083% [Albuterol 0.083% Inhal Jessica (2.5 mg/3 ml) UD] 2.5 mg IH Q6 PRN #30 neb PRN Reason: Shortness Of Breath Amoxicillin/Clavulanate [Augmentin 875 MG-125 MG] 1 tab PO BID #14 tab Fluticasone Nasal [Flonase] 1 actuation NS DAILY #1 spr Nebulizer [Aerosol Therapy Nebulizer] 1 dev XX PRN PRN #1 dev PRN Reason: Shortness Of Breath predniSONE [Prednisone] 40 mg PO DAILY #8 tab Instructions: Sinusitis, Adult (DC) Forms: [employer] (Cook Islander), (AMA) Informed Refusal Print Language: UKRAINIAN - Clinical Impression Clinical Impression: Sinusitis, Asthma exacerbation - Scribe Statement The provider has reviewed the documentation as recorded by the Scribe (Johanna Kruse) All medical record entries made by the Scribe were at my direction and personally dictated by me. I have reviewed the chart and agree that the record accurately reflects my personal performance of the history, physical exam, medical decision making, and the department course for this patient. I have also personally directed, reviewed, and agree with the discharge instructions and disposition.
[2018-02-08 11:43] LABS: ALB/GLOB RATIO 1.5 (1.0-2.1); ALBUMIN 4.4 g/dL (3.5-5.0); ALT/SGPT 21 U/L (9-52); AST/SGOT 25 U/L (14-36); BLOOD UREA NITROGEN 12 mg/dL (7-17); CALCIUM 9.1 mg/dl (8.6-10.4); GFR AFRICAN-AMERICAN > 60; GFR NON-AFRICAN AMERICAN > 60; LIPASE 42 U/L (23-300)
[2018-02-08 11:53] LABS: CK-MB 0.77 ng/mL (0.0-3.38)
--- NOTE | 2018-02-08 11:54 | CT ---
PROCEDURE: CT HEAD WITHOUT CONTRAST. HISTORY: Headache. Evaluate for hemorrhage. COMPARISON: None available. TECHNIQUE: Axial computed tomography images were obtained through the head/brain without intravenous contrast. Radiation dose: Total exam DLP = 707 mGy-cm. This CT exam was performed using one or more of the following dose reduction techniques: Automated exposure control, adjustment of the mA and/or kV according to patient size, and/or use of iterative reconstruction technique. FINDINGS: HEMORRHAGE: No intracranial hemorrhage. BRAIN: No mass effect or edema. No atrophy or chronic microvascular ischemic changes. VENTRICLES: Unremarkable. No hydrocephalus. CALVARIUM: Unremarkable. PARANASAL SINUSES: Complete/ near complete opacification of the visualized ethmoid air cells, sphenoid sinus, and frontal sinus. MASTOID AIR CELLS: Unremarkable as visualized. No inflammatory changes. OTHER FINDINGS: None. IMPRESSION: Severe sinus mucosal disease as above. No acute intracranial abnormality. If symptoms persists, consider MRI.
[2018-02-08] MEDS ORDERED: Albuterol-Ipratrop 3 mg / 0.5 (3 ml) UD INH STA ×2 (13:01→15:06)
[2018-02-08] MEDS ORDERED: Magnesium Sulfate 1 gm in D5W 1 GM/100 ML BAG IV ONE (14:06)
[2018-02-08] MEDS ORDERED: Magnesium Sulfate 1 gm in D5W 1 GM/100 ML BAG IVPB ONE (14:52)
[2018-02-08 15:43] VITALS: RESP 20; TEMP 98
[2018-02-08 16:04] VITALS: BP 131/54; PULSE 125; O2SAT 96
== END 2018-02-08 16:04 | disposition home or self-care (01) ==
LOC: C.ER 09:34
DX: J45.901 Unspecified asthma with (acute) exacerbation (principal); J32.9 Chronic sinusitis, unspecified
CPT/HCPCS: 70450; 71046; 80053; 81001; 82550; 82553; 83690; 84484; 84703; 85025; 85378; 94640; 96361; 96365; 96375; 99285; J2930; J3475; J7030

== ENCOUNTER 2018-02-20 11:35 | Emergency (ER) | payer OTHER ==
[2018-02-20 11:40] VITALS: BMI 29.8
[2018-02-20 11:42] VITALS: TEMP 98.9
[2018-02-20] MEDS ORDERED: Albuterol-Ipratrop 3 mg / 0.5 (3 ml) UD ONE ×3 (11:47→12:02)
[2018-02-20] MEDS ORDERED: Sodium Chloride 0.9% 1,000 ML IV ONE (11:57)
[2018-02-20] MEDS ORDERED: Albuterol-Ipratrop 3 mg / 0.5 (3 ml) UD IH STA (11:59)
[2018-02-20] MEDS ORDERED: Promethazine/Cod 6.25mg-10mg/5ml Syr UD PO STA (12:00)
[2018-02-20] MEDS ORDERED: Promethazine/Cod 6.25mg-10mg/5ml Syr UD ONE (12:17)
[2018-02-20 12:21] LABS: BASO # 0.1 K/uL (0.0-0.2); BASO % 0.9 % (0.0-2.0); EOS # 0.6 K/uL (0.0-0.7); EOS % 8.8 % (0.0-4.0); HEMOGLOBIN 15.9 g/dL (11.0-16.0); LYMPH # 4.3 K/uL (1.0-4.3); LYMPH % 59.9 % (20.0-40.0); MEAN CORPUSCULAR HEMOGLOBIN 32.1 pg (27.0-31.0); MEAN CORPUSCULAR HGB CONC 34.9 g/dL (33.0-37.0); MONO # 0.5 K/uL (0.0-0.8); MONO % 6.5 % (0.0-10.0); NEUT # 1.7 K/uL (1.8-7.0); NEUT % 23.9 % (50.0-75.0); NRBC % 0.1 % (0.0-2.0); PLATELET COUNT 237 K/uL (130-400); RBC 4.96 Mil/uL (3.80-5.20); RED CELL DISTRIBUTION WIDTH 13.4 % (11.5-14.5); WHITE BLOOD COUNT 7.2 K/uL (4.8-10.8)
--- NOTE | 2018-02-20 12:27 | C.PDOC ---
History Of Present Illness 37 year old female w/PMHx of asthma, no hx intubation, no recent (5 yrs) ICU admission, comes in for evaluation of cold sx for past 2 weeks associated with chest tightness, productive cough with yellow sputum, intermittent wheezing. patient reports, was seen here in ED 10 days ago with the same symptoms, received steroids treatment. Pt did F/u with Pulmology who continue Symbicort. Pt reports, no significant improvement. Since last night, was unable to sleep due to continuous cough. At present time, noted productive cough with clear sputum. Otherwise, Patient denies fever, chills, sore throat, drooling, neck pain, CP, palpitation, diaphoresis, abd. pain, nausea and vomiting, back pain, UTI sx. Ambulate to ED. Time Seen by Provider: 02/20/18 11:45 Chief Complaint (Nursing): Shortness Of Breath History Per: Patient History/Exam Limitations: no limitations Onset/Duration Of Symptoms: Days Current Symptoms Are (Timing): Still Present Past Medical History Reviewed: Historical Data, Nursing Documentation, Vital Signs Vital Signs: Last Vital Signs Temp 98.9 F 02/20/18 11:40 Pulse 89 02/20/18 13:59 Resp 18 02/20/18 13:59 BP 121/82 02/20/18 13:59 Pulse Ox 95 02/20/18 15:51 - Medical History PMH: Asthma Surgical History: Appendectomy, Cholecystectomy - [facility] Procedures ASSISTANCE WITH RESPIRATORY VENTILATION, 24-96 HRS, CPAP (04/27/17) Family History: States: Unknown Family Hx - Social History Hx Tobacco Use: No Hx Alcohol Use: No Hx Substance Use: No - Immunization History Hx Tetanus Toxoid Vaccination: No Hx Influenza Vaccination: No Hx Pneumococcal Vaccination: No Review Of Systems Except As Marked, All Systems Reviewed And Found Negative. Constitutional: Negative for: Fever Cardiovascular: Positive for: Other (chest tightness) Respiratory: Positive for: Cough (with yellow sputum), Wheezing Gastrointestinal: Negative for: Nausea, Vomiting Physical Exam - Physical Exam Appears: Well, Non-toxic, No Acute Distress, Other (occasional productive cough with clear sputum noted) Skin: Normal Color, Warm, No Rash, No Ecchymosis Head: Normacephalic Eye(s): bilateral: PERRL Ear(s): Bilateral: Normal Nose: No Flaring, No Discharge Oral Mucosa: Moist, No Drooling Throat: No Erythema, No Drooling Neck: Trachea Midline, Supple Cardiovascular: Rhythm Regular, No Murmur, No JVD, Other ((-) caorit bruits B/L) Respiratory: No Decreased Breath Sounds, No Accessory Muscle Use, No Rales, No Rhonchi, Wheezing (scattered expiratory bilateral ) Gastrointestinal/Abdominal: Soft, No Tenderness, No Distention, No Guarding, No Rebound Back: No CVA Tenderness Extremity: Normal ROM (x4), No Pedal Edema, No Deformity, No Swelling Neurological/Psych: Oriented x3, Normal Speech, Normal Motor, Normal Sensation, Normal Reflexes ED Course And Treatment - Laboratory Results Result Diagrams: 02/20/18 12:16 02/20/18 12:16 Lab Interpretation: Normal Urine POC: Negative O2 Sat by Pulse Oximetry: 95 (RA) Pulse Ox Interpretation: Normal - Radiology CXR: Interpreted by Me, Viewed By Me CXR Interpretation: Yes: No Acute Disease Progress Note: Imperssion: 37 year old female coughing with yellow sputum and wheezing. Plans: -- blood work. -- CXR. -- Albuterol. -- codeine. -- SOLU - medrol. -- IV fluids. -- Zofran. -- Nebulizer treatment. -- UA. Pt was OBS in ED forf 2 hours and reports moderate improvement in sx. On re-eval, pt appears comofrable, no cough noted in ED now. Pt is afebrile, hemodynamically stable. Non-toxic. PulseOx 100% RA Tolerate PO well in ED. ENT: no acute findings. Uvula midline, no edema. Neck: Supple, (-) JVD. Lungs: CTA B/L, BS equal B/L. CVS: (+)S1S2, reg. Abd: Soft, non-tender. Neurologically intact. CXR review and appears normal, compare to previous imaging. Blodo work review- no acute findings, no leukocytosis or left shift. Pt has clinical findings c/w asthma exacerbation, bronchitis. Pt advised. ref. to f/u with PMD, Pulm in 1- 2 days for re-evaluation. return to ED if anyw orsening or new changes. Disposition Counseled Patient/Family Regarding: Studies Performed, Diagnosis, Need For Followup, Rx Given - Disposition Referrals: Janae Guillory MD [Staff Provider] - Disposition: HOME/ ROUTINE Disposition Time: 13:22 Condition: STABLE Additional Instructions: Encourage fluids Nebulizer treatment every 4 hours for 2-3 days take medication as prescribed Follow up with PMD, Pulmonology in 1-2 days for re-evaluation. return to ED if any worsening or new changes. 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 - Scribe Statement The provider has reviewed the documentation as recorded by the Chris Mcdaniels Do All medical record entries made by the Scribshawn were at my direction and personally dictated by me. I have reviewed the chart and agree that the record accurately reflects my personal performance of the history, physical exam, medical decision making, and the department course for this patient. I have also personally directed, reviewed, and agree with the discharge instructions and disposition.
[2018-02-20 12:54] LABS: CALCIUM 9.6 mg/dl (8.6-10.4)
[2018-02-20 12:55] LABS: EOSINOPHIL 11 % (0-4); LYMPHOCYTE 54 % (20-40); MONOCYTE 3 % (0-10); NEUTROPHIL 23 % (50-75); PLATELET ESTIMATE NORMAL (NORMAL); REACTIVE LYMPHOCYTES 9 % (0-0); TOTAL CELLS COUNTED 100
[2018-02-20 13:02] LABS: BLOOD UREA NITROGEN 10 mg/dL (7-17); GFR AFRICAN-AMERICAN > 60; GFR NON-AFRICAN AMERICAN > 60
[2018-02-20 14:00] VITALS: BP 121/82; PULSE 89; RESP 18
[2018-02-20 14:02] VITALS: O2SAT 95
--- NOTE | 2018-02-20 18:10 | RAD ---
Date of service: 02/20/2018 HISTORY: SOB COMPARISON: No prior. TECHNIQUE: Chest PA and lateral FINDINGS: LUNGS: No active pulmonary disease. Trace linear gross is noted right base once again. PLEURA: No significant pleural effusion identified. No pneumothorax apparent. CARDIOVASCULAR: Normal. OSSEOUS STRUCTURES: No significant abnormalities. VISUALIZED UPPER ABDOMEN: Normal. OTHER FINDINGS: None. IMPRESSION: No interval acute cardiopulmonary disease appreciated.
== END 2018-02-20 14:14 | disposition home or self-care (01) ==
LOC: C.ER 11:35
DX: J45.901 Unspecified asthma with (acute) exacerbation (principal)
CPT/HCPCS: 71046; 80048; 85025; 96361; 96374; 96375; 99283; J2405; J2930; J7030

== ENCOUNTER 2018-03-09 12:28 | Observation (INO) | payer OTHER ==
[2018-03-09 12:29] VITALS: BMI 29.8
[2018-03-09] MEDS ORDERED: Albuterol-Ipratrop 3 mg / 0.5 (3 ml) UD INH STA ×2 (13:29→14:13)
[2018-03-09] MEDS ORDERED: Albuterol-Ipratrop 3 mg / 0.5 (3 ml) UD ONE (13:39)
[2018-03-09] MEDS ORDERED: Acetaminophen-Codeine 300/30 mg Tab PO ONE (14:03)
[2018-03-09] MEDS ORDERED: MethylPREDNISolone 40 mg Vial IVP STA (14:13)
--- NOTE | 2018-03-09 14:17 | C.PDOC ---
History Of Present Illness 37 year old female, whose PMHx includes asthma (no intubations) and sinus problems, presents to the ED for evaluation of persistent shortness of breath, cough productive of beige sputum and rhinorrhea. Patient was evaluated by Dr. Gayle two weeks ago, and was told she had an infection. She was prescribed antibiotics (name unknown), which she completed without resolution of symptoms. Patient denies fever, chills, chest pain. Time Seen by Provider: 03/09/18 12:52 Chief Complaint (Nursing): Cough, Cold, Congestion History Per: Patient History/Exam Limitations: no limitations Onset/Duration Of Symptoms: Days, Persistent Current Symptoms Are (Timing): Still Present Sick Contacts (Context): None Associated Symptoms: Cough, Sputum. denies: Fever, Chills Additional History Per: Patient Past Medical History Reviewed: Historical Data, Nursing Documentation, Vital Signs Vital Signs: Last Vital Signs Temp 98.2 F 03/09/18 20:16 Pulse 100 H 03/09/18 20:16 Resp 20 03/09/18 20:16 BP 112/76 03/09/18 20:16 Pulse Ox 94 L 03/09/18 22:39 - Medical History PMH: Asthma Surgical History: Appendectomy, Cholecystectomy - [facility] Procedures ASSISTANCE WITH RESPIRATORY VENTILATION, 24-96 HRS, CPAP (04/27/17) Family History: States: Unknown Family Hx - Social History Hx Tobacco Use: No Hx Alcohol Use: No Hx Substance Use: No - Immunization History Hx Tetanus Toxoid Vaccination: No Hx Influenza Vaccination: No Hx Pneumococcal Vaccination: No Review Of Systems Constitutional: Negative for: Fever, Chills Cardiovascular: Negative for: Chest Pain Respiratory: Positive for: Cough, Shortness of Breath, Sputum Physical Exam - Physical Exam Appears: Non-toxic, No Acute Distress Skin: Normal Color, Warm, Dry Head: Atraumatic, Normacephalic, Other (sinus tenderness frontal bilateral) Eye(s): bilateral: Normal Inspection Ear(s): Bilateral: Normal Nose: Other (significant nasal congestion and rhinorrhea ) Oral Mucosa: Moist Throat: Normal, No Erythema, No Exudate Neck: Supple Chest: Symmetrical, No Deformity, No Tenderness Cardiovascular: Rhythm Regular, No Murmur Respiratory: No Rales, No Rhonchi, Wheezing (bilateral ) Gastrointestinal/Abdominal: Soft, No Tenderness Extremity: Normal ROM, Capillary Refill (less than 2 seconds ) Neurological/Psych: Oriented x3, Normal Speech, Normal Cognition ED Course And Treatment - Laboratory Results Result Diagrams: 03/09/18 14:53 03/09/18 15:29 O2 Sat by Pulse Oximetry: 94 - Other Rad CXR X-Ray: Interpreted by Me, Viewed By Me, Read By Radiologist Interpretation: HISTORY: SOB. COMPARISON: February 21 1008. TECHNIQUE: Chest PA and lateral. FINDINGS: LUNGS: The linear right lung base discoid to subsegmental atelectasis is slightly more conspicuous on this exam. . Findings are projecting posteriorly on the lateral view. No interval other pathology noted. Possible tiny granulomatous changes mid and upper lung zones bilaterally. PLEURA: No significant pleural effusion identified. No pneumothorax apparent. CARDIOVASCULAR: Normal. OSSEOUS STRUCTURES: No significant abnormalities. VISUALIZED UPPER ABDOMEN: Normal. OTHER FINDINGS: None. IMPRESSION: Minimal increase conspicuity at discoid to subsegmental right lung base atelectasis. Other findings -as above. - CT Scan/US CT Sinuses Other Rad Studies (CT/US): Interpreted By Me, Read By Radiologist, Radiology Report Reviewed CT/US Interpretation: PROCEDURE: CT SINUSES WITHOUT CONTRAST. HISTORY: persistent nasal congestion s/p sinus procedure. COMPARISON: None available. TECHNIQUE: Contiguous axial CT images of the paranasal sinuses were obtained. Coronal and sagittal reformats were generated. Radiation dose: Total exam DLP = 625.21 mGy-cm. This CT exam was performed using one or more of the following dose reduction techniques: Automated exposure control, adjustment of the mA and/ or kV according to patient size, and/or use of iterative reconstruction technique. FINDINGS: FRONTAL SINUSES: Completely opacified. ETHMOID SINUSES : Nearly completely opacified. SPHENOID SINUSES: Completely opacified. MAXILLARY SINUSES: Nearly completely opacified. SINUS DRAINAGE: Osteomeatal complexes, frontal recesses and sphenoethmoid recesses opacified. All sinus drainage pathways are obstructed. NASAL SEPTUM: No significant deviation. No destructive lesion. MASS: None. SKULL BASE: Unremarkable. TEMPORAL BONES: Middle ears and mastoid grossly unremarkable. OTHER FINDINGS: Patient appears recess of prior bilateral nasal antrostomy. Clinically correlate further. . IMPRESSION: Pansinusitis identified. Question of prior bilateral nasal antrostomy surgery in the past. Clinically correlate further. Medical Decision Making Medical Decision Making: Impression: 37 year old female with shortness of breath, cough, and rhinorrhea Plan: * bloodwork * CXR * Albuterol INH * Solu-Medrol IVP * reassess and disposition Progress: Case discussed with Dr. Gayle. Given that this is patient's third visit regarding the same complaint within the past month, Dr. Gayle recommends admission, steroid treatment and CT sinus scan. Bloodwork and CXR ordered and reviewed. Albuterol INH and Solu-Medrol IVP given. [address] Terrazas. will admit to her service. will hold off on iv antibiotics until ct sinus resulted. 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 - Scribe Statement The provider has reviewed the documentation as recorded by the Scribe (Talia Viveros) All medical record entries made by the Scribe were at my direction and personally dictated by me. I have reviewed the chart and agree that the record accurately reflects my personal performance of the history, physical exam, medical decision making, and the department course for this patient. I have also personally directed, reviewed, and agree with the discharge instructions and disposition.
[2018-03-09 15:01] LABS: BASO # 0.1 K/uL (0.0-0.2); BASO % 1.2 % (0.0-2.0); EOS # 0.5 K/uL (0.0-0.7); EOS % 10.5 % (0.0-4.0); HEMOGLOBIN 15.8 g/dL (11.0-16.0); LYMPH # 2.9 K/uL (1.0-4.3); LYMPH % 58.5 % (20.0-40.0); MEAN CELL VOLUME 92.9 fL (81.0-99.0); MEAN CORPUSCULAR HEMOGLOBIN 31.9 pg (27.0-31.0); MEAN CORPUSCULAR HGB CONC 34.4 g/dL (33.0-37.0); MEAN PLATELET VOLUME 10.3 fL (7.2-11.7); MONO # 0.4 K/uL (0.0-0.8); MONO % 8.4 % (0.0-10.0); NEUT # 1.1 K/uL (1.8-7.0); NEUT % 21.4 % (50.0-75.0); RBC 4.93 Mil/uL (3.80-5.20); RED CELL DISTRIBUTION WIDTH 13.9 % (11.5-14.5)
--- NOTE | 2018-03-09 15:26 | RAD ---
Date of service: 03/09/2018 HISTORY: SOB COMPARISON: February 21 1008 TECHNIQUE: Chest PA and lateral FINDINGS: LUNGS: The linear right lung base discoid to subsegmental atelectasis is slightly more conspicuous on this exam. . Findings are projecting posteriorly on the lateral view. No interval other pathology noted. Possible tiny granulomatous changes mid and upper lung zones bilaterally. PLEURA: No significant pleural effusion identified. No pneumothorax apparent. CARDIOVASCULAR: Normal. OSSEOUS STRUCTURES: No significant abnormalities. VISUALIZED UPPER ABDOMEN: Normal. OTHER FINDINGS: None. IMPRESSION: Minimal increase conspicuity at discoid to subsegmental right lung base atelectasis Other findings -as above.
[2018-03-09 15:56] LABS: ALB/GLOB RATIO 1.2 (1.0-2.1); ALBUMIN 3.2 g/dL (3.5-5.0); ALT/SGPT 29 U/L (9-52); AST/SGOT 16 U/L (14-36); BLOOD UREA NITROGEN 7 mg/dL (7-17); CALCIUM 7.3 mg/dl (8.6-10.4); GFR AFRICAN-AMERICAN > 60; GFR NON-AFRICAN AMERICAN > 60
--- NOTE | 2018-03-09 16:06 | CP.PCM.HP ---
History of Present Illness - History of Present Illness History of Present Illness: History and Physical: Dr. Terrazas's Hospitalist Service CC: Vomiting and phlegm for 5 months HPI: 37 year old female with a past medical history of asthma comes in today complaining of vomiting and phlegm production for the past five months. The patient states the phlegm began five month ago and the vomiting began around one week ago. The patient describes the vomit as pheglm with a yellowish-green production. Of note, the patient was discharged from [facility] recently 05/03/17 when she treated for sinusitis and acute asthma exacerbation. Patient states she completed all of the antibiotics prescribed, however cannot recall the names of the medications. Patient was seen by Dr. Rivera who referred her to a Dr. Thorpe in [place] for two procedures completed in January 2018 and January 2018. Patient states she has a follow up with specialist. Patient denies any recent travel, changes in vision, dizziness, new foods in her diet, syncopal episodes, shortness of breath, palpitations, lower extremity swelling, ear pain , or any other complaints. ED Course: Duoneb 3ml INH, Methylprednisone 125mg IVP PMD: Dr. Esteban Pulmonary: Dr. Gayle ENT: Dr. Rivera PMHx: asthma PSHx: hysterectomy 2010, cholecystectomy 2012, appendectomy 2013 FMHx: mother, aunt and son has asthma Social: denied tobacco use but grew up with second hand smoke from mother and current coworkers, denied ETOH or drugs. 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 absent: Chills, Daytime Sleepiness, Night Sweats, Snoring, Weakness - EENT Eyes: absent: Change in Vision, Discharge, Dry Eye, Itchy Eyes, Loss of Peripheral Vision, Requires Corrective Lenses, Sees Flashes, Other Visual Disturbances, Loss of Vision Ears: absent: Ear Discharge, Ear Pain, Disequilibrium, Dizziness Nose/Mouth/Throat: Nasal Congestion, Sinus Pain, Sinus Pressure. absent: Epistaxis, Nose Pain, Bleeding Gums, Dry Mouth, Dysphagia, Mouth Pain, Odynophagia - Cardiovascular Cardiovascular: absent: Chest Pain, Claudication, Irregular Heart Rhythm, Leg Edema, Palpitations, Pedal Edema, Syncope - Respiratory Respiratory: Cough, Wheezing, Excessive Mucous Production. absent: Dyspnea, Hemoptysis, Pain on Inspiration, Change in Mucous Color - Gastrointestinal Gastrointestinal: Nausea, Vomiting. absent: Belching, Fecal Incontinence, Loose Stools, Melena - Genitourinary Genitourinary: absent: Change in Urinary Stream, Pyuria, Nocturia, Urinary Hesitance, Freq UTI - Musculoskeletal Musculoskeletal: absent: Arthralgias, Atrophy, Limited Range of Motion, Myalgias , Tingling - Neurological Neurological: absent: Abnormal Hearing, Burning Sensations, Numbness, Loss of Vision, Tremor, Vertigo, Weakness - Psychiatric Psychiatric: absent: Anhedonia, Anxiety, Behavioral Changes, Change in Appetite , Depression, Hopelessness, Panic Attacks - Endocrine Endocrine: absent: Polydipsia, Polyphagia, Polyuria - Hematologic/Lymphatic Hematologic: absent: Easy Bleeding, Easy Bruising Past Patient History - Infectious Disease Hx of Infectious Diseases: None - Past Medical History & Family History Past Medical History?: Yes - Past Social History Smoking Status: Never Smoked - PULMONARY Hx Asthma: Yes - MUSCULOSKELETAL/RHEUMATOLOGICAL Hx Falls: No - GASTROINTESTINAL Other/Comment: appendectomy/gall bladder remova/ - PSYCHIATRIC Hx Substance Use: No - SURGICAL HISTORY Hx Appendectomy: Yes Hx Cholecystectomy: Yes - ANESTHESIA Hx Anesthesia: Yes Hx Anesthesia Reactions: Yes (HEADACHE) Meds Allergies/Adverse Reactions: Allergies Allergy/AdvReac Type Severity Reaction Status Date / Time ibuprofen [From Motrin] Allergy SHORTNESS Verified 03/09/18 12:37 OF BREATH Physical Exam - Head Exam Head Exam: ATRAUMATIC, NORMAL INSPECTION, NORMOCEPHALIC - Eye Exam Eye Exam: EOMI, Normal appearance, Periorbital tenderness, PERRL Pupil Exam: NORMAL ACCOMODATION, PERRL. absent: Irregular, Unequal - ENT Exam ENT Exam: Mucous Membranes Moist, Normal Oropharynx - Neck Exam Neck exam: Positive for: Normal Inspection. Negative for: Meningismus, Thyromegaly - Respiratory Exam Respiratory Exam: Decreased Breath Sounds, Wheezes. absent: Accessory Muscle Use, Clear to Auscultation Bilateral, Prolonged Expiratory Phase, Respiratory Distress - Cardiovascular Exam Cardiovascular Exam: REGULAR RHYTHM, +S1, +S2. absent: Bradycardia, Diastolic murmur, RRR - GI/Abdominal Exam GI & Abdominal Exam: Normal Bowel Sounds, Soft. absent: Hypoactive Bowel Sounds , Organomegaly, Tenderness - Extremities Exam Extremities exam: Positive for: full ROM, normal inspection. Negative for: joint swelling, pedal edema, tenderness - Back Exam Back exam: NORMAL INSPECTION. absent: CVA tenderness (L), CVA tenderness (R), paraspinal tenderness - Neurological Exam Neurological exam: Alert, CN II-XII Intact, Oriented x3 - Psychiatric Exam Psychiatric exam: Normal Affect, Normal Mood - Skin Skin Exam: Dry, Intact, Normal Color, Warm Results - Vital Signs Recent Vital Signs: Last Vital Signs Temp 98.4 F 03/09/18 12:38 Pulse 84 03/09/18 12:38 Resp 18 03/09/18 12:38 BP 118/86 03/09/18 12:38 Pulse Ox 94 L 03/09/18 15:53 - Labs Result Diagrams: 03/09/18 14:53 03/09/18 15:29 Labs: Laboratory Results - last 24 hr 03/09/18 03/09/18 14:53 15:29 WBC 5.0 RBC 4.93 Hgb 15.8 Hct 45.8 MCV 92.9 MCH 31.9 H MCHC 34.4 RDW 13.9 Plt Count 246 MPV 10.3 Neut % (Auto) 21.4 L Lymph % (Auto) 58.5 H [place] % (Auto) 8.4 Eos % (Auto) 10.5 H Baso % (Auto) 1.2 Neut # (Auto) 1.1 L Lymph # (Auto) 2.9 [place] # (Auto) 0.4 Eos # (Auto) 0.5 Baso # (Auto) 0.1 Sodium 142 Potassium 2.8 L Chloride 108 H Carbon Dioxide 22 Anion Gap 15 BUN 7 Creatinine 0.5 L Est GFR ( Amer) > 60 Est GFR (Non-Af Amer) > 60 Random Glucose 74 Calcium 7.3 L Total Bilirubin 0.4 AST 16 ALT 29 Alkaline Phosphatase 59 Total Protein 5.7 L Albumin 3.2 L D Globulin 2.6 Albumin/Globulin Ratio 1.2 Assessment & Plan - Assessment and Plan (Free Text) Assessment: 37 year old female with a past medical history of asthma comes in today complaining of vomiting and phlegm production for the past five months admitted or chronic sinusitis and asthma exacerbation. Plan: Asthma exacerbation Chest xray:increased conspicity at discoid to subsegmental right lung base atelectasis -Pulmonary consulted Dr. Gayle. Help appreciated. -severe persistent (day symptoms for past week requiring nebulizer) -Peak flow daily -Repeat CXR in A.M. -ABG ordered. Will f/u with results Medications: IV solumedrol 20mg IVP q12 Mucinex 600mg PO BID Duonebs 3ml inh rq6 kody Duonebs 3ml inh rq4 PRN Chronic Sinusitis Sinus CT scan(03/09/2018): :Pansinusitis identified. Question of prior bilateral nasal antrostomy surgery in the past. Clinically correlate. -Status post [address] Thorpe in [place]: January 2018 and January 2018 -Persistent symptoms in spite prior treatment -Failed outpatient treatment. -Prior ED visit on 05/2017 -ENT evaluation Dr. Rivera consulted. Help appreciated. -Blood cultures ordered. Will f/u with results -Sputum cultures ordered. Will f/u with results. Medications: Doxycycline 100mg IV Q12 Headache Likely secondary to sinus infection. -Tylenol 650mg PO Q6 PRN Hypokalemia -2.8 Upon admission -Repleted -f/u cbc @10p.m. -Will monitor with serial CMP'S Nausea/Vomiting -Zofran 4mg IVP q6 prn PPX Protonix 40mg PO Daily Heparin 5000 units SC Q12 Florastlida Núñez, PGY-2
--- NOTE | 2018-03-09 16:16 | CT ---
Date of service: 03/09/2018 PROCEDURE: CT SINUSES WITHOUT CONTRAST HISTORY: persistent nasal congestion s/p sinus procedure COMPARISON: None available. TECHNIQUE: Contiguous axial CT images of the paranasal sinuses were obtained. Coronal and sagittal reformats were generated. Radiation dose: Total exam DLP = 625.21 mGy-cm. This CT exam was performed using one or more of the following dose reduction techniques: Automated exposure control, adjustment of the mA and/or kV according to patient size, and/or use of iterative reconstruction technique. FINDINGS: FRONTAL SINUSES: Completely opacified. ETHMOID SINUSES: Nearly completely opacified. SPHENOID SINUSES: Completely opacified. MAXILLARY SINUSES: Nearly completely opacified. SINUS DRAINAGE: Osteomeatal complexes, frontal recesses and sphenoethmoid recesses opacified. All sinus drainage pathways are obstructed. NASAL SEPTUM: No significant deviation. No destructive lesion. MASS: None. SKULL BASE: Unremarkable. TEMPORAL BONES: Middle ears and mastoid grossly unremarkable. OTHER FINDINGS: Patient appears recess of prior bilateral nasal antrostomy. Clinically correlate further. . IMPRESSION: Pansinusitis identified. Question of prior bilateral nasal antrostomy surgery in the past. Clinically correlate further.
[2018-03-09] MEDS ORDERED: Potassium Chloride 20 mEq 0 ML ONE (16:41)
[2018-03-09] MEDS ORDERED: Albuterol-Ipratrop 3 mg / 0.5 (3 ml) UD INH PRN (16:48)
[2018-03-09] MEDS ORDERED: Potassium Chloride 20 mEq 100 ML ONE (19:17)
[2018-03-09] MEDS: guaiFENesin 600 mg ER Tab PO SCH (19:17)
[2018-03-09] MEDS: Pantoprazole 40 mg EC Tab PO SCH (19:17)
[2018-03-09] MEDS: Saccharomyces Boulardi 250 mg Cap PO SCH (19:31)
[2018-03-09 20:03] LABS: ARTERIAL BLOOD GAS HCO3 19.8 mmol/L (21-28); ARTERIAL BLOOD GAS O2 SAT 98.3 % (95-98); ARTERIAL BLOOD GAS PCO2 29 mm/Hg (35-45); ARTERIAL BLOOD GAS PH 7.38 (7.35-7.45); ARTERIAL BLOOD GAS PO2 92 mm/Hg (80-100); ARTERIAL BLOOD GAS TCO2 18.1 mmol/L (22-28)
[2018-03-09] MEDS ORDERED: Sodium Chloride 0.9% 1,000 ML IV ONE (20:49)
[2018-03-09] MEDS: MethylPREDNISolone 40 mg Vial IVP SCH (21:03)
[2018-03-09] MEDS: Sodium Chloride 0.9% 1,000 ML IV SCH (21:38)
[2018-03-09] MEDS ORDERED: MethylPREDNISolone 40 mg Vial IVP SCH (22:00)
[2018-03-09 23:16] LABS: ALB/GLOB RATIO 1.3 (1.0-2.1); ALBUMIN 3.9 g/dL (3.5-5.0); ALT/SGPT 19 U/L (9-52); AST/SGOT 18 U/L (14-36); BLOOD UREA NITROGEN 10 mg/dL (7-17); CALCIUM 8.9 mg/dl (8.6-10.4); GFR AFRICAN-AMERICAN > 60; GFR NON-AFRICAN AMERICAN > 60
[2018-03-10 01:02] VITALS: RESP 20
[2018-03-10] MEDS: Albuterol-Ipratrop 3 mg / 0.5 (3 ml) UD INH SCH ×4 (01:34→19:13)
[2018-03-10 06:08] LABS: BASO % 0.2 % (0.0-2.0); HEMOGLOBIN 14.4 g/dL (11.0-16.0); LYMPH # 0.9 K/uL (1.0-4.3); LYMPH % 15.5 % (20.0-40.0); MEAN CELL VOLUME 93.3 fL (81.0-99.0); MEAN CORPUSCULAR HEMOGLOBIN 31.8 pg (27.0-31.0); MEAN CORPUSCULAR HGB CONC 34.1 g/dL (33.0-37.0); MEAN PLATELET VOLUME 10.3 fL (7.2-11.7); MONO # 0.1 K/uL (0.0-0.8); MONO % 2.1 % (0.0-10.0); NEUT # 4.8 K/uL (1.8-7.0); NEUT % 82.2 % (50.0-75.0); RBC 4.53 Mil/uL (3.80-5.20); WHITE BLOOD COUNT 5.9 K/uL (4.8-10.8)
[2018-03-10 07:38] LABS: ALB/GLOB RATIO 1.3 (1.0-2.1); ALBUMIN 3.7 g/dL (3.5-5.0); ALT/SGPT 23 U/L (9-52); AST/SGOT 16 U/L (14-36); BLOOD UREA NITROGEN 11 mg/dL (7-17); GFR AFRICAN-AMERICAN > 60; GFR NON-AFRICAN AMERICAN > 60
--- NOTE | 2018-03-10 07:51 | CP.PCM.PN ---
<Marcio Greene - Last Filed: 03/10/18 16:46> Subjective - Date & Time of Evaluation Date of Evaluation: 03/10/18 Time of Evaluation: 07:51 - Subjective Subjective: Medicine note for hospitalist service Pt seen and examined at bedside. Pt complains of an unremitting headache since last night. Reports headache localized to left eye, supra-orbital. Pt complains of mild abdominal pain after meals. Pt still complains of cough. Pt denies chest pain, SOB, n/v, f/c, pain on inspiration. Objective - Vital Signs/Intake and Output Vital Signs (last 24 hours): Temp Pulse Resp BP Pulse Ox 97 F L 90 20 121/76 95 03/10/18 07:29 03/10/18 07:29 03/10/18 07:29 03/10/18 07:29 03/10/18 07:29 Intake and Output: 03/10/18 03/10/18 06:59 18:59 Intake Total 840 Balance 840 - Medications Medications: Current Medications Acetaminophen (Tylenol 325mg Tab) 650 mg PO Q6 PRN PRN Reason: Headache Last Admin: 03/10/18 05:23 Dose: 650 mg Albuterol/Ipratropium (Duoneb 3 Mg/0.5 Mg (3 Ml) Ud) 3 ml INH RQ6 KODY Last Admin: 03/10/18 07:19 Dose: 3 ml Albuterol/Ipratropium (Duoneb 3 Mg/0.5 Mg (3 Ml) Ud) 3 ml INH RQ4 PRN PRN Reason: Shortness of Breath Guaifenesin (Mucinex La) 600 mg PO BID [facility] Last Admin: 03/09/18 19:17 Dose: 600 mg Heparin Sodium (Porcine) (Heparin) 5,000 units SC Q12 KODY Last Admin: 03/09/18 21:41 Dose: 5,000 units Doxycycline Hyclate 100 mg/ (Sodium Chloride) 100 mls @ 100 mls/hr IVPB Q12H KODY PRN Reason: Protocol Last Admin: 03/10/18 05:19 Dose: 100 mls/hr Sodium Chloride (Sodium Chloride 0.9%) 1,000 mls @ 75 mls/hr IV .[id number] [facility] Last Admin: 03/09/18 21:38 Dose: 75 mls/hr Methylprednisolone (Solu-Medrol) 40 mg IVP Q12H [facility] Last Admin: 03/09/18 21:03 Dose: 40 mg Ondansetron HCl (Zofran Inj) 4 mg IVP Q6 PRN PRN Reason: Nausea/Vomiting Pantoprazole Sodium (Protonix Ec Tab) 40 mg PO DAILY [facility] Last Admin: 03/09/18 19:17 Dose: 40 mg Pneumococcal Polyvalent Vaccine (Pneumovax 23 Vaccine) 0.5 ml IM .ONCE ONE Stop: 03/11/18 08:01 Saccharomyces Boulardii (Florastor) 250 mg PO DAILY [facility] Last Admin: 03/09/18 19:31 Dose: Not Given - Labs Labs: 03/10/18 06:04 03/10/18 06:04 - Constitutional Appears: Well, Non-toxic, No Acute Distress - Head Exam Head Exam: ATRAUMATIC, NORMAL INSPECTION - Eye Exam Eye Exam: EOMI, Normal appearance - ENT Exam ENT Exam: Mucous Membranes Moist - Respiratory Exam Respiratory Exam: Wheezes (mild expiratory in all lung solorzano), NORMAL BREATHING PATTERN. absent: Accessory Muscle Use - Cardiovascular Exam Cardiovascular Exam: RRR, +S1, +S2. absent: Murmur - GI/Abdominal Exam GI & Abdominal Exam: Soft, Tenderness (L lowe quadrant). absent: Distended, Guarding, Rigid - Extremities Exam Extremities Exam: Normal Inspection. absent: Joint Swelling, Pedal Edema - Back Exam Back Exam: NORMAL INSPECTION - Neurological Exam Neurological Exam: Alert, Awake, CN II-XII Intact, Oriented x3 Neuro motor strength exam: Left Upper Extremity: 5, Right Upper Extremity: 5, Left Lower Extremity: 5, Right Lower Extremity: 5 - Psychiatric Exam Psychiatric exam: Normal Affect, Normal Mood - Skin Skin Exam: Normal Color, Warm. absent: Pallor Assessment and Plan - Assessment and Plan (Free Text) Assessment: 37 year old female with a past medical history of asthma comes in today complaining of vomiting and phlegm production for the past five months admitted or chronic sinusitis and asthma exacerbation. Plan: Asthma exacerbation Chest xray:increased conspicity at discoid to subsegmental right lung base atelectasis -Pulmonary consulted Dr. Gayle. Help appreciated. -severe persistent (day symptoms for past week requiring nebulizer) -Peak flow daily -Repeat CXR : neg -ABG: results appreciated -IV solumedrol 20mg IVP q12 -Mucinex 600mg PO BID -Duonebs 3ml inh rq6 kody -Duonebs 3ml inh rq4 PRN Chronic Sinusitis Sinus CT scan(03/09/2018): :Pansinusitis identified. Question of prior bilateral nasal antrostomy surgery in the past. Clinically correlate. Head Ct 03/10: chronic sinusitis -Status post [address] Thorpe in [place]: January 2018 and January 2018 -Persistent symptoms in spite prior treatment -Failed outpatient treatment. -Prior ED visit on 05/2017 -ENT evaluation Dr. Rivera consulted. Help appreciated. -Blood cultures ordered. Neg 24hrs -Sputum cultures ordered. neg 24hrs -Doxycycline 100mg IV Q12 Headache Likely secondary to sinus infection. -Tylenol 650mg PO Q6 PRN -furocet on discharge Hypokalemia resolved Nausea/Vomiting resolved PPX Protonix 40mg PO Daily Heparin 5000 units SC Q12 Florastor <Baltazar Viveros - Last Filed: 03/11/18 19:33> Objective - Vital Signs/Intake and Output Vital Signs (last 24 hours): Temp Pulse Resp BP Pulse Ox 98.2 F 94 H 20 122/78 96 03/11/18 07:33 03/11/18 07:33 03/11/18 07:33 03/11/18 07:33 03/11/18 12:50 Intake and Output: 03/11/18 03/12/18 18:59 06:59 Intake Total 1135 Balance 1135 - Labs Labs: 03/11/18 07:23 03/11/18 07:23 Attending/Attestation - Attestation I have personally seen and examined this patient.: Yes I have fully participated in the care of the patient.: Yes I have reviewed all pertinent clinical information, including history, physical exam and plan: Yes Notes (Text): 03/11/18 19:32 This is a late entry Care of this patient was discussed in detail with the resident. Batlazar Viveros D.O.
[2018-03-10] MEDS: MethylPREDNISolone 40 mg Vial IVP SCH ×2 (09:46→21:10)
[2018-03-10] MEDS: guaiFENesin 600 mg ER Tab PO SCH ×2 (09:46→17:49)
[2018-03-10] MEDS: Saccharomyces Boulardi 250 mg Cap PO SCH (09:46)
[2018-03-10] MEDS: Sodium Chloride 0.9% 1,000 ML IV SCH ×3 (09:47→23:51)
--- NOTE | 2018-03-10 10:10 | RAD ---
Date of service: 03/10/2018 HISTORY: asthma exacerbation COMPARISON: Chest radiographs 03/09/2018. FINDINGS: LUNGS: No active pulmonary disease. PLEURA: No significant pleural effusion identified, no pneumothorax apparent. CARDIOVASCULAR: Normal. OSSEOUS STRUCTURES: No significant abnormalities. VISUALIZED UPPER ABDOMEN: Normal. OTHER FINDINGS: None. IMPRESSION: No interval acute cardiopulmonary disease appreciated.
[2018-03-10] MEDS: Pantoprazole 40 mg EC Tab PO SCH ×2 (10:47→11:19)
--- NOTE | 2018-03-10 11:32 | CP.PCM.DIS ---
Provider - Provider Date of Admission: 03/09/18 15:32 Attending physician: Alba Terrazas DO Time Spent in preparation of Discharge (in minutes): 45 Diagnosis - Discharge Diagnosis (1) Headache above the eye region Status: Chronic (2) Asthma exacerbation Status: Resolved (3) Sinusitis Status: Chronic Hospital Course - Lab Results Lab Results: Most Recent Lab Values WBC 5.9 K/uL (4.8-10.8) 03/10/18 06:04 RBC 4.53 Mil/uL (3.80-5.20) 03/10/18 06:04 Hgb 14.4 g/dL (11.0-16.0) 03/10/18 06:04 Hct 42.3 % (34.0-47.0) 03/10/18 06:04 MCV 93.3 fL (81.0-99.0) 03/10/18 06:04 MCH 31.8 pg (27.0-31.0) H 03/10/18 06:04 MCHC 34.1 g/dL (33.0-37.0) 03/10/18 06:04 RDW 14.0 % (11.5-14.5) 03/10/18 06:04 Plt Count 227 K/uL (130-400) 03/10/18 06:04 MPV 10.3 fL (7.2-11.7) 03/10/18 06:04 Neut % (Auto) 82.2 % (50.0-75.0) H 03/10/18 06:04 Lymph % (Auto) 15.5 % (20.0-40.0) L 03/10/18 06:04 [place] % (Auto) 2.1 % (0.0-10.0) 03/10/18 06:04 Eos % (Auto) 0.0 % (0.0-4.0) 03/10/18 06:04 Baso % (Auto) 0.2 % (0.0-2.0) 03/10/18 06:04 Neut # (Auto) 4.8 K/uL (1.8-7.0) 03/10/18 06:04 Lymph # (Auto) 0.9 K/uL (1.0-4.3) L 03/10/18 06:04 [place] # (Auto) 0.1 K/uL (0.0-0.8) 03/10/18 06:04 Eos # (Auto) 0.0 K/uL (0.0-0.7) 03/10/18 06:04 Baso # (Auto) 0.0 K/uL (0.0-0.2) 03/10/18 06:04 Puncture Site Rra 03/09/18 19:50 pCO2 29 mm/Hg (35-45) L 03/09/18 19:50 pO2 92 mm/Hg (80-100) 03/09/18 19:50 HCO3 19.8 mmol/L (21-28) L 03/09/18 19:50 ABG pH 7.38 (7.35-7.45) 03/09/18 19:50 ABG Total CO2 18.1 mmol/L (22-28) L 03/09/18 19:50 ABG O2 Saturation 98.3 % (95-98) H 03/09/18 19:50 ABG Base Excess -6.6 mmol/L (-2.0-3.0) L 03/09/18 19:50 Rafael Test Na 03/09/18 19:50 ABG Potassium 3.9 mmol/L (3.6-5.2) 03/09/18 19:50 Sodium 141.0 mmol/l (132-148) 03/09/18 19:50 Chloride 109.0 mmol/L (98-107) H 03/09/18 19:50 Glucose 146 mg/dl (65-105) H 03/09/18 19:50 Lactate 5.2 mmol/L (0.7-2.1) H* 03/09/18 19:50 Crit Value Called To Aron mantilla 03/09/18 19:50 Crit Value Called By Liliana wilder 03/09/18 19:50 Crit Value Read Back Y 03/09/18 19:50 Blood Gas Notified Time 200203/09/18 19:50 Sodium 136 mmol/L (132-148) 03/10/18 06:04 Potassium 4.6 mmol/L (3.6-5.2) 03/10/18 06:04 Chloride 108 mmol/L (98-107) H 03/10/18 06:04 Carbon Dioxide 19 mmol/L (22-30) L 03/10/18 06:04 Anion Gap 14 (10-20) 03/10/18 06:04 BUN 11 mg/dL (7-17) 03/10/18 06:04 Creatinine 0.7 mg/dL (0.7-1.2) 03/10/18 06:04 Est GFR ( Amer) > 60 03/10/18 06:04 Est GFR (Non-Af Amer) > 60 03/10/18 06:04 Random Glucose 140 mg/dL (65-105) H 03/10/18 06:04 Lactic Acid 2.2 mmol/L (0.7-2.1) H 03/10/18 02:53 Calcium 9.0 mg/dl (8.6-10.4) 03/10/18 06:04 Phosphorus 3.0 mg/dL (2.5-4.5) 03/10/18 06:04 Magnesium 1.8 mg/dL (1.6-2.3) 03/10/18 06:04 Total Bilirubin 0.3 mg/dL (0.2-1.3) 03/10/18 06:04 AST 16 U/L (14-36) 03/10/18 06:04 ALT 23 U/L (9-52) 03/10/18 06:04 Alkaline Phosphatase 63 U/L (38-126) 03/10/18 06:04 Total Protein 6.5 g/dL (6.3-8.3) 03/10/18 06:04 Albumin 3.7 g/dL (3.5-5.0) 03/10/18 06:04 Globulin 2.8 gm/dL (2.2-3.9) 03/10/18 06:04 Albumin/Globulin Ratio 1.3 (1.0-2.1) 03/10/18 06:04 Procalcitonin < 0.05 NG/ML (0.19-0.49) L 03/10/18 06:04 Beta HCG, Quant < 2.39 mIU/ML 03/09/18 21:00 Arterial Blood Potassium 3.9 mmol/L (3.6-5.2) 03/09/18 19:50 Urine HCG, Qual Negative (NEGATIVE) 03/09/18 21:00 Influenza Typ A,B (EIA) Negative for flu a/b (NEGATIVE) 03/09/18 20:00 Ur L.pneumophila Ag Negative (NEGATIVE) 03/09/18 19:57 Discharge Exam - Head Exam Head Exam: ATRAUMATIC, NORMAL INSPECTION - Eye Exam Eye Exam: EOMI, Normal appearance. absent: Scleral icterus - ENT Exam ENT Exam: Mucous Membranes Moist - Respiratory Exam Respiratory Exam: Wheezes (all solorzano), NORMAL BREATHING PATTERN. absent: Rales , Rhonchi - Cardiovascular Exam Cardiovascular Exam: RRR, +S1, +S2. absent: Diastolic murmur, Rubs, Systolic Murmur - GI/Abdominal Exam GI & Abdominal Exam: Soft, Tenderness (L lower quadrant). absent: Distended, Guarding - Extremities Exam Extremities exam: normal inspection - Back Exam Back exam: NORMAL INSPECTION, paraspinal tenderness (Upper thoracic bilaterally) . absent: CVA tenderness (L), CVA tenderness (R) - Neurological Exam Neurological exam: Alert, CN II-XII Intact, Oriented x3 - Psychiatric Exam Psychiatric exam: Normal Affect, Normal Mood - Skin Skin Exam: Dry, Normal Color, Warm Discharge Plan - Follow Up Plan Condition: GOOD Disposition: HOME/ ROUTINE
[2018-03-10] MEDS ORDERED: Apap-Butalbital-Caffeine 325-50-40mg Tab PO STA (11:36)
[2018-03-10] MEDS ORDERED: Iodixanol 320 MG/ML 100 ML BOTTLE IV ONE ×2 (11:36→15:29)
[2018-03-10] MEDS ORDERED: Apap-Butalbital-Caffeine 325-50-40mg Tab PO ONE (12:00)
--- NOTE | 2018-03-10 15:36 | CP.PCM.CON ---
History of Present Illness - History of Present Illness History of Present Illness: 37 year old female with a past medical history of asthma comes in today complaining of vomiting and phlegm production for the past five months. The patient states the phlegm began five month ago and the vomiting began around one week ago. The patient describes the vomit as pheglm with a yellowish-green production. Patient was seen by Dr. Rivera who referred her to a Dr. Thorpe in [place] for two procedures completed in January 2018 and January 2018. Patient states she has a follow up with specialist. PMHx: asthma PSHx: hysterectomy 2010, cholecystectomy 2012, appendectomy 2013 FMHx: mother, aunt and son has asthma Social: denied tobacco use but grew up with second hand smoke from mother and current coworkers, denied ETOH or drugs. Works as [employer] Review of Systems - Review of Systems All systems: reviewed and no additional remarkable complaints except - Constitutional Constitutional: As Per HPI - EENT Eyes: As Per HPI Nose/Mouth/Throat: As Per HPI - Breasts Breasts: absent: As Per HPI, Change in Shape, Mass, Pain, Nipple Discharge, Nipple Inversion, Skin Changes, Swelling, Other - Cardiovascular Cardiovascular: absent: As Per HPI, Acrocyanosis, Chest Pain, Chest Pain at Rest , Chest Pain with Activity, Claudication, Diaphoresis, Dyspnea, Dyspnea on Exertion, Edema, Irregular Heart Rhythm, Pain Radiating to Arm/Neck/Jaw, Leg Edema, Leg Ulcers, Lightheadedness, Orthopnea, Palpitations, Paroxysmal Nocturnal Dyspnea, Pedal Edema, Radiating Pain, Rapid Heart Rate, Slow Heart Rate, Syncope, Other - Respiratory Respiratory: As Per HPI, Cough, Dyspnea - Gastrointestinal Gastrointestinal: absent: As Per HPI, Abdominal Pain, Belching, Bloating, Change in Bowel Habits, Change in Stool Character, Coffee Ground Emesis, Constipation, Cramping, Diarrhea, Dyspepsia, Dysphagia, Early Satiety, Excessive Flatus, Fecal Incontinence, Heartburn, Hematemesis, Hematochezia, Loose Stools, Melena, Nausea, Odynophagia, Temesmus, Vomiting, Other - Genitourinary Genitourinary: absent: As Per HPI, Change in Urinary Stream, Difficulty Urinating, Dysuria, Flank Pain, Hematuria, Pyuria, Nocturia, Urinary Incontinence, Urinary Frequency, Urinary Hesitance, Urinary Urgency, Voiding Freq/Small Amts, Freq UTI, Hx Renal/Bladder Calculi, Hx /Renal Surgery, Bladder Distension, Other - Reproductive: Female Reproductive:Female: absent: As Per HPI, Amenorrhea, Amenorrhea/ Control, Currently Menstual, Cycle <21 Days, Cycle >35 Days, Cycle Variable, Menses 1-7 Days, Menses >/= 8 Days, Menses Variable, Cycle > 4 Weeks Between, No Menses for 6 Months, Heavy Menses, Light Menses, Normal Menses, Spotting Between Cycles , S/P Hysterectomy, Menopausal, Post Menopausal, Premenarche, Abnormal Vaginal Bleeding, Dysmenorrhea, Dyspareunia, Genital Lesions, Genital Pruritis, Pelvic Pain, Prolapse Symptoms, Sexual Dysfunction, Vaginal Discharge, Vaginal Dryness , Vaginal Odor, Vaginal Pruritis, Other - Menstruation Menstruation: absent: As Per HPI, Amenorrhea, Amenorrhea/ Control, Currently Menstual, Cycle <21 Days, Cycle >35 Days, Cycle Variable, Menses 1-7 Days, Menses >/= 8 Days, Menses Variable, Cycle > 4 Weeks Between, No Menses for 6 Months, Heavy Menses, Light Menses, Normal Menses, Spotting Between Cycles , S/P Hysterectomy, Menopausal, Post Menopausal, Premenarche, Abnormal Vaginal Bleeding, Dysmenorrhea, Other - Musculoskeletal Musculoskeletal: absent: As Per HPI, Abnormal Gait, Arthralgias, Atrophy, Back Pain, Deformity, Joint Swelling, Limited Range of Motion, Loss of Height, Muscle Cramps, Muscle Weakness, Myalgias, Neck Pain, Numbness, Radiating Pain into Limb, Stiffness, Tingling, Other - Integumentary Integumentary: absent: As Per HPI, Acne, Alopecia, Bleeding Lesions, Change in Hair, Change in Nails, Change in Pigmentation, Changing Lesions, Dry Skin, Erythema, Furuncle, Hirsutism, Lesions, New Lesions, Non-Healing Lesions, Photosensitivity, Pruritus, Rash, Skin Pain, Skin Ulcer, Sores, Striae, Swelling , Unusual Bruising, Wounds, Jaundice, Other - Neurological Neurological: absent: As Per HPI, Abnormal Gait, Abnormal Hearing, Abnormal Movements, Abnormal Speech, Behavioral Changes, Burning Sensations, Confusion, Convulsions, Disequilibrium, Dizziness, Numbness, Focal Weakness, Frequent Falls , Headaches, Lack of Coordination, Loss of Vision, Memory Loss, Paresthesias, Radicular Pain, Restless Legs, Sensory Deficit, Syncope, Tingling, Tremor, Vertigo, Weakness, Other Visual Disturbances, Other - Psychiatric Psychiatric: absent: As Per HPI, Abnormal Sleep Pattern, Anhedonia, Anxiety, Auditory Hallucinations, Behavioral Changes, Change in Appetite, Change in Libido, Confusion, Depression, Difficulty Concentrating, Hallucinations, Homicidal Ideation, Hopelessness, Irritability, Memory Loss, Mood Swings, Panic Attacks, Paranoia, Suicidal Ideation, Visual Hallucinations, Tactile Hallucinations, Other - Endocrine Endocrine: absent: As Per HPI, Change in Body Appearance, Change in Libido, Cold Intolorance, Deepening of Voice, Excessive Sweating, Fatigue, Flushing, Heat Intolorance, Increase in Ring/Shoe/Hat Size, Palpitations, Polydipsia, Polyphagia, Polyuria, Other Past Patient History - Infectious Disease Hx of Infectious Diseases: None - Past Medical History & Family History Past Medical History?: Yes - Past Social History Smoking Status: Never Smoked - PULMONARY Hx Asthma: Yes - MUSCULOSKELETAL/RHEUMATOLOGICAL Hx Falls: No - GASTROINTESTINAL Other/Comment: appendectomy/gall bladder remova/ - PSYCHIATRIC Hx Substance Use: No - SURGICAL HISTORY Hx Appendectomy: Yes Hx Cholecystectomy: Yes - ANESTHESIA Hx Anesthesia: Yes Hx Anesthesia Reactions: Yes (HEADACHE) Meds Allergies/Adverse Reactions: Allergies Allergy/AdvReac Type Severity Reaction Status Date / Time ibuprofen [From Motrin] Allergy SHORTNESS Verified 03/09/18 12:37 OF BREATH - Medications Medications: Current Medications Acetaminophen (Tylenol 325mg Tab) 650 mg PO Q6 PRN PRN Reason: Headache Last Admin: 03/10/18 05:23 Dose: 650 mg Albuterol/Ipratropium (Duoneb 3 Mg/0.5 Mg (3 Ml) Ud) 3 ml INH RQ6 CAROL Last Admin: 03/10/18 13:32 Dose: 3 ml Albuterol/Ipratropium (Duoneb 3 Mg/0.5 Mg (3 Ml) Ud) 3 ml INH RQ4 PRN PRN Reason: Shortness of Breath Guaifenesin (Mucinex La) 600 mg PO BID [facility] Last Admin: 03/10/18 09:46 Dose: 600 mg Heparin Sodium (Porcine) (Heparin) 5,000 units SC Q12 CAROL Last Admin: 03/10/18 09:46 Dose: 5,000 units Doxycycline Hyclate 100 mg/ (Sodium Chloride) 100 mls @ 100 mls/hr IVPB Q12H [facility] PRN Reason: Protocol Last Admin: 03/10/18 05:19 Dose: 100 mls/hr Sodium Chloride (Sodium Chloride 0.9%) 1,000 mls @ 75 mls/hr IV .[id number] [facility] Last Admin: 03/10/18 09:47 Dose: Not Given Methylprednisolone (Solu-Medrol) 40 mg IVP Q12H [facility] Last Admin: 03/10/18 09:46 Dose: 40 mg Ondansetron HCl (Zofran Inj) 4 mg IVP Q6 PRN PRN Reason: Nausea/Vomiting Pantoprazole Sodium (Protonix Ec Tab) 40 mg PO DAILY [facility] Last Admin: 03/10/18 10:47 Dose: 40 mg Pneumococcal Polyvalent Vaccine (Pneumovax 23 Vaccine) 0.5 ml IM .ONCE ONE Stop: 03/11/18 08:01 Saccharomyces Boulardii (Florastor) 250 mg PO DAILY [facility] Last Admin: 03/10/18 09:46 Dose: 250 mg Physical Exam - Constitutional Appears: Non-toxic, Chronically Ill - Head Exam Head Exam: NORMOCEPHALIC - Eye Exam Eye Exam: PERRL. absent: Scleral icterus - ENT Exam ENT Exam: Mucous Membranes Dry - Neck Exam Neck exam: Negative for: Lymphadenopathy - Respiratory Exam Respiratory Exam: Decreased Breath Sounds, Prolonged Expiratory Phase, Wheezes - Cardiovascular Exam Cardiovascular Exam: REGULAR RHYTHM, +S1, +S2 - GI/Abdominal Exam GI & Abdominal Exam: Diminished Bowel Sounds, Soft. absent: Tenderness - Rectal Exam Rectal Exam: Deferred - Exam Exam: NORMAL INSPECTION - Extremities Exam Extremities exam: Positive for: pedal pulses present. Negative for: calf tenderness, pedal edema, tenderness - Back Exam Back exam: absent: CVA tenderness (L), CVA tenderness (R), paraspinal tenderness - Neurological Exam Neurological exam: Alert, CN II-XII Intact, Oriented x3, Reflexes Normal - Psychiatric Exam Psychiatric exam: Normal Mood - Skin Skin Exam: Dry Results - Vital Signs Recent Vital Signs: Last Vital Signs Temp 97 F L 03/10/18 07:29 Pulse 90 03/10/18 07:29 Resp 20 03/10/18 07:29 BP 121/76 03/10/18 07:29 Pulse Ox 95 03/10/18 08:00 - Labs Result Diagrams: 03/10/18 06:04 03/10/18 06:04 Labs: Laboratory Results - last 24 hr 03/09/18 03/09/18 03/09/18 15:29 19:50 19:57 WBC RBC Hgb Hct MCV MCH MCHC RDW Plt Count MPV Neut % (Auto) Lymph % (Auto) [place] % (Auto) Eos % (Auto) Baso % (Auto) Neut # (Auto) Lymph # (Auto) [place] # (Auto) Eos # (Auto) Baso # (Auto) Puncture Site Rra pCO2 29 L pO2 92 HCO3 19.8 L ABG pH 7.38 ABG Total CO2 18.1 L ABG O2 Saturation 98.3 H ABG Base Excess -6.6 L Rafael Test Na ABG Potassium 3.9 Glucose 146 H Lactate 5.2 H* Crit Value Called To Er nicholasr leslya Crit Value Called By Liliana rt Crit Value Read Back Y Blood Gas Notified Time 2002 Sodium 142 141.0 Potassium 2.8 L Chloride 108 H 109.0 H Carbon Dioxide 22 Anion Gap 15 BUN 7 Creatinine 0.5 L Est GFR ( Amer) > 60 Est GFR (Non-Af Amer) > 60 Random Glucose 74 Lactic Acid Calcium 7.3 L Phosphorus Magnesium Total Bilirubin 0.4 AST 16 ALT 29 Alkaline Phosphatase 59 Total Protein 5.7 L Albumin 3.2 L D Globulin 2.6 Albumin/Globulin Ratio 1.2 Procalcitonin Beta HCG, Quant Arterial Blood Potassium 3.9 Urine HCG, Qual Influenza Typ A,B (EIA) Ur L.pneumophila Ag Negative Mycoplasma pneumon IgM 03/09/18 03/09/18 03/09/18 20:00 20:37 21:00 WBC RBC Hgb Hct MCV MCH MCHC RDW Plt Count MPV Neut % (Auto) Lymph % (Auto) [place] % (Auto) Eos % (Auto) Baso % (Auto) Neut # (Auto) Lymph # (Auto) [place] # (Auto) Eos # (Auto) Baso # (Auto) Puncture Site pCO2 pO2 HCO3 ABG pH ABG Total CO2 ABG O2 Saturation ABG Base Excess Rafael Test ABG Potassium Glucose Lactate Crit Value Called To Crit Value Called By Crit Value Read Back Blood Gas Notified Time Sodium Potassium Chloride Carbon Dioxide Anion Gap BUN Creatinine Est GFR ( Amer) Est GFR (Non-Af Amer) Random Glucose Lactic Acid Calcium Phosphorus Magnesium 1.8 Total Bilirubin AST ALT Alkaline Phosphatase Total Protein Albumin Globulin Albumin/Globulin Ratio Procalcitonin Beta HCG, Quant < 2.39 Arterial Blood Potassium Urine HCG, Qual Influenza Typ A,B (EIA) Negative for flu a/b Ur L.pneumophila Ag Mycoplasma pneumon IgM 03/09/18 03/09/18 03/09/18 21:00 23:00 23:21 WBC RBC Hgb Hct MCV MCH MCHC RDW Plt Count MPV Neut % (Auto) Lymph % (Auto) [place] % (Auto) Eos % (Auto) Baso % (Auto) Neut # (Auto) Lymph # (Auto) [place] # (Auto) Eos # (Auto) Baso # (Auto) Puncture Site pCO2 pO2 HCO3 ABG pH ABG Total CO2 ABG O2 Saturation ABG Base Excess Rafael Test ABG Potassium Glucose Lactate Crit Value Called To Crit Value Called By Crit Value Read Back Blood Gas Notified Time Sodium 139 Potassium 4.3 Chloride 107 Carbon Dioxide 20 L Anion Gap 17 BUN 10 Creatinine 0.9 Est GFR ( Amer) > 60 Est GFR (Non-Af Amer) > 60 Random Glucose 139 H Lactic Acid 2.3 H Calcium 8.9 Phosphorus Magnesium Total Bilirubin 0.4 AST 18 ALT 19 Alkaline Phosphatase 64 Total Protein 6.9 Albumin 3.9 Globulin 3.0 Albumin/Globulin Ratio 1.3 Procalcitonin Beta HCG, Quant Arterial Blood Potassium Urine HCG, Qual Negative Influenza Typ A,B (EIA) Ur L.pneumophila Ag Mycoplasma pneumon IgM 03/10/18 03/10/18 03/10/18 02:53 06:04 06:04 WBC 5.9 RBC 4.53 Hgb 14.4 Hct 42.3 MCV 93.3 MCH 31.8 H MCHC 34.1 RDW 14.0 Plt Count 227 MPV 10.3 Neut % (Auto) 82.2 H Lymph % (Auto) 15.5 L [place] % (Auto) 2.1 Eos % (Auto) 0.0 Baso % (Auto) 0.2 Neut # (Auto) 4.8 Lymph # (Auto) 0.9 L [place] # (Auto) 0.1 Eos # (Auto) 0.0 Baso # (Auto) 0.0 Puncture Site pCO2 pO2 HCO3 ABG pH ABG Total CO2 ABG O2 Saturation ABG Base Excess Rafael Test ABG Potassium Glucose Lactate Crit Value Called To Crit Value Called By Crit Value Read Back Blood Gas Notified Time Sodium Potassium Chloride Carbon Dioxide Anion Gap BUN Creatinine Est GFR ( Amer) Est GFR (Non-Af Amer) Random Glucose Lactic Acid 2.2 H Calcium Phosphorus Magnesium Total Bilirubin AST ALT Alkaline Phosphatase Total Protein Albumin Globulin Albumin/Globulin Ratio Procalcitonin Beta HCG, Quant Arterial Blood Potassium Urine HCG, Qual Influenza Typ A,B (EIA) Ur L.pneumophila Ag Mycoplasma pneumon IgM Positive H 03/10/18 03/10/18 06:04 06:04 WBC RBC Hgb Hct MCV MCH MCHC RDW Plt Count MPV Neut % (Auto) Lymph % (Auto) [place] % (Auto) Eos % (Auto) Baso % (Auto) Neut # (Auto) Lymph # (Auto) [place] # (Auto) Eos # (Auto) Baso # (Auto) Puncture Site pCO2 pO2 HCO3 ABG pH ABG Total CO2 ABG O2 Saturation ABG Base Excess Rafael Test ABG Potassium Glucose Lactate Crit Value Called To Crit Value Called By Crit Value Read Back Blood Gas Notified Time Sodium 136 Potassium 4.6 Chloride 108 H Carbon Dioxide 19 L Anion Gap 14 BUN 11 Creatinine 0.7 Est GFR ( Amer) > 60 Est GFR (Non-Af Amer) > 60 Random Glucose 140 H Lactic Acid Calcium 9.0 Phosphorus 3.0 Magnesium 1.8 Total Bilirubin 0.3 AST 16 ALT 23 Alkaline Phosphatase 63 Total Protein 6.5 Albumin 3.7 Globulin 2.8 Albumin/Globulin Ratio 1.3 Procalcitonin < 0.05 L Beta HCG, Quant Arterial Blood Potassium Urine HCG, Qual Influenza Typ A,B (EIA) Ur L.pneumophila Ag Mycoplasma pneumon IgM Assessment & Plan (1) Mycoplasma pneumonia Status: Acute (2) Mycoplasma pneumonia Status: Acute (3) Asthma exacerbation Status: Resolved (4) Bronchitis Status: Acute - Assessment and Plan (Free Text) Assessment: cont rx of mycoplasma for 7 -10 days follow up with Dr Gayle and Dr Rivera
--- NOTE | 2018-03-10 16:33 | CT ---
Date of service: 03/10/2018 PROCEDURE: CT HEAD WITH CONTRAST HISTORY: Hx Sinus Surgery COMPARISON: CT head 02/08/2018 TECHNIQUE: Axial computed tomography images were obtained through the head/brain with intravenous contrast. Contrast dose: 100 mL Visipaque 320 Radiation dose: Total exam DLP = 806.45 mGy-cm. This CT exam was performed using one or more of the following dose reduction techniques: Automated exposure control, adjustment of the mA and/or kV according to patient size, and/or use of iterative reconstruction technique. FINDINGS: HEMORRHAGE: No intracranial hemorrhage. BRAIN: No mass, mass effect or edema. No abnormal intracranial enhancement. No atrophy or chronic microvascular ischemic changes. VENTRICLES: Unremarkable. No hydrocephalus. CALVARIUM: Unremarkable. PARANASAL SINUSES: Extensive chronic pansinusitis. Status post bilateral antrectomies/uncinectomy. MASTOID AIR CELLS: Unremarkable as visualized. No mastoid effusion. OTHER FINDINGS: None. IMPRESSION: No evidence of intracranial infection. Extensive chronic pansinusitis. Status post bilateral antrectomy/uncinectomy. Otherwise unremarkable.
--- NOTE | 2018-03-10 17:24 | CP.PCM.CON ---
History of Present Illness - History of Present Illness History of Present Illness: Reason for consultation: shortness of breath cough and wheezing 37-year-old female with history of asthma, sinusitis who presented to emergency room complaining of shortness of breath and cough productive of yellowish phlegm. Patient was seen in the office several times with similar complaintsand was prescribed antibiotics, steroids and bronchodilators. PMHx: asthma PSHx: hysterectomy 2010, cholecystectomy 2012, appendectomy 2013 FMHx: mother, aunt and son has asthma Social: denied tobacco use but grew up with second hand smoke from mother and current coworkers, denied ETOH or drugs. Works as [employer] Review of Systems - Review of Systems All systems: reviewed and no additional remarkable complaints except (shortness of breath, cough and wheezing) Past Patient History - Infectious Disease Hx of Infectious Diseases: None - Past Medical History & Family History Past Medical History?: Yes - Past Social History Smoking Status: Never Smoked - PULMONARY Hx Asthma: Yes - MUSCULOSKELETAL/RHEUMATOLOGICAL Hx Falls: No - GASTROINTESTINAL Other/Comment: appendectomy/gall bladder remova/ - PSYCHIATRIC Hx Substance Use: No - SURGICAL HISTORY Hx Appendectomy: Yes Hx Cholecystectomy: Yes - ANESTHESIA Hx Anesthesia: Yes Hx Anesthesia Reactions: Yes (HEADACHE) Meds Allergies/Adverse Reactions: Allergies Allergy/AdvReac Type Severity Reaction Status Date / Time ibuprofen [From Motrin] Allergy SHORTNESS Verified 03/09/18 12:37 OF BREATH - Medications Medications: Current Medications Acetaminophen (Tylenol 325mg Tab) 650 mg PO Q6 PRN PRN Reason: Headache Last Admin: 03/10/18 05:23 Dose: 650 mg Albuterol/Ipratropium (Duoneb 3 Mg/0.5 Mg (3 Ml) Ud) 3 ml INH RQ6 CAROL Last Admin: 03/10/18 13:32 Dose: 3 ml Albuterol/Ipratropium (Duoneb 3 Mg/0.5 Mg (3 Ml) Ud) 3 ml INH RQ4 PRN PRN Reason: Shortness of Breath Guaifenesin (Mucinex La) 600 mg PO BID [facility] Last Admin: 03/10/18 09:46 Dose: 600 mg Heparin Sodium (Porcine) (Heparin) 5,000 units SC Q12 CAROL Last Admin: 03/10/18 09:46 Dose: 5,000 units Doxycycline Hyclate 100 mg/ (Sodium Chloride) 100 mls @ 100 mls/hr IVPB Q12H [facility] PRN Reason: Protocol Last Admin: 03/10/18 16:50 Dose: 100 mls/hr Sodium Chloride (Sodium Chloride 0.9%) 1,000 mls @ 75 mls/hr IV .[id number] [facility] Last Admin: 03/10/18 16:52 Dose: 75 mls/hr Methylprednisolone (Solu-Medrol) 40 mg IVP Q12H [facility] Last Admin: 03/10/18 09:46 Dose: 40 mg Ondansetron HCl (Zofran Inj) 4 mg IVP Q6 PRN PRN Reason: Nausea/Vomiting Pantoprazole Sodium (Protonix Ec Tab) 40 mg PO DAILY [facility] Last Admin: 03/10/18 10:47 Dose: 40 mg Pneumococcal Polyvalent Vaccine (Pneumovax 23 Vaccine) 0.5 ml IM .ONCE ONE Stop: 03/11/18 08:01 Saccharomyces Boulardii (Florastor) 250 mg PO DAILY [facility] Last Admin: 03/10/18 09:46 Dose: 250 mg Physical Exam - Head Exam Head Exam: ATRAUMATIC, NORMOCEPHALIC - ENT Exam ENT Exam: Mucous Membranes Moist - Neck Exam Neck exam: Positive for: Normal Inspection - Respiratory Exam Respiratory Exam: Rhonchi, Wheezes - Cardiovascular Exam Cardiovascular Exam: REGULAR RHYTHM - GI/Abdominal Exam GI & Abdominal Exam: Normal Bowel Sounds, Soft Results - Vital Signs Recent Vital Signs: Last Vital Signs Temp 98.1 F 03/10/18 15:30 Pulse 68 03/10/18 15:30 Resp 20 03/10/18 15:30 BP 125/77 03/10/18 15:30 Pulse Ox 97 03/10/18 15:30 - Labs Result Diagrams: 03/10/18 06:04 03/10/18 06:04 Labs: Laboratory Results - last 24 hr 03/09/18 03/09/18 03/09/18 19:50 19:57 20:00 WBC RBC Hgb Hct MCV MCH MCHC RDW Plt Count MPV Neut % (Auto) Lymph % (Auto) [place] % (Auto) Eos % (Auto) Baso % (Auto) Neut # (Auto) Lymph # (Auto) [place] # (Auto) Eos # (Auto) Baso # (Auto) Puncture Site Rra pCO2 29 L pO2 92 HCO3 19.8 L ABG pH 7.38 ABG Total CO2 18.1 L ABG O2 Saturation 98.3 H ABG Base Excess -6.6 L Rafael Test Na ABG Potassium 3.9 Sodium 141.0 Chloride 109.0 H Glucose 146 H Lactate 5.2 H* Crit Value Called To Er nursr analiza Crit Value Called By Liliana rt Crit Value Read Back Y Blood Gas Notified Time 2002 Potassium Carbon Dioxide Anion Gap BUN Creatinine Est GFR ( Amer) Est GFR (Non-Af Amer) Random Glucose Lactic Acid Calcium Phosphorus Magnesium Total Bilirubin AST ALT Alkaline Phosphatase Total Protein Albumin Globulin Albumin/Globulin Ratio Procalcitonin Beta HCG, Quant Arterial Blood Potassium 3.9 Urine HCG, Qual Influenza Typ A,B (EIA) Negative for flu a/b Ur L.pneumophila Ag Negative Mycoplasma pneumon IgM 03/09/18 03/09/18 03/09/18 20:37 21:00 21:00 WBC RBC Hgb Hct MCV MCH MCHC RDW Plt Count MPV Neut % (Auto) Lymph % (Auto) [place] % (Auto) Eos % (Auto) Baso % (Auto) Neut # (Auto) Lymph # (Auto) [place] # (Auto) Eos # (Auto) Baso # (Auto) Puncture Site pCO2 pO2 HCO3 ABG pH ABG Total CO2 ABG O2 Saturation ABG Base Excess Rafael Test ABG Potassium Sodium Chloride Glucose Lactate Crit Value Called To Crit Value Called By Crit Value Read Back Blood Gas Notified Time Potassium Carbon Dioxide Anion Gap BUN Creatinine Est GFR ( Amer) Est GFR (Non-Af Amer) Random Glucose Lactic Acid Calcium Phosphorus Magnesium 1.8 Total Bilirubin AST ALT Alkaline Phosphatase Total Protein Albumin Globulin Albumin/Globulin Ratio Procalcitonin Beta HCG, Quant < 2.39 Arterial Blood Potassium Urine HCG, Qual Negative Influenza Typ A,B (EIA) Ur L.pneumophila Ag Mycoplasma pneumon IgM 03/09/18 03/09/18 03/10/18 23:00 23:21 02:53 WBC RBC Hgb Hct MCV MCH MCHC RDW Plt Count MPV Neut % (Auto) Lymph % (Auto) [place] % (Auto) Eos % (Auto) Baso % (Auto) Neut # (Auto) Lymph # (Auto) [place] # (Auto) Eos # (Auto) Baso # (Auto) Puncture Site pCO2 pO2 HCO3 ABG pH ABG Total CO2 ABG O2 Saturation ABG Base Excess Rafael Test ABG Potassium Sodium 139 Chloride 107 Glucose Lactate Crit Value Called To Crit Value Called By Crit Value Read Back Blood Gas Notified Time Potassium 4.3 Carbon Dioxide 20 L Anion Gap 17 BUN 10 Creatinine 0.9 Est GFR ( Amer) > 60 Est GFR (Non-Af Amer) > 60 Random Glucose 139 H Lactic Acid 2.3 H 2.2 H Calcium 8.9 Phosphorus Magnesium Total Bilirubin 0.4 AST 18 ALT 19 Alkaline Phosphatase 64 Total Protein 6.9 Albumin 3.9 Globulin 3.0 Albumin/Globulin Ratio 1.3 Procalcitonin Beta HCG, Quant Arterial Blood Potassium Urine HCG, Qual Influenza Typ A,B (EIA) Ur L.pneumophila Ag Mycoplasma pneumon IgM 03/10/18 03/10/18 03/10/18 06:04 06:04 06:04 WBC 5.9 RBC 4.53 Hgb 14.4 Hct 42.3 MCV 93.3 MCH 31.8 H MCHC 34.1 RDW 14.0 Plt Count 227 MPV 10.3 Neut % (Auto) 82.2 H Lymph % (Auto) 15.5 L [place] % (Auto) 2.1 Eos % (Auto) 0.0 Baso % (Auto) 0.2 Neut # (Auto) 4.8 Lymph # (Auto) 0.9 L [place] # (Auto) 0.1 Eos # (Auto) 0.0 Baso # (Auto) 0.0 Puncture Site pCO2 pO2 HCO3 ABG pH ABG Total CO2 ABG O2 Saturation ABG Base Excess Rafael Test ABG Potassium Sodium 136 Chloride 108 H Glucose Lactate Crit Value Called To Crit Value Called By Crit Value Read Back Blood Gas Notified Time Potassium 4.6 Carbon Dioxide 19 L Anion Gap 14 BUN 11 Creatinine 0.7 Est GFR ( Amer) > 60 Est GFR (Non-Af Amer) > 60 Random Glucose 140 H Lactic Acid Calcium 9.0 Phosphorus 3.0 Magnesium 1.8 Total Bilirubin 0.3 AST 16 ALT 23 Alkaline Phosphatase 63 Total Protein 6.5 Albumin 3.7 Globulin 2.8 Albumin/Globulin Ratio 1.3 Procalcitonin Beta HCG, Quant Arterial Blood Potassium Urine HCG, Qual Influenza Typ A,B (EIA) Ur L.pneumophila Ag Mycoplasma pneumon IgM Positive H 03/10/18 06:04 WBC RBC Hgb Hct MCV MCH MCHC RDW Plt Count MPV Neut % (Auto) Lymph % (Auto) [place] % (Auto) Eos % (Auto) Baso % (Auto) Neut # (Auto) Lymph # (Auto) [place] # (Auto) Eos # (Auto) Baso # (Auto) Puncture Site pCO2 pO2 HCO3 ABG pH ABG Total CO2 ABG O2 Saturation ABG Base Excess Rafael Test ABG Potassium Sodium Chloride Glucose Lactate Crit Value Called To Crit Value Called By Crit Value Read Back Blood Gas Notified Time Potassium Carbon Dioxide Anion Gap BUN Creatinine Est GFR ( Amer) Est GFR (Non-Af Amer) Random Glucose Lactic Acid Calcium Phosphorus Magnesium Total Bilirubin AST ALT Alkaline Phosphatase Total Protein Albumin Globulin Albumin/Globulin Ratio Procalcitonin < 0.05 L Beta HCG, Quant Arterial Blood Potassium Urine HCG, Qual Influenza Typ A,B (EIA) Ur L.pneumophila Ag Mycoplasma pneumon IgM Assessment & Plan (1) Asthma exacerbation Status: Resolved (2) Mycoplasma pneumonia Assessment and Plan: Start azithromycin Continue nebulizer treatment and steroids ENT evaluation Status: Acute
[2018-03-10] MEDS: Azithromycin 500 MG in Sodium Chloride 0.9% 250 ML IVPB SCH (18:00)
--- NOTE | 2018-03-10 18:44 | CP.PCM.PN ---
Subjective - Date & Time of Evaluation Date of Evaluation: 03/10/18 Time of Evaluation: 11:30 - Subjective Subjective: Hospitalist Progress Note Patient was seen and examined at 11:30 AM. Currently upon FULL ROS: Bifrontal headache Breathing is much better Occasional cough dry NO N/V: eating now without any issues and without abdominal pain Moving bowels normally NO rhinorrhea Exam: General: AAOX3, NAD HEENT: NCA, EOMI, PERRLA, NO cervical/supraclavicular/submandibular lymphadenopathy, NO pharyngeal erythema/exudate, Nasal Turbinates are nonerythematous/nonedematous, Oral Mucosa is moist Cardio: NS1 and NS2, NO M/R/G Resp: Few scattered expiratory wheezing diffusely GI: BSx4, Soft, NT, NO HSM, NO guarding/rebound tenderness Ext: Pulses are strong and equal, Capillary Refill is 2 seconds, NO edema Neuro: CN II through XII are grossly intact Assessments: 1). Asthma Exacerbation 2). Chronic Sinusitis S/P Sinus Surgery 3). FELIX 4). Hypokalemia 5). N/V Chest X Ray did not show any active disease. Patient is speaking in full sentences and shows no signs of respiratory distress. CT Sinuses shows pansinusitis with bilateral nasal antrostomy CT Head shows NO evidence of intracranial infection with extensive chronic pansinusitis with s/p bilateral antrectomy/uncinectomy We will discharge patient on Advair for 30 days, Albuterol PRN, and Prednisone Taper once these can be procured by the Clinical Advisor Patient already has follow up scheduled with ENT Surgeon at [facility] in [place], [place] on 03/16/18 Baltazar Viveros D.O. Objective - Vital Signs/Intake and Output Vital Signs (last 24 hours): Temp Pulse Resp BP Pulse Ox 98.1 F 68 20 125/77 97 03/10/18 15:30 03/10/18 15:30 03/10/18 15:30 03/10/18 15:30 03/10/18 15:30 Intake and Output: 03/10/18 03/10/18 06:59 18:59 Intake Total 840 1080 Balance 840 1080 - Medications Medications: Current Medications Acetaminophen (Tylenol 325mg Tab) 650 mg PO Q6 PRN PRN Reason: Headache Last Admin: 03/10/18 05:23 Dose: 650 mg Albuterol/Ipratropium (Duoneb 3 Mg/0.5 Mg (3 Ml) Ud) 3 ml INH RQ6 [facility] Last Admin: 03/10/18 13:32 Dose: 3 ml Albuterol/Ipratropium (Duoneb 3 Mg/0.5 Mg (3 Ml) Ud) 3 ml INH RQ4 PRN PRN Reason: Shortness of Breath Guaifenesin (Mucinex La) 600 mg PO BID [facility] Last Admin: 03/10/18 17:49 Dose: 600 mg Heparin Sodium (Porcine) (Heparin) 5,000 units SC Q12 [facility] Last Admin: 03/10/18 09:46 Dose: 5,000 units Doxycycline Hyclate 100 mg/ (Sodium Chloride) 100 mls @ 100 mls/hr IVPB Q12H [facility] PRN Reason: Protocol Last Admin: 03/10/18 16:50 Dose: 100 mls/hr Sodium Chloride (Sodium Chloride 0.9%) 1,000 mls @ 75 mls/hr IV .[id number] [facility] Last Admin: 03/10/18 16:52 Dose: 75 mls/hr Azithromycin 500 mg/ Sodium (Chloride) 250 mls @ 250 mls/hr IVPB DAILY [facility] PRN Reason: Protocol Methylprednisolone (Solu-Medrol) 40 mg IVP Q12H [facility] Last Admin: 03/10/18 09:46 Dose: 40 mg Ondansetron HCl (Zofran Inj) 4 mg IVP Q6 PRN PRN Reason: Nausea/Vomiting Pantoprazole Sodium (Protonix Ec Tab) 40 mg PO DAILY [facility] Last Admin: 03/10/18 10:47 Dose: 40 mg Pneumococcal Polyvalent Vaccine (Pneumovax 23 Vaccine) 0.5 ml IM .ONCE ONE Stop: 03/11/18 08:01 Saccharomyces Boulardii (Florastor) 250 mg PO DAILY [facility] Last Admin: 03/10/18 09:46 Dose: 250 mg - Labs Labs: 03/10/18 06:04 03/10/18 06:04
--- NOTE | 2018-03-10 21:51 | CON ---
Copied To: Jd Rivera MD Attending MD: Jd Rivera MD DATE: 03/10/2018 REASON FOR CONSULTATION: Sinusitis. HISTORY OF PRESENT ILLNESS: This is a 37-year-old female who presents to the ER with frontal headache. The patient is status post sinus surgery 3 weeks ago where she describes the frontal sinus as being opened. The pain is moderate to severe, constant, frontal, bilateral. There is no nasal discharge. No nasal congestion. PAST MEDICAL HISTORY: As noted in the chart by me. MEDICATIONS: As noted in the chart by me. PHYSICAL EXAMINATION: HEAD: Atraumatic and normocephalic. FACE: Good facial movements bilaterally. CONSTITUTIONAL: Well fed, well nourished. COMMUNICATION: Communicates well and appropriately. EXTERNAL NOSE AND EARS: No masses. No lesions. No erythema. No edema. INTERNAL NOSE: Edema noted. No masses, no lesions, no erythema. ORAL CAVITY AND OROPHARYNX: No masses, no lesions, no erythema, no edema. LIPS AND GUMS: No masses, no lesions, no erythema, no edema. NECK: Supple. THYROID: No thyromegaly, no goiter. LYMPH NODES: No lymphadenopathy of the neck. CAT scan was reviewed by me, it shows mucoperiosteal thickening of the sinus mucosa. This is a normal finding on CAT scan within 3 weeks after the patient had surgery, does not mean the patient has an infection. I will recommend a CAT scan of the head with contrast to rule out any possible intracranial extension of any possible infection of the sinus and the head. If the CAT scan of the head with contrast is negative, the patient can be discharged home and follow up with the surgeon who is her sinus surgeon as an outpatient. She says she has an appointment to see him next week. I will also try to contact the surgeon to let her know what is going on. Jd Rivera MD
[2018-03-11 00:12] VITALS: O2SAT 96
[2018-03-11] MEDS: Albuterol-Ipratrop 3 mg / 0.5 (3 ml) UD INH SCH ×3 (01:16→13:06)
[2018-03-11 07:35] VITALS: BP 122/78; PULSE 94; TEMP 98.2
[2018-03-11 07:36] LABS: BASO % 0.3 % (0.0-2.0); HEMOGLOBIN 14.2 g/dL (11.0-16.0); LYMPH % 20.7 % (20.0-40.0); MEAN CELL VOLUME 92.9 fL (81.0-99.0); MEAN CORPUSCULAR HEMOGLOBIN 31.8 pg (27.0-31.0); MEAN CORPUSCULAR HGB CONC 34.2 g/dL (33.0-37.0); MEAN PLATELET VOLUME 10.2 fL (7.2-11.7); MONO # 0.5 K/uL (0.0-0.8); MONO % 5.1 % (0.0-10.0); NEUT # 7.3 K/uL (1.8-7.0); NEUT % 73.9 % (50.0-75.0); RBC 4.46 Mil/uL (3.80-5.20); RED CELL DISTRIBUTION WIDTH 13.6 % (11.5-14.5)
[2018-03-11 07:43] LABS: WHITE BLOOD COUNT 9.9 K/uL (4.8-10.8)
[2018-03-11 07:54] LABS: ALB/GLOB RATIO 1.4 (1.0-2.1); ALBUMIN 3.8 g/dL (3.5-5.0); ALT/SGPT 24 U/L (9-52); AST/SGOT 14 U/L (14-36); BLOOD UREA NITROGEN 11 mg/dL (7-17); CALCIUM 9.1 mg/dl (8.6-10.4); GFR AFRICAN-AMERICAN > 60; GFR NON-AFRICAN AMERICAN > 60
[2018-03-11] MEDS ORDERED: Pneumococcal 23-Valent Vaccine IM ONE (08:00)
--- NOTE | 2018-03-11 08:15 | CP.PCM.PN ---
Subjective - Date & Time of Evaluation Date of Evaluation: 03/11/18 Time of Evaluation: 07:45 - Subjective Subjective: Hospitalist Progress Note Patient was seen and examined at 7:45 AM. Currently upon FULL ROS: Bifrontal headache not currently present Breathing is much better than yesterday with NO dyspnea/SOB Occasional cough dry is unchanged and usually occurs sometimes with deep breathing NO N/V: eating now without any issues and without abdominal pain Moving bowels normally NO rhinorrhea Reveals unspecified issues with eyes (she could not describe it) since her issues with her sinuses Exam: General: AAOX3, NAD HEENT: NCA, EOMI, PERRLA, NO cervical/supraclavicular/submandibular lymphadenopathy, NO pharyngeal erythema/exudate, Nasal Turbinates are nonerythematous/nonedematous, Oral Mucosa is moist Cardio: NS1 and NS2, NO M/R/G Resp: Scattered expiratory wheezing are now NO LONGER PRESENT. CTA B/L NO R/R/W GI: BSx4, Soft, NT, NO HSM, NO guarding/rebound tenderness Ext: Pulses are strong and equal, Capillary Refill is 2 seconds, NO edema Neuro: CN II through XII are grossly intact Assessments: 1). Asthma Exacerbation with POSITIVE MYCOPLASMA IGM 2). Chronic Sinusitis S/P Sinus Surgery 3). FELIX 4). Hypokalemia 5). N/V Chest X Ray did not show any active disease. Patient is speaking in full sentences and shows no signs of respiratory distress. CT Sinuses shows pansinusitis with bilateral nasal antrostomy CT Head shows NO evidence of intracranial infection with extensive chronic pansinusitis with s/p bilateral antrectomy/uncinectomy Patient is clinically improved. Spoke with Ditch Repairer who has been administering Duoneb: Peek Flow yesterday 03/10/18 was 150. As measured by me at the time of my exam it is 225. She continues to speak in full sentences with NO signs of respiratory distress. Vitals are stable. Patient is stable for discharge. The following instructions were explained to patient and a copy will need to be provided to her in Yoruba as she is more comfortable with Yoruba than Pashto: 1). Please follow up with the surgeon who performed your sinus surgery at [facility] in [place], [place] as scheduled for Friday March 16, 2018. Please bring a copy of all discharge paperwork from this hospital, CD copy of your CT Scan of Sinuses and Head, and all of your medications with you for the surgeon's review. 2). Please take the following medications as precribed and provided to you PRIOR to your discharge: Advair 250/50 mcg per actuation, 1 puff inhalation by mouth 2 times a day (8 AM and 8 PM) for 30 days only, Dispense #1, NO refills Albuterol 90 mcg per actuation, 2 puff inhalation by mouth every 6 hours ONLY NEEDED for severe shortness of breath, Dispense #1, NO refills Azithromycin 250 mg, 1 tablet by mouth 1 time a day (8 AM) through 03/20/18, Dispense #9, NO refills Prednisone 10 mg, 5 tablets by mouth at once on 03/12/18 at 8 AM, 4 tablet by mouth at once on 03/13/18 at 8 AM, 3 tablets by mouth at once on 03/14/18 at 8 AM , 2 tablets by mouth at once on 03/15/18 at 8 AM, and 1 tablet by mouth at once on 03/16/18, Dispense #15, NO refills 3). If you get short of breath, stop what your doing, sit down, concentrate on your breathing and take in slow deep breaths. If you still have shortness of breath after a few minutes, then it is appropriate for your to use Albuterol. 4). You may purchase Exedrin Sinus Headache without a prescription at your pharmacy and take 1 tablet by mouth every 6 hours ONLY FOR SEVERE HEADACHE. 5). Please schedule follow up appointment with your primary care physicians at the [facility] ([phone]) on Floor B of [facility] for coordination of your health care. Through them please make sure that you have scheduled follow up with the following specialists: Lung Physician for measurement of your lung volumes Eye Physician for examination of your eyes 6). Please take care and be well. Baltazar Viveros D.O. Objective - Vital Signs/Intake and Output Vital Signs (last 24 hours): Temp Pulse Resp BP Pulse Ox 98.2 F 94 H 20 122/78 96 03/11/18 07:33 03/11/18 07:33 03/11/18 07:33 03/11/18 07:33 03/11/18 07:33 Intake and Output: 08/09/18 08/09/18 06:59 18:59 Intake Total 1560 Balance 1560 - Medications Medications: Current Medications Acetaminophen (Tylenol 325mg Tab) 650 mg PO Q6 PRN PRN Reason: Headache Last Admin: 03/10/18 05:23 Dose: 650 mg Albuterol/Ipratropium (Duoneb 3 Mg/0.5 Mg (3 Ml) Ud) 3 ml INH RQ6 [facility] Last Admin: 03/11/18 07:21 Dose: 3 ml Albuterol/Ipratropium (Duoneb 3 Mg/0.5 Mg (3 Ml) Ud) 3 ml INH RQ4 PRN PRN Reason: Shortness of Breath Last Admin: 03/11/18 06:38 Dose: 3 ml Guaifenesin (Mucinex La) 600 mg PO BID [facility] Last Admin: 03/10/18 17:49 Dose: 600 mg Heparin Sodium (Porcine) (Heparin) 5,000 units SC Q12 [facility] Last Admin: 03/10/18 21:08 Dose: 5,000 units Doxycycline Hyclate 100 mg/ (Sodium Chloride) 100 mls @ 100 mls/hr IVPB Q12H [facility] PRN Reason: Protocol Last Admin: 03/11/18 05:06 Dose: 100 mls/hr Sodium Chloride (Sodium Chloride 0.9%) 1,000 mls @ 75 mls/hr IV .[id number] [facility] Last Admin: 03/10/18 23:51 Dose: Not Given Azithromycin 500 mg/ Sodium (Chloride) 250 mls @ 250 mls/hr IVPB DAILY [facility] PRN Reason: Protocol Last Admin: 03/10/18 18:00 Dose: 250 mls/hr Methylprednisolone (Solu-Medrol) 40 mg IVP Q12H [facility] Last Admin: 03/10/18 21:10 Dose: 40 mg Ondansetron HCl (Zofran Inj) 4 mg IVP Q6 PRN PRN Reason: Nausea/Vomiting Pantoprazole Sodium (Protonix Ec Tab) 40 mg PO DAILY [facility] Last Admin: 03/10/18 10:47 Dose: 40 mg Pneumococcal Polyvalent Vaccine (Pneumovax 23 Vaccine) 0.5 ml IM .ONCE ONE Stop: 03/11/18 08:01 Saccharomyces Boulardii (Florastor) 250 mg PO DAILY [facility] Last Admin: 03/10/18 09:46 Dose: 250 mg - Labs Labs: 03/11/18 07:23 03/11/18 07:23
[2018-03-11] MEDS: MethylPREDNISolone 40 mg Vial IVP SCH (08:44)
--- NOTE | 2018-03-11 10:05 | CP.PCM.DIS ---
<Messi Greeneophe - Last Filed: 03/11/18 17:42> Provider - Provider Date of Admission: 03/09/18 15:32 Attending physician: Alba Terrazas DO Time Spent in preparation of Discharge (in minutes): 45 Diagnosis - Discharge Diagnosis (1) Headache above the eye region Status: Chronic (2) Asthma Status: Chronic (3) Sinusitis Status: Chronic Hospital Course - Lab Results Lab Results: Micro Results 03/09/18 15:17 Blood Blood Culture - Preliminary NO GROWTH AFTER 24 HOURS 03/09/18 15:11 Blood Blood Culture - Preliminary NO GROWTH AFTER 24 HOURS Most Recent Lab Values WBC 9.9 K/uL (4.8-10.8) D 03/11/18 07:23 RBC 4.46 Mil/uL (3.80-5.20) 03/11/18 07:23 Hgb 14.2 g/dL (11.0-16.0) 03/11/18 07:23 Hct 41.4 % (34.0-47.0) 03/11/18 07:23 MCV 92.9 fL (81.0-99.0) 03/11/18 07:23 MCH 31.8 pg (27.0-31.0) H 03/11/18 07:23 MCHC 34.2 g/dL (33.0-37.0) 03/11/18 07:23 RDW 13.6 % (11.5-14.5) 03/11/18 07:23 Plt Count 236 K/uL (130-400) 03/11/18 07:23 MPV 10.2 fL (7.2-11.7) 03/11/18 07:23 Neut % (Auto) 73.9 % (50.0-75.0) 03/11/18 07:23 Lymph % (Auto) 20.7 % (20.0-40.0) 03/11/18 07:23 [place] % (Auto) 5.1 % (0.0-10.0) 03/11/18 07:23 Eos % (Auto) 0.0 % (0.0-4.0) 03/11/18 07:23 Baso % (Auto) 0.3 % (0.0-2.0) 03/11/18 07:23 Neut # (Auto) 7.3 K/uL (1.8-7.0) H 03/11/18 07:23 Lymph # (Auto) 2.0 K/uL (1.0-4.3) 03/11/18 07:23 [place] # (Auto) 0.5 K/uL (0.0-0.8) 03/11/18 07:23 Eos # (Auto) 0.0 K/uL (0.0-0.7) 03/11/18 07:23 Baso # (Auto) 0.0 K/uL (0.0-0.2) 03/11/18 07:23 Puncture Site Rra 03/09/18 19:50 pCO2 29 mm/Hg (35-45) L 03/09/18 19:50 pO2 92 mm/Hg (80-100) 03/09/18 19:50 HCO3 19.8 mmol/L (21-28) L 03/09/18 19:50 ABG pH 7.38 (7.35-7.45) 03/09/18 19:50 ABG Total CO2 18.1 mmol/L (22-28) L 03/09/18 19:50 ABG O2 Saturation 98.3 % (95-98) H 03/09/18 19:50 ABG Base Excess -6.6 mmol/L (-2.0-3.0) L 03/09/18 19:50 Rafael Test Na 03/09/18 19:50 ABG Potassium 3.9 mmol/L (3.6-5.2) 03/09/18 19:50 Sodium 141.0 mmol/l (132-148) 03/09/18 19:50 Chloride 109.0 mmol/L (98-107) H 03/09/18 19:50 Glucose 146 mg/dl (65-105) H 03/09/18 19:50 Lactate 5.2 mmol/L (0.7-2.1) H* 03/09/18 19:50 Crit Value Called To Aron mantilla 03/09/18 19:50 Crit Value Called By Liliana wilder 03/09/18 19:50 Crit Value Read Back Y 03/09/18 19:50 Blood Gas Notified Time 200203/09/18 19:50 Sodium 139 mmol/L (132-148) 03/11/18 07:23 Potassium 4.2 mmol/L (3.6-5.2) 03/11/18 07:23 Chloride 106 mmol/L (98-107) 03/11/18 07:23 Carbon Dioxide 23 mmol/L (22-30) 03/11/18 07:23 Anion Gap 14 (10-20) 03/11/18 07:23 BUN 11 mg/dL (7-17) 03/11/18 07:23 Creatinine 0.6 mg/dL (0.7-1.2) L 03/11/18 07:23 Est GFR ( Amer) > 60 03/11/18 07:23 Est GFR (Non-Af Amer) > 60 03/11/18 07:23 Random Glucose 123 mg/dL (65-105) H 03/11/18 07:23 Lactic Acid 2.2 mmol/L (0.7-2.1) H 03/10/18 02:53 Calcium 9.1 mg/dl (8.6-10.4) 03/11/18 07:23 Phosphorus 3.3 mg/dL (2.5-4.5) 03/11/18 07:23 Magnesium 1.9 mg/dL (1.6-2.3) 03/11/18 07:23 Total Bilirubin 0.2 mg/dL (0.2-1.3) 03/11/18 07:23 AST 14 U/L (14-36) 03/11/18 07:23 ALT 24 U/L (9-52) 03/11/18 07:23 Alkaline Phosphatase 68 U/L (38-126) 03/11/18 07:23 Total Protein 6.5 g/dL (6.3-8.3) 03/11/18 07:23 Albumin 3.8 g/dL (3.5-5.0) 03/11/18 07:23 Globulin 2.7 gm/dL (2.2-3.9) 03/11/18 07:23 Albumin/Globulin Ratio 1.4 (1.0-2.1) 03/11/18 07:23 Procalcitonin < 0.05 NG/ML (0.19-0.49) L 03/10/18 06:04 Beta HCG, Quant < 2.39 mIU/ML 03/09/18 21:00 Arterial Blood Potassium 3.9 mmol/L (3.6-5.2) 03/09/18 19:50 Urine HCG, Qual Negative (NEGATIVE) 03/09/18 21:00 Influenza Typ A,B (EIA) Negative for flu a/b (NEGATIVE) 03/09/18 20:00 Ur L.pneumophila Ag Negative (NEGATIVE) 03/09/18 19:57 Mycoplasma pneumon IgM Positive (NEGATIVE) H 03/10/18 06:04 - Hospital Course Hospital Course: History and Physical: Dr. Terrazas's Hospitalist Service CC: Vomiting and phlegm for 5 months HPI: 37 year old female with a past medical history of asthma comes in today complaining of vomiting and phlegm production for the past five months. The patient states the phlegm began five month ago and the vomiting began around one week ago. The patient describes the vomit as pheglm with a yellowish-green production. Of note, the patient was discharged from [facility] recently 05/03/17 when she treated for sinusitis and acute asthma exacerbation. Patient states she completed all of the antibiotics prescribed, however cannot recall the names of the medications. Patient was seen by Dr. Rivera who referred her to a Dr. Thorpe in [place] for two procedures completed in January 2018 and January 2018. Patient states she has a follow up with specialist. Patient denies any recent travel, changes in vision, dizziness, new foods in her diet, syncopal episodes, shortness of breath, palpitations, lower extremity swelling, ear pain , or any other complaints. ED Course: Duoneb 3ml INH, Methylprednisone 125mg IVP PMD: Dr. Esteban Pulmonary: Dr. Gayle ENT: Dr. Rivera PMHx: asthma PSHx: hysterectomy 2010, cholecystectomy 2012, appendectomy 2013 FMHx: mother, aunt and son has asthma Social: denied tobacco use but grew up with second hand smoke from mother and current coworkers, denied ETOH or drugs. 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 Pt complained of supraorbital nerve pain and a cluster headache behind eye. No acute medical issues contributory. Recommended f/u with ENT on 03/16 to evaluate. Discharge Exam - Head Exam Head Exam: ATRAUMATIC, NORMOCEPHALIC - Eye Exam Eye Exam: EOMI, Normal appearance. absent: Scleral icterus Pupil Exam: NORMAL ACCOMODATION, PERRL - ENT Exam ENT Exam: Mucous Membranes Moist - Neck Exam Neck exam: Full Rom - Respiratory Exam Respiratory Exam: Clear to PA & Lateral, NORMAL BREATHING PATTERN, UNREMARKABLE - Cardiovascular Exam Cardiovascular Exam: RRR, +S1, +S2. absent: Diastolic murmur, Systolic Murmur - GI/Abdominal Exam GI & Abdominal Exam: Normal Bowel Sounds, Soft. absent: Tenderness - Extremities Exam Extremities exam: full ROM, normal inspection, pedal pulses present - Back Exam Back exam: NORMAL INSPECTION - Neurological Exam Neurological exam: Alert, CN II-XII Intact, Normal Gait, Oriented x3 - Psychiatric Exam Psychiatric exam: Normal Affect, Normal Mood - Skin Skin Exam: Dry, Normal Color, Warm Discharge Plan - Discharge Medications Prescriptions: Albuterol HFA [Ventolin HFA 90 mcg/actuation (8 g)] 1 puff IH Q6 #1 inhaler Azithromycin 250 mg PO DAILY #14 tablet Fluticasone/Salmeterol 250/50 [Advair Diskus] 1 puff IH Q12 #1 puff predniSONE [Prednisone] 10 mg PO DAILY #15 tab - Follow Up Plan Condition: GOOD Disposition: HOME/ ROUTINE Instructions: Asthma, Adult (DC), Pneumonia, Adult (DC), Acute Headache (DC) Additional Instructions: The following instructions were explained to patient and a copy will need to be provided to her in Barbadian as she is more comfortable with Barbadian than Luxembourgish: 1). Please follow up with the surgeon who performed your sinus surgery at [facility] in [place], [place] as scheduled for Friday March 16, 2018. Please bring a copy of all discharge paperwork from this hospital, CD copy of your CT Scan of Sinuses and Head, and all of your medications with you for the surgeon's review. 2). Please take the following medications as precribed and provided to you PRIOR to your discharge: Advair 250/50 mcg per actuation, 1 puff inhalation by mouth 2 times a day (8 AM and 8 PM) for 30 days only, Dispense #1, NO refills Albuterol 90 mcg per actuation, 2 puff inhalation by mouth every 6 hours ONLY NEEDED for severe shortness of breath, Dispense #1, NO refills Azithromycin 250 mg, 1 tablet by mouth 1 time a day (8 AM) through 03/20/18, Dispense #9, NO refills Prednisone 10 mg, 5 tablets by mouth at once on 03/12/18 at 8 AM, 4 tablet by mouth at once on 03/13/18 at 8 AM, 3 tablets by mouth at once on 03/14/18 at 8 AM , 2 tablets by mouth at once on 03/15/18 at 8 AM, and 1 tablet by mouth at once on 03/16/18, Dispense #15, NO refills 3). If you get short of breath, stop what your doing, sit down, concentrate on your breathing and take in slow deep breaths. If you still have shortness of breath after a few minutes, then it is appropriate for your to use Albuterol. 4). You may purchase Exedrin Sinus Headache without a prescription at your pharmacy and take 1 tablet by mouth every 6 hours ONLY FOR SEVERE HEADACHE. 5). Please schedule follow up appointment with your primary care physicians at the [facility] ([phone]) on Floor B of [facility] for coordination of your health care. Through them please make sure that you have scheduled follow up with the following specialists: Lung Physician for measurement of your lung volumes Eye Physician for examination of your eyes 6). Please take care and be well. Baltazar Viveros D.O. 1). Por favor kamille milvia tom con kern cirujano que le hizo la cirugia de milly senos nasales en el [place], [place] ramila esta planeada para el 2017. Por favor lleve milvia copia de milly papeles del eleazar de irma hopital , milvia copia del CD de kern CT scan de milly senos nasales y de la bryan, y lleve todos milly medicamentos con usted para que el cirujano lo revise 2). Por favor tome los siguientes medicamentos ramila se le prescribieron y se le proveyeron antes de darle de eleazar: Advair 250/50 mcg 1 inhalacion por la boca 2 veces al isak (8am y 8pm) solo for 30 morales. albuterol 90 mcg, 2 inhalaciones por la boca cada 6 horas SOLO SI LO NECESITA cuando le falte el aire severamente. Azithromycin 250 mg, 1 tableta por la boca milvia vez al isak (8am) hasta el . Prednisone 10 mg, 5 tabletas a la vez por la boca el 03/12/18 (8am), 4 tabletas a la vez por la boca el 03/13/18 (8am), 3 tabletas a la vez por la boca el 03/14/18 (8am), 2 tabletas a la vez por la boca el 03/15/18 (8am), y 1 tableta por la boca el 03/16/18 (8am). 3). si siente que le falta el aire, pare de hacer lo que esta haciendo, sientese , concentrese en kern respiracion y no respire hondo, mas joce respire en periodos cortos, si siente que todavia le falta el aire despues de unos minutos , entonces sera mejor que use el albuterol. 4) Puede comprar Exedrin Sinus Headache sin receta medica en kern farmacia y iesha 1 tableta por la boca cada 6 horas SOLO PARA DOLOR DE CACABEZA KALEE. 5). Por favor kamille milvia tom para hacer milvia tom con kern doctor primario en la clinica de [facility] ([phone]) en el piso B para la coordinacion de kern cuidado. A traves de ellos se le maria r milvia tom para hacer citas de seguimiento con los siguientes especialistas: el doctor especialista de los pulmones para medir al volumen de milly pulmones el doctor de los ojos para que le examine milly ojos. 6). por favor cuidese y que irma joce Case BurnhamO Referrals: Janae Guillory MD [Staff Provider] - <Baltazar Viveros - Last Filed: 03/11/18 19:31> Provider - Provider Date of Admission: 03/09/18 15:32 Attending physician: Alba Terrazas DO Time Spent in preparation of Discharge (in minutes): 40 Hospital Course - Lab Results Lab Results: Micro Results 03/09/18 15:17 Blood Blood Culture - Preliminary NO GROWTH AFTER 48 HOURS 03/09/18 15:11 Blood Blood Culture - Preliminary NO GROWTH AFTER 48 HOURS 03/11/18 08:04 Sputum Gram Stain - Preliminary Most Recent Lab Values WBC 9.9 K/uL (4.8-10.8) D 03/11/18 07:23 RBC 4.46 Mil/uL (3.80-5.20) 03/11/18 07:23 Hgb 14.2 g/dL (11.0-16.0) 03/11/18 07:23 Hct 41.4 % (34.0-47.0) 03/11/18 07:23 MCV 92.9 fL (81.0-99.0) 03/11/18 07:23 MCH 31.8 pg (27.0-31.0) H 03/11/18 07:23 MCHC 34.2 g/dL (33.0-37.0) 03/11/18 07:23 RDW 13.6 % (11.5-14.5) 03/11/18 07:23 Plt Count 236 K/uL (130-400) 03/11/18 07:23 MPV 10.2 fL (7.2-11.7) 03/11/18 07:23 Neut % (Auto) 73.9 % (50.0-75.0) 03/11/18 07:23 Lymph % (Auto) 20.7 % (20.0-40.0) 03/11/18 07:23 [place] % (Auto) 5.1 % (0.0-10.0) 03/11/18 07:23 Eos % (Auto) 0.0 % (0.0-4.0) 03/11/18 07:23 Baso % (Auto) 0.3 % (0.0-2.0) 03/11/18 07:23 Neut # (Auto) 7.3 K/uL (1.8-7.0) H 03/11/18 07:23 Lymph # (Auto) 2.0 K/uL (1.0-4.3) 03/11/18 07:23 [place] # (Auto) 0.5 K/uL (0.0-0.8) 03/11/18 07:23 Eos # (Auto) 0.0 K/uL (0.0-0.7) 03/11/18 07:23 Baso # (Auto) 0.0 K/uL (0.0-0.2) 03/11/18 07:23 Puncture Site Rra 03/09/18 19:50 pCO2 29 mm/Hg (35-45) L 03/09/18 19:50 pO2 92 mm/Hg (80-100) 03/09/18 19:50 HCO3 19.8 mmol/L (21-28) L 03/09/18 19:50 ABG pH 7.38 (7.35-7.45) 03/09/18 19:50 ABG Total CO2 18.1 mmol/L (22-28) L 03/09/18 19:50 ABG O2 Saturation 98.3 % (95-98) H 03/09/18 19:50 ABG Base Excess -6.6 mmol/L (-2.0-3.0) L 03/09/18 19:50 Rafael Test Na 03/09/18 19:50 ABG Potassium 3.9 mmol/L (3.6-5.2) 03/09/18 19:50 Sodium 141.0 mmol/l (132-148) 03/09/18 19:50 Chloride 109.0 mmol/L (98-107) H 03/09/18 19:50 Glucose 146 mg/dl (65-105) H 03/09/18 19:50 Lactate 5.2 mmol/L (0.7-2.1) H* 03/09/18 19:50 Crit Value Called To Aron mantilla 03/09/18 19:50 Crit Value Called By Liliana wilder 03/09/18 19:50 Crit Value Read Back Y 03/09/18 19:50 Blood Gas Notified Time 200203/09/18 19:50 Sodium 139 mmol/L (132-148) 03/11/18 07:23 Potassium 4.2 mmol/L (3.6-5.2) 03/11/18 07:23 Chloride 106 mmol/L (98-107) 03/11/18 07:23 Carbon Dioxide 23 mmol/L (22-30) 03/11/18 07:23 Anion Gap 14 (10-20) 03/11/18 07:23 BUN 11 mg/dL (7-17) 03/11/18 07:23 Creatinine 0.6 mg/dL (0.7-1.2) L 03/11/18 07:23 Est GFR ( Amer) > 60 03/11/18 07:23 Est GFR (Non-Af Amer) > 60 03/11/18 07:23 Random Glucose 123 mg/dL (65-105) H 03/11/18 07:23 Lactic Acid 2.2 mmol/L (0.7-2.1) H 03/10/18 02:53 Calcium 9.1 mg/dl (8.6-10.4) 03/11/18 07:23 Phosphorus 3.3 mg/dL (2.5-4.5) 03/11/18 07:23 Magnesium 1.9 mg/dL (1.6-2.3) 03/11/18 07:23 Total Bilirubin 0.2 mg/dL (0.2-1.3) 03/11/18 07:23 AST 14 U/L (14-36) 03/11/18 07:23 ALT 24 U/L (9-52) 03/11/18 07:23 Alkaline Phosphatase 68 U/L (38-126) 03/11/18 07:23 Total Protein 6.5 g/dL (6.3-8.3) 03/11/18 07:23 Albumin 3.8 g/dL (3.5-5.0) 03/11/18 07:23 Globulin 2.7 gm/dL (2.2-3.9) 03/11/18 07:23 Albumin/Globulin Ratio 1.4 (1.0-2.1) 03/11/18 07:23 Procalcitonin < 0.05 NG/ML (0.19-0.49) L 03/10/18 06:04 Beta HCG, Quant < 2.39 mIU/ML 03/09/18 21:00 Arterial Blood Potassium 3.9 mmol/L (3.6-5.2) 03/09/18 19:50 Urine HCG, Qual Negative (NEGATIVE) 03/09/18 21:00 Influenza Typ A,B (EIA) Negative for flu a/b (NEGATIVE) 03/09/18 20:00 Ur L.pneumophila Ag Negative (NEGATIVE) 03/09/18 19:57 Mycoplasma pneumon IgM Positive (NEGATIVE) H 03/10/18 06:04 Attending/Attestation - Attestation I have personally seen and examined this patient.: Yes I have fully participated in the care of the patient.: Yes I have reviewed all pertinent clinical information, including history, physical exam and plan: Yes Notes (Text): 03/11/18 19:30 Please also see my progress note Baltazar Viveros D.O.
[2018-03-11] MEDS: Pantoprazole 40 mg EC Tab PO SCH (10:59)
[2018-03-11] MEDS: Saccharomyces Boulardi 250 mg Cap PO SCH (10:59)
[2018-03-11] MEDS: guaiFENesin 600 mg ER Tab PO SCH (10:59)
[2018-03-11] MEDS: Azithromycin 500 MG in Sodium Chloride 0.9% 250 ML IVPB SCH (11:00)
== END 2018-03-11 13:52 | disposition home or self-care (01) ==
LOC: C.ER 12:28 → C.9E 15:32 → C.3T 20:06
PROVIDERS: ADMIT Hospitalist; ATTEND Hospitalist
DX: G44.009 Cluster headache syndrome, unspecified, not intractable (principal); J45.901 Unspecified asthma with (acute) exacerbation; J32.9 Chronic sinusitis, unspecified; Z82.5 Family history of asthma and other chronic lower respiratory diseases
CPT/HCPCS: 36415; 70460; 70486; 71045; 71046; 80053; 82803; 83605; 83735; 84100; 84145; 84702; 84703; 85025; 86738; 87040; 87070; 87449; 87804; 90471; 90732; 94150; 94640; 96360; 96365; 96366; 96374; 99285; G0378; J0456; J1644; J2920; J3480; J7030; J7050; Q9967

== ENCOUNTER 2018-03-27 21:43 | Emergency (ER) | payer OTHER ==
[2018-03-27 21:43] VITALS: BMI 29.8
[2018-03-27] MEDS ORDERED: Albuterol-Ipratrop 3 mg / 0.5 (3 ml) UD ONE ×3 (21:52→23:26)
[2018-03-27 22:06] VITALS: TEMP 98.4
[2018-03-27] MEDS ORDERED: DiphenhydrAMINE 50 mg/ml Inj IVP STA (22:08)
--- NOTE | 2018-03-27 22:08 | C.PDOC ---
History Of Present Illness The patient presents to the ED for evaluation of shortness of breath which began prior to arrival. Patient has known allergy to Tylenol and Ibuprofen. She took a tablet of Excedrin prior to onset of symptoms. Patient appears anxious and is able to speak in 1-2 word sentences. She denies throat swelling sensation , cough, vomiting. Time Seen by Provider: 03/27/18 22:06 Chief Complaint (Nursing): Allergic Reaction History Per: Patient History/Exam Limitations: no limitations Onset/Duration Of Symptoms: Hrs Current Symptoms Are (Timing): Still Present Possible Cause: Medication Associated Symptoms: denies: Trouble Swallowing Home/EMS Treatment: None Severity: Mild Pain Scale Rating Of: 3 Recent travel outside of the [place]: No Additional History Per: Patient Past Medical History Reviewed: Historical Data, Nursing Documentation, Vital Signs Vital Signs: Last Vital Signs Temp 98.4 F 03/27/18 21:52 Pulse 113 H 03/27/18 21:52 Resp 18 03/27/18 22:50 BP 116/73 03/27/18 21:52 Pulse Ox 96 03/27/18 22:50 - Medical History PMH: Asthma Surgical History: Appendectomy, Cholecystectomy - [facility]ovie Procedures ASSISTANCE WITH RESPIRATORY VENTILATION, 24-96 HRS, CPAP (04/27/17) Family History: States: No Known Family Hx - Social History Hx Tobacco Use: No Hx Alcohol Use: No Hx Substance Use: No - Immunization History Hx Tetanus Toxoid Vaccination: No Hx Influenza Vaccination: No Hx Pneumococcal Vaccination: No Review Of Systems Constitutional: Negative for: Fever, Chills ENT: Negative for: Mouth Swelling, Throat Swelling Cardiovascular: Negative for: Chest Pain, Palpitations Respiratory: Positive for: Shortness of Breath. Negative for: Cough Gastrointestinal: Negative for: Nausea, Vomiting, Abdominal Pain Skin: Negative for: Rash, Lesions, Jaundice, Bruising Neurological: Negative for: Weakness, Numbness Physical Exam - Physical Exam Appears: Non-toxic, Other (in severe distress, slightly anxious ) Skin: Warm, Dry, No Rash Head: Normacephalic Eye(s): bilateral: Normal Inspection Oral Mucosa: Moist, No Drooling Tongue: No Swelling Lips: No Swelling Throat: No Erythema, No Exudate, No Drooling Neck: Supple Chest: Symmetrical, No Deformity, No Tenderness Cardiovascular: Rhythm Regular, No Murmur, Other (tachycardic ) Respiratory: Decreased Breath Sounds, Accessory Muscle Use (mild ), No Rales, No Rhonchi, Wheezing, Other (speaking in 1-2 word sentences ) Extremity: Normal ROM, Capillary Refill (less than 2 seconds) Neurological/Psych: Oriented x3 ED Course And Treatment O2 Sat by Pulse Oximetry: 97 (on RA) Pulse Ox Interpretation: Normal Progress Note: Benadryl IVP, Pepcid IVP, Solu-Medrol IVP, and IV Fluids given. pt speaking in coplete sentences. no wheezing Reevaluation Time: 00:41 Reassessment Condition: Improved Critical Care Time - Critical Care Note Total Time (in mins): 30 Documented critical care: time excludes all time spent performing seperately billable procedures. Medical Decision Making Medical Decision Making: Upon provider reevaluation patient is feeling better, is medically stable, and requires no further treatment in the ED at this time. Patient will be discharged home with Rx for prednisone, epipen. Counseling was provided and all questions were answered regarding diagnosis and need for follow up with the referred clinic. There is agreement to discharge plan. Return if symptoms persist or worsen. Disposition Counseled Patient/Family Regarding: Studies Performed, Diagnosis, Need For Followup, Rx Given - Disposition Referrals: [facility] [Outside] [facility] [Outside] Disposition: HOME/ ROUTINE Disposition Time: 22:08 Condition: FAIR Additional Instructions: Please return if symptoms recur. Do not take Excedrin Prescriptions: Epinephrine [Epipen] 0.3 mg IJ ONCE PRN #2 auto.injct PRN Reason: Anaphylaxis Prednisone [Deltasone] 20 mg PO DAILY #5 tablet Instructions: Asthma, Adult (DC), Adverse Drug Reactions, Adult (DC) Forms: [employer] (Bahraini) - Clinical Impression Clinical Impression: Allergic reaction caused by a drug, Asthma exacerbation - Scribe Statement The provider has reviewed the documentation as recorded by the Scribe (Talia Viveros) Provider Attestation: All medical record entries made by the Scribe were at my direction and personally dictated by me. I have reviewed the chart and agree that the record accurately reflects my personal performance of the history, physical exam, medical decision making, and the department course for this patient. I have also personally directed, reviewed, and agree with the discharge instructions and disposition. Decision To Admit - . Patient Diagnosis: Allergic reaction caused by a drug, Asthma exacerbation
[2018-03-27] MEDS ORDERED: Sodium Chloride 0.9% 1,000 ML IV ONE (22:09)
[2018-03-27] MEDS ORDERED: DiphenhydrAMINE 50 mg/ml Inj ONE (22:10)
[2018-03-27] MEDS: Albuterol-Ipratrop 3 mg / 0.5 (3 ml) UD IH SCH ×2 (22:59→23:24)
[2018-03-28] MEDS: Albuterol-Ipratrop 3 mg / 0.5 (3 ml) UD IH SCH (00:16)
[2018-03-28 01:01] VITALS: BP 110/70; PULSE 84; RESP 14; O2SAT 99
== END 2018-03-28 01:01 | disposition home or self-care (01) ==
LOC: C.ER 21:43
DX: J45.901 Unspecified asthma with (acute) exacerbation (principal); T50.995A Adverse effect of other drugs, medicaments and biological substances, initial encounter
CPT/HCPCS: 96374; 96375; 99291; J1200; J2930; J7030

== ENCOUNTER 2018-04-26 22:37 | Emergency (ER) | payer SELFPAY ==
[2018-04-26 22:38] VITALS: BMI 29.8
[2018-04-26 22:44] VITALS: PULSE 105
[2018-04-26] MEDS ORDERED: Albuterol-Ipratrop 3 mg / 0.5 (3 ml) UD ONE ×2 (22:48→23:35)
[2018-04-26] MEDS ORDERED: Albuterol-Ipratrop 3 mg / 0.5 (3 ml) UD INH STA (22:56)
[2018-04-27 00:11] VITALS: BP 144/97; RESP 20; TEMP 97.7
[2018-04-27 00:18] VITALS: O2SAT 93
--- NOTE | 2018-04-27 00:18 | C.PDOC ---
History Of Present Illness 37 year old female presents to the ER with a complaint of asthma exacerbation that has been almost consistently for the past year. Patient reports she ran out of her asthma medications. 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 Patient frequently visits local emergency rooms and receives 2 weeks of steroid tapers. She also has had multiple nasal surgeries with constant nasal congestion and no benefit. Denies fever or chills. Time Seen by Provider: 04/26/18 22:52 Chief Complaint (Nursing): Shortness Of Breath History Per: Patient History/Exam Limitations: no limitations Onset/Duration Of Symptoms: Days, Intermittent Episodes Current Symptoms Are (Timing): Still Present Initiating Event: Out Of Medications Current Respiratory Medications: See Home Med List Associated Symptoms: denies: Fever, Chills Recent travel outside of the [place]: No Past Medical History Reviewed: Historical Data, Nursing Documentation, Vital Signs Vital Signs: Last Vital Signs Temp 97.7 F 04/27/18 00:10 Pulse 105 H 04/27/18 00:10 Resp 20 04/27/18 00:10 BP 144/97 H 04/27/18 00:10 Pulse Ox 93 L 04/27/18 00:23 - Medical History PMH: Asthma Surgical History: Appendectomy, Cholecystectomy - [facility] Procedures ASSISTANCE WITH RESPIRATORY VENTILATION, 24-96 HRS, CPAP (04/27/17) Family History: States: No Known Family Hx - Social History Hx Tobacco Use: No Hx Alcohol Use: No Hx Substance Use: No - Immunization History Hx Tetanus Toxoid Vaccination: No Hx Influenza Vaccination: No Hx Pneumococcal Vaccination: No Review Of Systems Constitutional: Negative for: Fever, Chills Cardiovascular: Negative for: Chest Pain, Palpitations Respiratory: Positive for: Shortness of Breath. Negative for: Cough Gastrointestinal: Negative for: Nausea, Vomiting Neurological: Negative for: Weakness, Numbness Physical Exam - Physical Exam Appears: Non-toxic, Other (Mild respiratory distress. Central obesity, thin lower extremity, moonfaced.) Skin: Normal Color, Warm, Dry Head: Atraumatic, Normacephalic Eye(s): bilateral: Normal Inspection Nose: Normal Oral Mucosa: Moist Throat: Normal, No Erythema, No Exudate, No Other (Swelling) Neck: Normal, Supple Chest: Symmetrical, No Tenderness Cardiovascular: Rhythm Regular Respiratory: No Rales, Rhonchi (Expiratory), Wheezing (Expiratory) Gastrointestinal/Abdominal: Soft, No Tenderness Back: No CVA Tenderness Neurological/Psych: Oriented x3, Normal Speech ED Course And Treatment O2 Sat by Pulse Oximetry: 93 Medical Decision Making Medical Decision Making: frequent asthma exacerbations multiple ED visits to this and area ED's almost constantly taking PO steroids for +/- the past calendar year No cats/dogs @ home no no exposure to cigarette smoke no cockroach dander. Poor insight in to not running out of nebs treatments lost her Epi-Pen Rx never got the Aerochamber Spacer thus persists with poor/ineffective PO MDI technique. lungs clear in ED after neb tx's x 2 WITHOUT steroids suggesting may focus on nebs treatments and better more effective MDI treatments instead of constant steroids. Steady weight gain, though minimal PO intake, with central obesity and cedeno face c/w developing Edilia's Syndrome. Disposition Doctor Will See Patient In The: Office Counseled Patient/Family Regarding: Studies Performed, Diagnosis - Disposition Referrals: [facility] [Outside] [facility] [Outside] [facility] [Outside] [facility] [Outside] Maxx Gayle MD [Staff Provider] - Disposition: HOME/ ROUTINE Disposition Time: 00:23 Condition: GOOD Additional Instructions: Duoneb 2 ampulas cada 3-4 horas (5-7 veces al isak) Loratidine 10 mg en la manana Singulair 10 mg en la noche Albuterol MDI (puffer) 2 puffs cada 4 horas afuera de la casa Siempre usa con el Aerochamber Spacer (tubo plastico) se hace mas effectivo Epi Pen En silas de reaccion' allergica y asthma muy dianna Sigue en la [facility] Suspechando Sindrome de [place] ACTH/24 hr urine Cortisol Sigue con Dr. Gayle- Especialist de los Pulmones/Asthma [place] para hacer tom Aileen tratamientos/cursos de esteroides/prednisona muy en seguida. Se provoca Sumner Syndrome. Prescriptions: Albuterol HFA [Ventolin HFA 90 mcg/actuation (8 g)] 200 puff IH Q4H PRN #2 puff PRN Reason: asthma Albuterol/Ipratropium [Duoneb 3 MG/3 Ml-0.5 MG/3 Ml 3 Ml] 6 ml IH Q4H PRN #100 neb PRN Reason: asthma Epinephrine HCl [Epipen Auto-Injector] 0.3 mg MR ONCE PRN #1 ml PRN Reason: Anaphylaxis Loratadine 10 mg PO DAILY #30 tablet Montelukast [Singulair] 10 mg PO HS #30 tab Spacer, Inhalation [Aerochamber] 1 dev IH DAILY #1 dev Instructions: Edilia's Syndrome, Asthma in Adults, Rescue vs Controller Inhalers Forms: [employer] (Bulgarian) Print Language: [place] CITIZEN - Clinical Impression Clinical Impression: Asthma exacerbation - Scribe Statement The provider has reviewed the documentation as recorded by the Scribshawn Reed All medical record entries made by the Scribe were at my direction and personally dictated by me. I have reviewed the chart and agree that the record accurately reflects my personal performance of the history, physical exam, medical decision making, and the department course for this patient. I have also personally directed, reviewed, and agree with the discharge instructions and disposition.
== END 2018-04-27 00:50 | disposition home or self-care (01) ==
LOC: C.ER 22:37
DX: J45.901 Unspecified asthma with (acute) exacerbation (principal)

== ENCOUNTER 2018-05-08 08:13 | Emergency (ER) | payer OTHER ==
[2018-05-08 08:13] VITALS: BMI 29.8
[2018-05-08 08:30] VITALS: TEMP 98.4
[2018-05-08] MEDS ORDERED: Albuterol-Ipratrop 3 mg / 0.5 (3 ml) UD IH STA (09:02)
[2018-05-08] MEDS ORDERED: Albuterol 0.083% Inhal Sol (2.5 mg/3 mL) UD INH STA (09:02)
[2018-05-08] MEDS ORDERED: Albuterol 0.083% Inhal Sol (2.5 mg/3 mL) UD IH STA (09:04)
--- NOTE | 2018-05-08 09:22 | RAD ---
Date of service: 05/08/2018 HISTORY: cough/wheezing COMPARISON: Comparison chest 03/10/2018. TECHNIQUE: Chest PA and lateral FINDINGS: LUNGS: Increased/coarsened interstitial markings; rule out sequela of reactive/inflammatory airway disease or viral illness. Bibasilar atelectasis and/or infiltrates. PLEURA: No significant pleural effusion identified. No pneumothorax apparent. CARDIOVASCULAR: Normal. OSSEOUS STRUCTURES: No significant abnormalities. VISUALIZED UPPER ABDOMEN: Normal. OTHER FINDINGS: None. IMPRESSION: Increased/coarsened interstitial markings; rule out sequela of reactive/inflammatory airway disease or viral illness. Bibasilar atelectasis and/or infiltrates. Note that the report was placed in PA review folder for follow up
[2018-05-08] MEDS ORDERED: Albuterol-Ipratrop 3 mg / 0.5 (3 ml) UD ONE (09:43)
[2018-05-08 11:27] VITALS: BP 123/90; PULSE 98; RESP 21; O2SAT 98
--- NOTE | 2018-05-08 11:44 | C.PDOC ---
History Of Present Illness 37 year old female patient presents to the ER with c/o SOB, congestion, cough, sore throat and ear irritation for x1 week. Patient has asthma and has been using steroids for x1 year. Patient reports she has gained 50 lbs since then and the steroids no longer help. Patient went to a [facility] who gave her more steroids and a nebulizer, with no relief. Patient was seen on 04/27 and was discharged with multiple medications and nebulizer. Patient states she is compliant with her medications. Patient denies smoking or going near allergens. Time Seen by Provider: 05/08/18 08:34 Chief Complaint (Nursing): Cough, Cold, Congestion History Per: Patient History/Exam Limitations: no limitations Onset/Duration Of Symptoms: Days (x1 week) Current Symptoms Are (Timing): Still Present Past Medical History Reviewed: Historical Data, Nursing Documentation, Vital Signs Vital Signs: Last Vital Signs Temp 98.4 F 05/08/18 08:27 Pulse 98 H 05/08/18 11:25 Resp 21 05/08/18 11:25 BP 123/90 05/08/18 11:25 Pulse Ox 98 05/08/18 11:25 - Medical History PMH: Asthma Surgical History: Appendectomy, Cholecystectomy - [facility] Procedures ASSISTANCE WITH RESPIRATORY VENTILATION, 24-96 HRS, CPAP (04/27/17) Family History: States: Unknown Family Hx - Social History Hx Tobacco Use: No Hx Alcohol Use: No Hx Substance Use: No - Immunization History Hx Tetanus Toxoid Vaccination: No Hx Influenza Vaccination: No Hx Pneumococcal Vaccination: No Review Of Systems Except As Marked, All Systems Reviewed And Found Negative. Constitutional: Negative for: Other (contact with allergens; smoking) ENT: Positive for: Nose Congestion, Throat Pain, Other (ear irritation) Respiratory: Positive for: Cough, Shortness of Breath Physical Exam - Physical Exam Appears: Well, Non-toxic, No Acute Distress Skin: Normal Color, Warm, Dry Head: Normacephalic Eye(s): bilateral: Normal Inspection, EOMI Ear(s): Bilateral: Normal Oral Mucosa: Moist Throat: Erythema, No Exudate Neck: Normal ROM, Supple Chest: Symmetrical, No Deformity Cardiovascular: Rhythm Regular Respiratory: No Rales, No Rhonchi, No Stridor, Wheezing (b/l) Neurological/Psych: Oriented x3, Normal Speech ED Course And Treatment O2 Sat by Pulse Oximetry: 98 (RA) Pulse Ox Interpretation: Normal - Other Rad Chest X-Ray: Read By Radiologist Interpretation: Accession No. : [id number]. Patient Name / ID : SELENE LEBLANC / [id number]. Exam Date : 05/08/2018 09:06:52 ( Approved ). Study Comment : Sex / Age : F / 37Y. Creator : Pedro Pablo Craig MD. Dictator : Pedro Pablo Craig MD. Diplomatic Interpreter : Blast Furnace Supervisor : Pedro Pablo Craig MD. Approver2 : Report Date : 05/08/2018 09:16:53. My Comment : . Date of service: 05/08/2018. HISTORY: cough/wheezing. COMPARISON: Comparison chest 03/10/2018. TECHNIQUE: Chest PA and lateral. FINDINGS: LUNGS: Increased/coarsened interstitial markings; rule out sequela of reactive/inflammatory airway disease or viral illness. Bibasilar atelectasis and/or infiltrates. PLEURA: No significant pleural effusion identified. No pneumothorax apparent. CARDIOVASCULAR: Normal. OSSEOUS STRUCTURES: No significant abnormalities. VISUALIZED UPPER ABDOMEN: Normal. OTHER FINDINGS: None. IMPRESSION: Increased/coarsened interstitial markings; rule out sequela of reactive/inflammatory airway disease or viral illness. Bibasilar atelectasis and/or infiltrates. Note that the report was placed in PA review folder for follow up Progress Note: Impression: SOB, congestion, cough, sore throat and ear irritation. Plans: -- CXR. -- albuterol. -- amoxcillin. -- Prednisone (refused). Reassess: Patient is resting comfortably and reports she feels better. Patient still has diffused wheezing. Patient given amoxicillin for pharyngitis. Patient is discharged and referred to a different environmental health physician. Disposition - Disposition Referrals: Cameron Magdaleno MD [Staff Provider] - Disposition: HOME/ ROUTINE Disposition Time: 11:42 Condition: IMPROVED Additional Instructions: Follow up with PMD and [facility] within 1-2 days. Return to ED if feel worse. 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 - Scribe Statement The provider has reviewed the documentation as recorded by the Chris Mcdaniels Do All medical record entries made by the Michelleibshawn were at my direction and personally dictated by me. I have reviewed the chart and agree that the record accurately reflects my personal performance of the history, physical exam, medical decision making, and the department course for this patient. I have also personally directed, reviewed, and agree with the discharge instructions and disposition.
== END 2018-05-08 11:56 | disposition home or self-care (01) ==
LOC: C.ER 08:13
DX: J02.9 Acute pharyngitis, unspecified (principal); J45.901 Unspecified asthma with (acute) exacerbation

== ENCOUNTER 2018-07-06 23:15 | Emergency (ER) | payer SELFPAY ==
[2018-07-06 23:16] VITALS: BMI 29.8
[2018-07-06 23:39] VITALS: O2SAT 97
[2018-07-07] MEDS ORDERED: Amoxicillin-Clav 875-125 mg Tab PO STA (00:02)
[2018-07-07] MEDS ORDERED: Amoxicillin-Clav 875-125 mg Tab PO ONE (00:07)
--- NOTE | 2018-07-07 00:25 | C.PDOC ---
History Of Present Illness 37 year old female with a Hx of sinusitis presents to the ER with a complaint of nasal congestion associated with facial pain and dry cough for the past 4 days. Patient reports developing right ear pain and subjective fever today. She has been using OTC nasal spray and tylenol with no relief. Denies chest pain or SOB. Time Seen by Provider: 07/06/18 23:47 Chief Complaint (Nursing): ENT Problem History Per: Patient History/Exam Limitations: no limitations Onset/Duration Of Symptoms: Days (4) Current Symptoms Are (Timing): Still Present Location Of Pain: Sinus/es Sick Contacts (Context): None Associated Symptoms: Fever (Subjective), Cough, Nasal Congestion, Other (Facial pain. No chest pain or SOB.). denies: Sputum Ear Symptoms: Left: None, Right: Ear Pain Recent travel outside of the [place]: No Past Medical History Reviewed: Historical Data, Nursing Documentation, Vital Signs Vital Signs: Last Vital Signs Temp 98.4 F 07/06/18 23:30 Pulse 110 H 07/06/18 23:30 Resp 22 07/06/18 23:30 BP 118/82 07/06/18 23:30 Pulse Ox 97 07/06/18 23:30 - Medical History PMH: Asthma Surgical History: Appendectomy, Cholecystectomy - [facility] Procedures ASSISTANCE WITH RESPIRATORY VENTILATION, 24-96 HRS, CPAP (04/27/17) Family History: States: Unknown Family Hx - Social History Hx Tobacco Use: No Hx Alcohol Use: No Hx Substance Use: No - Immunization History Hx Tetanus Toxoid Vaccination: No Hx Influenza Vaccination: No Hx Pneumococcal Vaccination: No Review Of Systems Constitutional: Positive for: Fever (Subjective) ENT: Positive for: Ear Pain (Right), Nose Congestion Cardiovascular: Negative for: Chest Pain Respiratory: Positive for: Cough. Negative for: Shortness of Breath, Sputum Musculoskeletal: Positive for: Other (Facial pain) Physical Exam - Physical Exam Appears: Non-toxic Skin: Normal Color, Warm, Dry Head: Atraumatic, Normacephalic, Tenderness (Maxillary sinus) Eye(s): bilateral: Normal Inspection Ear(s): Left: Normal, Right: Other (Hyperemic canal and TM with minimal bulging) Nose: Other (Moderately enlarged turbinates with thick yellow mucous) Oral Mucosa: Moist Throat: Normal, No Erythema, No Exudate Neck: Normal, No Midline Cervical Tenderness, No Paracervical Tenderness, Supple Neurological/Psych: Oriented x3, Normal Speech ED Course And Treatment O2 Sat by Pulse Oximetry: 97 (Room air) Pulse Ox Interpretation: Normal Progress Note: Benadryl and augmentin administered. Patient is resting comfortably in the ER in no acute distress, vitals are stable, will discharge home with Rx and instructions to follow up with PMD. Disposition Counseled Patient/Family Regarding: Diagnosis, Need For Followup, Rx Given - Disposition Disposition: HOME/ ROUTINE Disposition Time: 00:11 Condition: STABLE Additional Instructions: Please follow up with PMD / ENT Take medications as directed Do sinus lavage Return to ER if worse Prescriptions: Amoxicillin/Clavulanate [Augmentin 875 MG-125 MG] 1 tab PO BID #14 tab Cetirizine HCl [Zyrtec] 10 mg PO DAILY #14 capsule Fluticasone Propionate [Flonase Allergy Relief] 1 applic NS BID #1 spray.susp Instructions: Ear Infections (Otitis Media) (DC), Sinusitis, Adult (DC) Forms: [employer] (Iranian) Print Language: CITIZEN OF [place] - Clinical Impression Clinical Impression: Otitis media, Sinusitis - PA / FUR BUYER / Resident Statement MD/DO has reviewed & agrees with the documentation as recorded. - Scribe Statement The provider has reviewed the documentation as recorded by the Michelleibshawn Reed All medical record entries made by the Michelleibshawn were at my direction and personally dictated by me. I have reviewed the chart and agree that the record accurately reflects my personal performance of the history, physical exam, medical decision making, and the department course for this patient. I have also personally directed, reviewed, and agree with the discharge instructions and disposition.
[2018-07-07 00:28] VITALS: BP 125/81; PULSE 90; RESP 18; TEMP 98.2
== END 2018-07-07 00:32 | disposition home or self-care (01) ==
LOC: C.ER 23:15
DX: H66.91 Otitis media, unspecified, right ear (principal); J32.9 Chronic sinusitis, unspecified

== ENCOUNTER 2018-11-01 21:56 | Emergency (ER) | payer SELFPAY ==
[2018-11-01 21:56] VITALS: BMI 29.8
[2018-11-01 22:11] VITALS: TEMP 98.2; O2SAT 93
--- NOTE | 2018-11-01 22:21 | C.PDOC ---
History Of Present Illness 38 year old female presents with asthma exacerbation for the past 2 days. No improvement with MDI. Denies fever. ASTHMA EXAC X 2 DAYS. NO IMPROVE W MDI. NO FEVER. ALSO CO CHRONIC B/L UPPER BACK PAIN X 1 YR. EVAL @ CLINIC FOR SAME BUT NO PULM EVAL. EXAM NONTOXIC HEENT NEG LUNGS B/L EXP WHEEZE TACHYPNEA, RETRACT CV RRR REMAINDER NEG Time Seen by Provider: 11/01/18 22:19 Chief Complaint (Nursing): Cough, Cold, Congestion History Per: Patient History/Exam Limitations: no limitations Onset/Duration Of Symptoms: Hrs Current Symptoms Are (Timing): Still Present Associated Symptoms: denies: Fever Recent travel outside of the [place]: No Past Medical History Reviewed: Historical Data, Nursing Documentation, Vital Signs Vital Signs: Last Vital Signs Temp 98.2 F 11/01/18 22:08 Pulse 88 11/01/18 22:08 Resp 20 11/01/18 22:08 BP 119/89 11/01/18 22:08 Pulse Ox 93 L 11/01/18 22:08 - Medical History PMH: Asthma Surgical History: Appendectomy, Cholecystectomy - [facility] Procedures ASSISTANCE WITH RESPIRATORY VENTILATION, 24-96 HRS, CPAP (04/27/17) Family History: States: Unknown Family Hx - Social History Hx Tobacco Use: No Hx Alcohol Use: No Hx Substance Use: No - Immunization History Hx Tetanus Toxoid Vaccination: No Hx Influenza Vaccination: No Hx Pneumococcal Vaccination: No Review Of Systems Except As Marked, All Systems Reviewed And Found Negative. Constitutional: Negative for: Fever, Chills Respiratory: Positive for: Cough, Shortness of Breath, Wheezing Physical Exam - Physical Exam Appears: Non-toxic Skin: Normal Color, Warm Head: Atraumatic, Normacephalic Eye(s): bilateral: Normal Inspection Ear(s): Bilateral: Normal Nose: Normal Oral Mucosa: Moist Throat: Normal, No Erythema, No Exudate Neck: Normal, Supple Chest: Symmetrical Cardiovascular: Rhythm Regular Respiratory: Accessory Muscle Use, No Rales, No Rhonchi, Wheezing (Bilateral expiratory), Other (Tachypnea) Gastrointestinal/Abdominal: Soft, No Tenderness Neurological/Psych: Oriented x3, Normal Speech ED Course And Treatment O2 Sat by Pulse Oximetry: 93 (Room air) Pulse Ox Interpretation: Normal Reevaluation Time: 23:26 Reassessment Condition: Improved (PT NOW STATES S/P EVAL DR VIDALES FOR SINUSITIS, WAS ON PREDNISONE X 1 YR BUT WAS STOPPED. TALKING ON CELL PHONE WO DIFF. CTA B/L NO W/R/R NO RETRACTION VSS) Medical Decision Making Medical Decision Making: Plan: * Duoneb * Tessalon perles * Tylenol * Tramadol * Prednisone Disposition Counseled Patient/Family Regarding: Diagnosis, Need For Followup, Rx Given - Disposition Referrals: [facility] [Outside] [facility] [Outside] Disposition: HOME/ ROUTINE Disposition Time: 23:26 Condition: IMPROVED Prescriptions: Albuterol HFA [Ventolin HFA 90 mcg/actuation (8 g)] 1 puff IH Q4 #1 inhaler Benzonatate [Tessalon Perles] 200 mg PO TID PRN #15 sgl PRN Reason: Cough predniSONE [Prednisone] 60 mg PO DAILY #12 tab Instructions: Asthma, Adult (DC) Forms: [employer] (Nepali), Work Excuse Print Language: IRISH - Clinical Impression Clinical Impression: Asthma exacerbation - Scribe Statement The provider has reviewed the documentation as recorded by the Scribe Abhijit Reed All medical record entries made by the Scribe were at my direction and personally dictated by me. I have reviewed the chart and agree that the record accurately reflects my personal performance of the history, physical exam, medical decision making, and the department course for this patient. I have also personally directed, reviewed, and agree with the discharge instructions and disposition.
[2018-11-01] MEDS ORDERED: Tramadol 25 mg PO STA (22:22)
[2018-11-01] MEDS ORDERED: Tramadol 25 mg ONE (22:39)
[2018-11-01] MEDS ORDERED: Albuterol-Ipratrop 3 mg / 0.5 (3 ml) UD ONE (22:46)
[2018-11-01] MEDS: Albuterol-Ipratrop 3 mg / 0.5 (3 ml) UD IH SCH ×2 (22:47→23:00)
[2018-11-01 23:35] VITALS: BP 114/78; PULSE 92; RESP 22
== END 2018-11-02 | disposition home or self-care (01) ==
LOC: C.ER 21:56
DX: J45.901 Unspecified asthma with (acute) exacerbation (principal)

== ENCOUNTER 2018-11-25 12:47 | Outpatient (CLI) | payer OTHER | END 2018-11-25 12:48 | disposition home or self-care (01) | LOC: C.LAB 12:47 | DX: J45.40 Moderate persistent asthma, uncomplicated (principal) ==

== ENCOUNTER 2018-12-10 05:46 | Emergency (ER) | payer OTHER ==
[2018-12-10 05:46] VITALS: BMI 29.8
[2018-12-10] MEDS ORDERED: Albuterol-Ipratrop 3 mg / 0.5 (3 ml) UD INH STA ×3 (06:17→07:40)
[2018-12-10] MEDS ORDERED: DiphenhydrAMINE 50 mg/ml Inj IVP STA (06:43)
--- NOTE | 2018-12-10 06:47 | C.PDOC ---
History Of Present Illness 38 year old female presents with SOB, cough, chest tightness, and wheezing for the past 2 days associated with nasal congestion. Patient has been using albuterol inhaler and loratadine for allergies with no relief. Denies sore throat or fever. Time Seen by Provider: 12/10/18 06:07 Chief Complaint (Nursing): Shortness Of Breath History Per: Patient History/Exam Limitations: no limitations Onset/Duration Of Symptoms: Days (2) Current Symptoms Are (Timing): Still Present Current Respiratory Medications: Albuterol Associated Symptoms: Other (SOB, cough, chest tightness, wheezing) Past Medical History Reviewed: Historical Data, Nursing Documentation, Vital Signs Vital Signs: Last Vital Signs Temp 98.2 F 12/10/18 05:56 Pulse 94 H 12/10/18 05:56 Resp 24 12/10/18 05:56 BP 143/95 H 12/10/18 05:56 Pulse Ox 95 12/10/18 05:56 Primary Care Provider: Clinic,[facility] - Medical History PMH: Asthma Surgical History: Appendectomy, Cholecystectomy - [facility] Procedures ASSISTANCE WITH RESPIRATORY VENTILATION, 24-96 HRS, CPAP (04/27/17) Family History: States: Unknown Family Hx - Social History Hx Tobacco Use: No Hx Alcohol Use: No Hx Substance Use: No - Immunization History Hx Tetanus Toxoid Vaccination: No Hx Influenza Vaccination: No Hx Pneumococcal Vaccination: No Review Of Systems Constitutional: Negative for: Fever, Chills ENT: Negative for: Throat Pain Cardiovascular: Negative for: Chest Pain, Palpitations Respiratory: Positive for: Cough, Shortness of Breath, Wheezing, Other (Chest tightness) Skin: Negative for: Rash Physical Exam - Physical Exam Appears: Non-toxic Skin: Normal Color, Warm Head: Atraumatic, Normacephalic Eye(s): bilateral: Normal Inspection Ear(s): Bilateral: Normal Nose: Other (Enlarged turbinates) Oral Mucosa: Moist Throat: Normal, No Erythema, No Exudate Chest: Symmetrical, No Tenderness Cardiovascular: Rhythm Regular Respiratory: Decreased Breath Sounds, No Rales, No Rhonchi, Wheezing (Moderate expiratory) Neurological/Psych: Oriented x3, Normal Speech ED Course And Treatment O2 Sat by Pulse Oximetry: 95 (Room air) Pulse Ox Interpretation: Normal Progress Note: Benadryl, solumedrol, and albuterol nebulizer administered. 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 - Scribe Statement The provider has reviewed the documentation as recorded by the Scribe Abhijit Reed All medical record entries made by the Scribe were at my direction and personally dictated by me. I have reviewed the chart and agree that the record accurately reflects my personal performance of the history, physical exam, medical decision making, and the department course for this patient. I have also personally directed, reviewed, and agree with the discharge instructions and disposition. Physician Patient Turnover Patient Signed Over To: Jaja Castro Handoff Comments: Pending meds and reevaluation.
[2018-12-10] MEDS ORDERED: DiphenhydrAMINE 50 mg/ml Inj ONE (07:04)
[2018-12-10] MEDS ORDERED: Albuterol-Ipratrop 3 mg / 0.5 (3 ml) UD ONE (07:55)
[2018-12-10 09:39] VITALS: BP 131/78; PULSE 82; RESP 18; TEMP 98.1; O2SAT 100
== END 2018-12-10 09:39 | disposition home or self-care (01) ==
LOC: C.ER 05:46
DX: J45.901 Unspecified asthma with (acute) exacerbation (principal)
CPT/HCPCS: 96374; 96375; 99284; J1200; J2930